=== PATIENT | male | born 1980 | race Hispanic/Latino ===

== ENCOUNTER 2018-08-16 09:54 | Inpatient (IN) | payer SELFPAY ==
[2018-08-16] MEDS ORDERED: hydrALAZINE 20 MG/ML VIAL ONE (10:30)
[2018-08-16 10:33] LABS: #Basophils 0.1 thou/uL (0.0-0.2); #Eosinphils 0.9 thou/uL (0.0-0.7); #Lymphocytes 2.4 thou/uL (1.20-3.40); #Monocytes 0.7 thou/uL (0.11-0.59); %Basophils 0.7 % (0.0-1.0); %Eosinophils 8.9 % (0.0-10.0); %Lymphocytes 23.7 % (21.0-51.0); %Neutrophils 59.7 % (42.0-75.0); Hemoglobin 15.3 g/dL (14.0-18.0); Mean Corpuscular HGB CONC 34.7 g/dL (32.0-36.0); Mean Corpuscular Hemoglobin 31.8 pg (27.0-31.0); Mean Corpuscular Volume 91.7 fL (78.0-98.0); Mean Platelet Volume 9.2 fL (7.4-10.4); Platelet Count 259 thou/uL (130-400); RBC Distribution Width 11.7 % (11.5-14.5); White Blood Cell (WBC) Count 10.1 thou/uL (4.8-10.8)
[2018-08-16 10:58] LABS: ALT (SGPT) 32 U/L (8-55); AST (SGOT) 46 U/L (5-34); Albumin 2.3 g/dL (3.5-5.0); Alkaline Phosphatase 77 U/L (40-150); Anion Gap 15 mmol/L (10-20); BUN (Urea Nitrogen) 27 mg/dL (8.9-20.6); Bilirubin, Total 0.4 mg/dL (0.2-1.2); Calc. Creatinine Clearance 0 mL/min (70-130); Calcium 8.1 mg/dL (7.8-10.44); Carbon Dioxide 22 mmol/L (22-29); Chloride 109 mmol/L (98-107); Estimated GFR-MDRD 28; Globulin 3.3 g/dL (2.4-3.5); Glucose 131 mg/dL (70-105); Potassium 4.8 mmol/L (3.5-5.1); Protein, Total 5.6 g/dL (6.0-8.3); Sodium 141 mmol/L (136-145)
--- NOTE | 2018-08-16 11:24 | RAD ---
FRONTAL RADIOGRAPH CHEST PORTABLE UPRIGHT: Date: 08-16-18 Comparison: None. History: Shortness of breath. Diaphoresis and tachycardia. FINDINGS: No pneumothorax is seen. No large volume pleural effusion is noted. There is increased linear interst itial density in the perihilar regions. There is a suggestion of subtle perihilar and right upper lob e ground glass opacity. IMPRESSION: Interstitial prominence with mild perihilar and right upper lobe ground glass opacity. Findings may b e on the basis of infectious pneumonitis or inhalational alveolitis. Clinical correlation is required . Recommend short term follow up imaging following treatment to document resolution. POS: [facility]
[2018-08-16 11:39] LABS: CKMB 6.3 ng/mL (0-6.6)
[2018-08-16 14:32] LABS: Troponin I 0.042 ng/mL (< 0.028)
[2018-08-16] MEDS ORDERED: cefTRIAXone\\ROCEPHIN 2 GM VIAL ONE (15:07)
[2018-08-16] MEDS ORDERED: Sodium Chloride 0.9% 100 ML ONE (15:07)
[2018-08-16] MEDS ORDERED: Azithromycin 500 MG VIAL ONE (15:07)
--- NOTE | 2018-08-16 16:12 | HP ---
PRIMARY CARE PHYSICIAN: [facility]. REASON FOR ADMISSION: Hypertensive urgency, acute kidney failure, dyspnea, and chest pain. HISTORY OF PRESENT ILLNESS: A 37-year-old male who reports that he does not have any medical history and he is not following any primary care physician. He was advised to go to emergency room by his sister, and that is why he came to emergency room. The patient reports that on Monday he was having dry cough and he was also having mild shortness of breath. Last night, the patient was having more shortness of breath. He was not able to lie down flat. He was feeling comfortable in sitting up position. In the right or left lateral position, he was feeling chest tightness and shortness of breath, so he remained seated up. Whenever he was keeping his both upper extremities elevated in sitting position, he was feeling better, but that was associated with shortness of breath. He was also having dry nonproductive cough. His chest pain was sharp, stabbing in nature, as if somebody stabbing in his chest. He has never had this type of problem before. He denies any fever or chills. He denies any recent upper respiratory or lower respiratory infection. He denies any flu vaccine this year. He reports that he never got sick for last 2 to 3 years. The patient reports that he is working in [employer] where exhaust fan is not working well, so he is exposed to high temperature, and he attributes everything related with that fume exposure. He denies any headache. He denies any focal motor or sensory symptoms. He denies any previous orthopnea or PND. He denies any dyspnea on exertion. When I saw this patient in the emergency room, the patient was hypertensive. Initially, in the emergency room, blood pressure was 258/132. He was tachycardic and afebrile. He denies any lower extremity edema or calf tenderness. He denies any syncope. He denies any constipation, diarrhea, melena, or hematochezia. The patient is not sure about his hypertension history or any kidney problem. REVIEW OF SYSTEMS: CONSTITUTIONAL: Negative for weight loss or gain, ability to conduct usual activities. SKIN: Negative for rash, itching. EYES: Negative for double vision, pain. ENT/MOUTH: Negative for nose bleeding, neck stiffness, pain, tenderness. CARDIOVASCULAR: Negative for palpitations, dyspnea on exertion, orthopnea. RESPIRATORY: Negative for shortness of breath, wheezing, cough, hemoptysis, fever or night sweats. GASTROINTESTINAL: Negative for poor appetite, abdominal pain, heartburn, nausea, vomiting, constipation, or diarrhea. GENITOURINARY: Negative for urgency, frequency, dysuria, nocturia. MUSCULOSKELETAL: Negative for pain, swelling. NEUROLOGIC/PSYCHIATRIC: Negative for anxiety, depression. ALLERGY/IMMUNOLOGIC: Negative for skin rash, bleeding tendency. Please see my HPI for pertinent positive and negative. All other review of systems reviewed and negative except as mentioned in the HPI. PAST MEDICAL HISTORY: The patient does not have any medical history in the past. He does not follow any doctor. PAST SURGICAL HISTORY: The patient denies any previous surgical history. PAST PSYCHIATRIC HISTORY: The patient denies any previous psychiatric history. SOCIAL HISTORY: The patient is smoking about one pack per day. He quit drinking 6 months ago, and he has a remote history of cocaine abuse which he quit 3 years ago. He is working in [employer]. FAMILY HISTORY: Grandparent is in dialysis. Father and mother both have diabetes and hypertension. ALLERGIES: NO KNOWN DRUG ALLERGIES. CURRENT HOME MEDICATIONS: The patient is not taking any prescribed or non-prescribed medication. EMERGENCY ROOM COURSE: The patient is given Rocephin, azithromycin, hydralazine 10 mg x2, NS 1 L. PHYSICAL EXAMINATION: VITAL SIGNS: On arrival, blood pressure 258/132 and currently 186/155, pulse 122 and currently 115, respiratory rate 15, temperature 98.9, and saturation 97% on room air. Weight 83.9 kg. GENERAL: The patient is currently alert, awake, in no obvious acute distress, hypertensive, tachycardic. HEENT: Head; normocephalic, atraumatic. Eyes; pupils are round, reactive to light. Extraocular muscle intact. ENT; oropharynx within normal limits. Moist mucous membranes. No oral lesion. No pharyngeal erythema. No exudate. NECK: Supple. No JVD. No thyromegaly. No carotid bruit. No lymphadenopathy. LUNGS: Clear to auscultation without any rhonchi or rales, but coarse breath sounds noted. No accessory muscles of respiration in use. CARDIAC: S1 and S2, regular, tachycardia. No murmur. No gallop. No rub. ABDOMEN: Soft. Bowel sounds present. Nontender. Nondistended. No organomegaly. No mass. No suprapubic tenderness. BACK: Unremarkable. No CVA tenderness. EXTREMITIES: Upper extremities; passive movement of all joints is normal. Lower extremities; no edema. Good distal pulsation. No calf tenderness. SKIN: No skin rash. HEMATOLOGICAL: No lymphadenopathy. PSYCHIATRIC: Normal affect. SIGNIFICANT LABORATORY DATA: EKG showing sinus tachycardia, nonspecific ST-T changes. Chest x-ray showing interstitial prominence with mild perihilar and right upper lobe ground-glass opacity. CBC: WBC 10.1, hemoglobin 15.3, platelet 259. BMP: Sodium 141, potassium 4.8, chloride 109, carbon dioxide 22, anion gap 15, BUN 27, creatinine 2.61, glucose 131, calcium 8.1. LFT: AST 46, ALT 32, alkaline phosphatase 77, albumin 2.3. CK-MB 6.3. Troponin I 0.067 and then 0.042. ASSESSMENT AND PLAN: 1. Acute hypertensive urgency. The patient has significantly elevated blood pressure. At this point, we will try to keep blood pressure systolic around 160 to 180 range. We will start nitroglycerin patch q.8 hourly. We will use hydralazine and labetalol p.r.n. basis. We will start Coreg 25 mg p.o. b.i.d., and tomorrow if blood pressure continues to remain high, then we will add calcium channel mark. During this admission, we will titrate his blood pressure medication. 2. Chest pain and dyspnea. I am suspecting diastolic dysfunction. We will obtain echocardiography. The patient also has elevated troponin, and thus I will do cardiac etiology, it needs to be ruled out. We will continue nitroglycerin patch q.8 hourly, aspirin 325 mg p.o. daily. We will check lipid profile for risk stratification. We will check BNP as well. 3. Acute kidney failure. I am suspecting from chronic hypertension related hypertensive nephrosclerosis given hypoalbuminemia. I will check urinalysis and urine protein-creatinine ratio. We will obtain renal ultrasound to rule out any medical renal disease. 4. Demand ischemia of myocardium, likely related with hypertensive urgency. We will do serial cardiac enzyme x3 and the patient is already on aspirin and nitroglycerin patch. 5. History of polysubstance abuse. We will check urine drug screen. Smoking cessation counseling given. Healthy lifestyle measure discussed with the patient. 6. Abnormal chest x-ray. I am suspecting abnormal chest x-ray from predominantly hypertension related early congestion, but underlying atypical pneumonia cannot be entirely excluded. We will continue with the empiric levofloxacin monotherapy while in the hospital, and I will also check respiratory virus panel. 7. Deep venous thrombosis prophylaxis, heparin 5000 units subcu twice daily. 8. Gastrointestinal prophylaxis, Pepcid 20 mg daily. CODE STATUS: The patient is full code. The patient does not have any surrogate decision maker. DISPOSITION PLAN: Based on clinical course, we are expecting the patient's stay in the hospital more than two midnights. Plan of care discussed with the patient in detail. Job ID: [id number]
[2018-08-16] MEDS ORDERED: Acetaminophen 325 MG TAB PO PRN ×2 (16:39→16:42)
[2018-08-16] MEDS ORDERED: Ondansetron ODT 4 MG TAB SL PRN (16:39)
[2018-08-16] MEDS ORDERED: Ondansetron PF 4 MG/2 ML Vial IVP PRN ×2 (16:39→16:42)
[2018-08-16] MEDS ORDERED: HYDROcodone/Acetaminophen 5/325 mg Tablet PO PRN (16:42)
[2018-08-16] MEDS ORDERED: Artificial Tears 18 DROP/0.9 ML EA EYE PRN (16:42)
[2018-08-16] MEDS ORDERED: Zolpidem Tartrate 5 MG TAB PO PRN (16:42)
[2018-08-16] MEDS ORDERED: Calcium Carbonate 500 MG ChewTAB PO PRN (16:42)
[2018-08-16] MEDS ORDERED: Labetalol HCl 100 MG/20 ML VIAL SLOW IVP PRN (16:42)
[2018-08-16] MEDS ORDERED: Bisacodyl 10 MG SUPP PR PRN (16:42)
[2018-08-16] MEDS ORDERED: Bisacodyl 5 MG TAB PO PRN (16:42)
[2018-08-16] MEDS ORDERED: Eucerin (Mineral Oil/Petrolatum,White) 30 gm Jar TOP PRN (16:42)
[2018-08-16] MEDS ORDERED: cloNIDine 0.1 MG TAB PO PRN (16:42)
[2018-08-16] MEDS ORDERED: hydrALAZINE 20 MG/ML VIAL SLOW IVP PRN (16:42)
[2018-08-16] MEDS ORDERED: Loratadine 10 MG TAB PO PRN (16:42)
[2018-08-16] MEDS ORDERED: Senokot S 8.6-50 MG TAB PO PRN (16:42)
[2018-08-16] MEDS ORDERED: Sodium Chloride 0.65% Nasal 44 ML BOT EA NARE PRN (16:42)
[2018-08-16] MEDS ORDERED: Cepastat Lozenges 1 LOZ PO PRN (16:42)
[2018-08-16] MEDS ORDERED: Nitroglycerin 0.4 MG TAB (25 Tab Bottle) SL PRN (16:42)
[2018-08-16] MEDS ORDERED: Diabetic Tussin 200 MG/10 ML UDCUP PO PRN (16:42)
[2018-08-16] MEDS ORDERED: Loperamide HCl 2 MG CAP PO PRN (16:42)
[2018-08-16] MEDS ORDERED: Ondansetron ODT 4 MG TAB PO PRN (16:42)
[2018-08-16] MEDS ORDERED: Azithromycin 500 MG in Sodium Chloride 0.9% 250 ML 250 ML IVPB SCH (16:45)
[2018-08-16 17:02] VITALS: BMI 27.2
[2018-08-16 17:48] LABS: Bilirubin Negative (Negative); Blood, Urine Small (Negative); Clarity CLEAR (Clear); Glucose, Urine (Dipstick) 500 mg/dL (Negative); Leukocyte Negative (Negative); Nitrite Negative (Negative); Protein, Urine (Dipstick) 300 mg/dL (Neg-Trace); Specific Gravity, Urine 1.014 (1.002-1.036); pH, Urine 6.5 (5.0-9.0)
[2018-08-16 17:49] LABS: Bacteria/HPF None Seen HPF (None Seen); Hyaline Casts/LPF 4-6 HYALINE CAST LPF (0-3 Hyaline); Pathc Cast-AUWi Flag 1.59 (0-2.49); WBC/HPF 0-3 HPF (0-3)
[2018-08-16 19:28] LABS: Amphetamine Not Detected (NotDetected); Barbiturates Screen Not Detected (NotDetected); Benzodiazepine Screen Not Detected (NotDetected); Cocaine Metabolite Screen Not Detected (NotDetected); Medtox Control Line Valid? VALID (VALID); Medtox Reader # READER 1; Methadone Not Detected (NotDetected); Methamphetamine Not Detected (NotDetected); Opiate Screen Not Detected (NotDetected); Oxycodone Screen Not Detected (NotDetected); Phencyclidine (PCP) Not Detected (NotDetected); THC/Cannabinoid Screen Not Detected (NotDetected); Tricyclic Screen Not Detected (NotDetected)
[2018-08-16] MEDS: Heparin 5,000 UNITS/ML VIAL SC SCH (20:45)
[2018-08-16] MEDS: Nitroglycerin 2% Ointment 1 INCH/1 GM Packet TOP SCH (20:45)
[2018-08-16] MEDS: guaiFENesin ER 600 MG TAB PO SCH (20:45)
[2018-08-16] MEDS: Carvedilol 25 MG TAB PO SCH (20:45)
[2018-08-17 05:35] LABS: #Basophils 0.1 thou/uL (0.0-0.2); #Eosinphils 0.8 thou/uL (0.0-0.7); #Lymphocytes 1.8 thou/uL (1.20-3.40); #Monocytes 0.7 thou/uL (0.11-0.59); #Neutrophils 5.3 thou/uL (1.40-6.50); %Basophils 0.6 % (0.0-1.0); %Eosinophils 9.2 % (0.0-10.0); %Monocytes 8.5 % (0.0-10.0); %Neutrophils 60.8 % (42.0-75.0); Hemoglobin 12.1 g/dL (14.0-18.0); Mean Corpuscular HGB CONC 34.3 g/dL (32.0-36.0); Mean Corpuscular Hemoglobin 31.7 pg (27.0-31.0); Mean Corpuscular Volume 92.3 fL (78.0-98.0); Mean Platelet Volume 9.3 fL (7.4-10.4); Platelet Count 227 thou/uL (130-400); RBC Distribution Width 11.8 % (11.5-14.5); Red Blood Cell (RBC) Count 3.81 mill/uL (4.70-6.10); White Blood Cell (WBC) Count 8.8 thou/uL (4.8-10.8)
[2018-08-17 05:38] LABS: ALT (SGPT) 23 U/L (8-55); AST (SGOT) 26 U/L (5-34); Albumin 1.9 g/dL (3.5-5.0); Alkaline Phosphatase 46 U/L (40-150); Anion Gap 8 mmol/L (10-20); BUN (Urea Nitrogen) 25 mg/dL (8.9-20.6); Bilirubin, Total 0.3 mg/dL (0.2-1.2); Calc. Creatinine Clearance 51 mL/min (70-130); Calcium 7.9 mg/dL (7.8-10.44); Carbon Dioxide 25 mmol/L (22-29); Cardiac Risk 5.9 (Less than 4.5); Chloride 111 mmol/L (98-107); Cholesterol 195 mg/dl (< 200 Desired); Estimated GFR-MDRD 30; Globulin 2.4 g/dL (2.4-3.5); Glucose 98 mg/dL (70-105); HDL Cholesterol 33 mg/dL (>60 Neg Risk); LDL Cholesterol, Calculated 143 mg/dL; Phosphorus 3.4 mg/dL (2.3-4.7); Potassium 3.6 mmol/L (3.5-5.1); Protein, Total 4.3 g/dL (6.0-8.3); Sodium 140 mmol/L (136-145); Triglycerides 96 mg/dL (Less than 150)
[2018-08-17] MEDS: Nitroglycerin 2% Ointment 1 INCH/1 GM Packet TOP SCH (05:40)
[2018-08-17 07:50] VITALS: TEMP 98.2
[2018-08-17] MEDS: Carvedilol 25 MG TAB PO SCH (07:51)
[2018-08-17] MEDS: guaiFENesin ER 600 MG TAB PO SCH (07:52)
[2018-08-17] MEDS: Heparin 5,000 UNITS/ML VIAL SC SCH (07:55)
[2018-08-17] MEDS ORDERED: Famotidine 20 MG TAB PO SCH (09:00)
[2018-08-17] MEDS ORDERED: Aspirin 325 MG TAB PO SCH (09:00)
[2018-08-17 09:19] VITALS: BP 124/76
--- NOTE | 2018-08-17 13:05 | DIS ---
DATE OF ADMISSION: 08/16/2018 DATE OF DISCHARGE: 08/17/2018 PRIMARY CARE PHYSICIAN: [facility] Call Admission. DISCHARGE DISPOSITION: Against medical advice. PRIMARY DISCHARGE DIAGNOSES: 1. Acute kidney failure. 2. Atypical pneumonia. 3. Elevated BNP. 4. Elevated troponin. 5. Hypertensive urgency. 6. Hypoalbuminemia. SECONDARY DISCHARGE DIAGNOSES: History of polysubstance abuse. PRIMARY PROCEDURE/OPERATION: None. RADIOLOGICAL INVESTIGATION: Chest x-ray showed interstitial prominence with mild perihilar and right upper lobe ground-glass opacity. LABORATORY DATA: Significant labs; WBC 8.8, hemoglobin 12.1, and platelet 227. Sodium 140, potassium 3.6, BUN 25, creatinine 2.41. LFT normal. Troponin 0.060. BNP 1522, PTH 184, LDL 143. Urinalysis showing proteinuria, glucosuria. Urine drug screen negative. Blood culture negative. Respiratory virus panel negative. DISCHARGE MEDICATION: The patient left against medical advice and without any prescription. CONTRAINDICATION: None. CODE STATUS: Full code. INPATIENT QUARRY SUPERVISOR OPEN PIT: None. TEST RESULTS PENDING ON DISCHARGE: None. ALLERGIES: NO KNOWN DRUG ALLERGIES. DISCHARGE PLAN POST HOSPITAL: The patient left hospital against medical advice. HOSPITAL COURSE: A 37-year-old male, who was admitted by me yesterday. Please see my HPI for further details. 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 He was not aware of any medical problem. He was made to go to ER by his sister. The patient was having dyspnea on exertion, chest pain, heaviness, and cough. We suspected atypical pneumonia based on chest x-ray, but on admission, he was having hypertensive urgency. His blood pressure was severely high. We also found acute kidney failure, hypoalbuminemia. We are suspecting hypertension-related nephrosclerosis from uncontrolled and untreated hypertension. He also has elevated BNP and we are suspecting diastolic dysfunction. We treated him with levofloxacin while in the hospital. We started antihypertensives medication while in the hospital. His blood pressure was not controlled upon discharge. We advised this patient to stay in the hospital for further evaluation. I spent significant amount of time to explain and pursue him to stay in the hospital for better take care of him, but he decided to leave against medical advice. I have seen and examined the patient at bedside. PHYSICAL EXAMINATION: VITAL SIGNS: Currently, temperature 98.2, pulse 94, respiratory rate 18, saturation 100% on room air, blood pressure 197/126, weight 189 pounds. GENERAL: The patient is currently alert and awake. No obvious acute distress. HEENT: Head; normocephalic and atraumatic. Eyes; pupils are round, reactive to light. Extraocular muscle intact. ENT; oropharynx within normal limits. Moist mucous membranes. No oral lesion. No pharyngeal erythema. No exudate. NECK: Supple. No JVD. No thyromegaly. No carotid bruit. LUNGS: Clear to auscultation without any rhonchi or rales. CARDIAC: S1 and S2 regular without any murmur. ABDOMEN: Soft and benign. EXTREMITIES: No edema. NEUROLOGIC: Nonfocal examination. The patient is medically not stable for discharge, but he left the hospital against medical advice. Job ID: [id number]
--- NOTE | 2018-08-18 13:48 | EKG ---
Test Reason : DIFF BREATHING Blood Pressure : / mmHG Vent. Rate : 121 BPM Atrial Rate : 121 BPM P-R Int : 142 ms QRS Dur : 100 ms QT Int : 346 ms P-R-T Axes : 044 042 063 degrees QTc Int : 491 ms Sinus tachycardia Possible Left atrial enlargement Nonspecific T wave abnormality Abnormal ECG Confirmed by ALESSANDRO REZA ([id number]), image editor RUBI SALAZAR ([id number]) on 08/18/2018 1:48:01 PM Referred By: Confirmed By:ALESSANDRO REZA
== END 2018-08-17 09:20 | disposition left against medical advice (07) | DRG 682 ==
LOC: ERS 09:54 → 2NO 13:30
PROVIDERS: ADMIT Internal Medicine; ATTEND Internal Medicine
DX: N17.9 Acute kidney failure, unspecified (principal); J18.9 Pneumonia, unspecified organism; I24.8 Other forms of acute ischemic heart disease; I16.0 Hypertensive urgency; I10 Essential (primary) hypertension; F14.11 Cocaine abuse, in remission; F17.210 Nicotine dependence, cigarettes, uncomplicated; E88.09 Other disorders of plasma-protein metabolism, not elsewhere classified
CPT/HCPCS: 36415; 71045; 80053; 80061; 80306; 81001; 82553; 83605; 83880; 83970; 84100; 84484; 85025; 87040; 87633; 93005; 96361; 96365; 96375; 96376; J0360; J0456; J0696; J1644; J1956; J7050

== ENCOUNTER 2018-11-26 18:30 | Inpatient (IN) | payer SELFPAY ==
[2018-11-26 19:17] LABS: #Basophils 0.1 thou/uL (0.0-0.2); #Eosinphils 0.9 thou/uL (0.0-0.7); #Lymphocytes 1.4 thou/uL (1.20-3.40); #Monocytes 0.8 thou/uL (0.11-0.59); #Neutrophils 8.8 thou/uL (1.40-6.50); %Basophils 0.5 % (0.0-1.0); %Eosinophils 7.3 % (0.0-10.0); %Lymphocytes 11.6 % (21.0-51.0); %Monocytes 7.1 % (0.0-10.0); %Neutrophils 73.6 % (42.0-75.0); Hemoglobin 10.5 g/dL (14.0-18.0); Mean Corpuscular HGB CONC 33.3 g/dL (32.0-36.0); Mean Corpuscular Hemoglobin 29.5 pg (27.0-31.0); Mean Corpuscular Volume 88.6 fL (78.0-98.0); Mean Platelet Volume 7.3 fL (7.4-10.4); Platelet Count 519 thou/uL (130-400); RBC Distribution Width 12.1 % (11.5-14.5); Red Blood Cell (RBC) Count 3.56 mill/uL (4.70-6.10); White Blood Cell (WBC) Count 11.9 thou/uL (4.8-10.8)
[2018-11-26 19:34] LABS: ALT (SGPT) 27 U/L (8-55); AST (SGOT) 27 U/L (5-34); Albumin 2.2 g/dL (3.5-5.0); Alkaline Phosphatase 77 U/L (40-150); Anion Gap 14 mmol/L (10-20); BUN (Urea Nitrogen) 44 mg/dL (8.9-20.6); Bilirubin, Total 0.2 mg/dL (0.2-1.2); Calc. Creatinine Clearance 0 mL/min (70-130); Calcium 8.7 mg/dL (7.8-10.44); Carbon Dioxide 18 mmol/L (22-29); Chloride 108 mmol/L (98-107); Estimated GFR-MDRD 23; Globulin 3.6 g/dL (2.4-3.5); Glucose 132 mg/dL (70-105); Potassium 4.5 mmol/L (3.5-5.1); Protein, Total 5.8 g/dL (6.0-8.3); Sodium 135 mmol/L (136-145)
[2018-11-26 19:37] LABS: Bilirubin Negative (Negative); Blood, Urine Moderate (Negative); Clarity CLOUDY (Clear); Glucose, Urine (Dipstick) 250 mg/dL (Negative); Leukocyte Negative (Negative); Nitrite Negative (Negative); Protein, Urine (Dipstick) 300 mg/dL (Neg-Trace); Specific Gravity, Urine 1.017 (1.002-1.036); Urobilinogen 0.2 mg/dL (0.2-1.0); pH, Urine 5.5 (5.0-9.0)
[2018-11-26 19:38] LABS: Squamous Epithelial 0-3 HPF (0-3)
[2018-11-26 19:39] LABS: Pathc Cast-AUWi Flag 3.67 (0-2.49)
[2018-11-26] MEDS ORDERED: Piperacillin/Tazobactam 4.5 GM VIAL ONE (19:48)
[2018-11-26 19:49] LABS: Bacteria/HPF 2+ HPF (None Seen); Hyaline Casts/LPF 0-3 HYALINE CAST LPF (0-3 Hyaline); Manual Microscopic Reviewed? No Path Casts Seen; Renal Epithelial None Seen HPF (0-3)
[2018-11-26 19:58] LABS: CKMB 6.9 ng/mL (0-6.6)
[2018-11-26] MEDS ORDERED: Vancomycin HCl 1.5 GM in Sodium Chloride 0.9% 250 ML 300 ML IVPB ONE (20:00)
--- NOTE | 2018-11-26 20:21 | RAD ---
CHEST ONE VIEW: History: Dyspnea. Comparison: 08-16-18 FINDINGS: Cardiac silhouette is magnified and upper limits of normal in size. Dense bilateral infiltrates invol ve primarily the lower lobes, obscuring the right hemidiaphragm. Pulmonary vasculature upper limits o f normal. No evidence of pneumothorax. Probable blunting of the right costophrenic angle with fluid. IMPRESSION: 1. Dense bilateral lower lobe infiltrates. Clinical correlation regarding other signs and symptoms of bilateral lower lobe pneumonia is required. 2. Probable small right pleural effusion. POS: [facility]
[2018-11-26] MEDS ORDERED: hydrALAZINE 20 MG/ML VIAL ONE ×2 (20:41→22:05)
[2018-11-26] MEDS ORDERED: Furosemide 40 MG/4 ML VIAL ONE (21:03)
[2018-11-26 22:08] LABS: Troponin I 0.048 ng/mL (< 0.028)
[2018-11-26] MEDS ORDERED: Ondansetron ODT 4 MG TAB SL PRN (23:16)
[2018-11-26] MEDS ORDERED: Ondansetron PF 4 MG/2 ML Vial IVP PRN (23:16)
[2018-11-26] MEDS ORDERED: Acetaminophen 325 MG TAB PO PRN ×2 (23:16→23:23)
[2018-11-26 23:38] VITALS: BMI 26.9
[2018-11-26] MEDS: Labetalol HCl 100 MG/20 ML VIAL SLOW IVP PRN (23:59)
--- NOTE | 2018-11-27 00:33 | HP ---
PRIMARY CARE PHYSICIAN: The patient does not have a primary care physician. CHIEF COMPLAINT: Shortness of breath, "I am having trouble breathing." HISTORY OF PRESENT ILLNESS: Mr. Lucas is a very pleasant 38-year-old gentleman. He says that he has had hypertension for at least 10 years, but has never had any medications for it. He was also recently hospitalized at our facility back in August for pneumonia and at that time, he left against medical advice. He says that he "was doing fine" until recently about 2 weeks ago he started getting pain in the center of his back when he breathes. He says it is not all the time, but it would happen off and on. He also mentions some mild dyspnea on exertion and says he has had an occasional cough, but denies any fevers or chills. No nausea, no vomiting. As a result, he came to the ER for evaluation. When he came to the ER, it was noted that his blood pressure was extremely high at 210/135. He had a chest x-ray that showed cardiomegaly and bilateral pulmonary vascular markings and he is being admitted for pneumonia and possibly CHF exacerbation. The patient also admits to some lower extremity edema over the last week, but denies any PND, no orthopnea, and he denies any chest pain. REVIEW OF SYSTEMS: All systems were reviewed and are negative except for that mentioned in the history of present illness. PAST MEDICAL HISTORY: Significant for hypertension for at least 10 years and has been untreated. PAST SURGICAL HISTORY: Negative. ALLERGIES: NO KNOWN DRUG ALLERGIES. FAMILY HISTORY: Significant for hypertension and diabetes in both parents and he had a grandfather with end-stage renal disease. SOCIAL HISTORY: He is single. No children. He says he is a former smoker. He quit this September. Prior to that, he smoked about 2 packs a day for 6 years and he also used to drink and quit a year ago. CURRENT MEDICATIONS: None. PHYSICAL EXAMINATION: VITAL SIGNS: Blood pressure was 188/123, heart rate 110, respiratory rate of 30, temperature is afebrile GENERAL: He is well developed and well nourished. He appears to be in no acute distress. HEENT: Pupils are equal, round, and reactive. Extraocular muscles are intact. Sclerae anicteric. Throat, no erythema, no exudates. NECK: No adenopathy. No bruits. LUNGS: He has coarse breath sounds bilaterally and some rales at both bases, but the left is greater than the right. CARDIOVASCULAR: He has a normal S1 and S2. It is mildly tachycardic. There was no S3 or S4. No murmurs, clicks, or rubs. ABDOMEN: Soft. It is nontender and nondistended. Positive for bowel sounds. No rebound or guarding. EXTREMITIES: He has 2+ pitting edema bilaterally. NEUROLOGIC: Cranial nerves 2 through 12 are intact. His muscle strength is 5/5. SKIN AND INTEGUMENT: He does have quite a bit of scarring and hyperpigmentation in the lower extremities. LABORATORY RESULTS: Sodium is 135, potassium 4.5, chloride is 108, CO2 is 18, BUN of 44, creatinine of 3.01, glucose is 132. He had troponin of 0.041. BNP of 2451. White blood cell count 11.9, hemoglobin of 10.5, hematocrit is 31.6, and platelet count was 519. On his EKG, it was sinus tachycardia. The heart rate is approximately 110. He had some evidence of left atrial enlargement, this is by my reading. Also had a chest x-ray showing cardiomegaly and increased pulmonary vascular markings, also by my reading. ASSESSMENT: This is a 38-year-old gentleman, who presents with progressive shortness of breath. He has uncontrolled hypertension and has had hypertension for many years untreated. He also has a chest x-ray with bilateral pulmonary vascular markings. He has an elevated BNP as well as elevated troponin. I suspect that the shortness of breath is most likely due to new onset congestive heart failure, likely systolic heart failure from uncontrolled hypertension. Pneumonia is also possibility; however, I think it is lower on the differential. His procalcitonin is negative. He does not have an elevated white count nor does he have fever. However, he has been started on antibiotics in the ER and we will go ahead and continue those for now. 1. Hypertension, uncontrolled. He will need to be started on medications for blood pressure. However, I would like to start an JEREMY inhibitor; but given his renal insufficiency, we will treat with beta mark and hydralazine and nitrates for now. 2. Probable new onset congestive heart failure. We will get an echocardiogram again, start him on a beta mark, JEREMY inhibitor. I am unable to start due to renal insufficiency and consult Cardiology should he have significantly low EF. 3. Acute on chronic kidney disease. Get a renal ultrasound and urine electrolytes and monitor his creatinine during the hospital stay. I suspect this is a progression of his chronic kidney disease from hypertension. We will also place him on DVT and GI prophylaxis. Job ID: [id number]
[2018-11-27 00:46] LABS: Creatinine, Urine 76.86 mg/dL (63-166)
[2018-11-27 01:46] LABS: Troponin I 0.051 ng/mL (< 0.028)
[2018-11-27] MEDS: cloNIDine 0.1 MG TAB PO PRN ×2 (04:25→12:49)
[2018-11-27] MEDS: Furosemide 40 MG/4 ML VIAL SLOW IVP SCH ×2 (06:16→12:49)
[2018-11-27 06:31] LABS: #Eosinphils 0.4 thou/uL (0.0-0.7); #Lymphocytes 0.8 thou/uL (1.20-3.40); #Monocytes 0.7 thou/uL (0.11-0.59); %Basophils 0.3 % (0.0-1.0); %Eosinophils 2.8 % (0.0-10.0); %Lymphocytes 6.2 % (21.0-51.0); %Monocytes 5.4 % (0.0-10.0); %Neutrophils 85.3 % (42.0-75.0); Hemoglobin 9.1 g/dL (14.0-18.0); Mean Corpuscular HGB CONC 33.4 g/dL (32.0-36.0); Mean Corpuscular Hemoglobin 29.9 pg (27.0-31.0); Mean Corpuscular Volume 89.7 fL (78.0-98.0); Mean Platelet Volume 7.2 fL (7.4-10.4); Platelet Count 388 thou/uL (130-400); RBC Distribution Width 12.1 % (11.5-14.5); Red Blood Cell (RBC) Count 3.05 mill/uL (4.70-6.10); White Blood Cell (WBC) Count 12.9 thou/uL (4.8-10.8)
[2018-11-27 06:35] LABS: Anion Gap 12 mmol/L (10-20); BUN (Urea Nitrogen) 42 mg/dL (8.9-20.6); Calc. Creatinine Clearance 41 mL/min (70-130); Calcium 8.1 mg/dL (7.8-10.44); Carbon Dioxide 19 mmol/L (22-29); Chloride 110 mmol/L (98-107); Estimated GFR-MDRD 25; Glucose 166 mg/dL (70-105); Potassium 4.1 mmol/L (3.5-5.1); Sodium 137 mmol/L (136-145)
--- NOTE | 2018-11-27 06:38 | ULT ---
RENAL SONOGRAM: HISTORY: Renal failure. FINDINGS: The right kidney is 11.2 cm. Exophytic cyst at the superior pole measures up to 1.9 cm. No hydronep hrosis. The urinary bladder is unremarkable. The left kidney is 11.8 cm, without hydronephrosis or mass. IMPRESSION: 1. No evidence of urinary tract obstruction. 2. Small right renal cyst. POS: [facility]
[2018-11-27] MEDS: Heparin 5,000 UNITS/ML VIAL SC SCH ×3 (08:55→20:37)
[2018-11-27] MEDS: Aspirin 325 MG TAB PO SCH (08:55)
[2018-11-27] MEDS: Famotidine 20 MG TAB PO SCH ×2 (08:55→20:37)
[2018-11-27] MEDS: Carvedilol 6.25 MG TAB PO SCH ×2 (08:55→16:45)
[2018-11-27] MEDS: hydrALAZINE 25 MG TAB PO SCH ×3 (08:55→20:37)
--- NOTE | 2018-11-27 19:38 | PDOC.PN ---
- Subjective Encounter Start Date: 11/27/18 Encounter Start Time: 11:00 Pt seen for followup re: hypertensive urgency. Denies chest pain. Reports SOBOE. - Objective Resuscitation Status - Order Detail: 11/26/18 21:42 Resuscitation Status Routine Resuscitation Status: FULL: Full Resuscitation MAR Reviewed: Yes Vital Signs & Weight: Vital Signs (12 hours) Temp Pulse BP 11/27/18 19:11 98.5 F 11/27/18 16:45 164/106 H 11/27/18 15:40 98.7 F 11/27/18 12:49 180/116 H 11/27/18 11:23 99.4 F 11/27/18 08:55 102 H 169/107 H Weight Weight 184 lb 5 oz Most Recent Monitor Data Heart Rate from ECG 88 NIBP 142/91 NIBP BP-Mean 108 Respiration from ECG 27 SpO2 92 I&O: 11/26/18 11/27/18 11/28/18 06:59 06:59 06:59 Intake Total 744 680 Output Total 1450 1600 Balance -706 -920 Result Diagrams: 11/27/18 05:30 11/27/18 05:30 EKG Reviewed by me: Yes (Tele: NSR) Dx/Plan (1) CHF exacerbation Code(s): I50.9 - HEART FAILURE, UNSPECIFIED Status: Acute Qualifiers: Heart failure type: systolic Qualified Code(s): I50.23 - Acute on chronic systolic (congestive) heart failure Comment: continue furosemide (2) Cardiomyopathy Code(s): I42.9 - CARDIOMYOPATHY, UNSPECIFIED Status: Chronic Comment: continue beta mark. No ACEI/ARB due to renal failure (3) Hypertensive urgency Code(s): I16.0 - HYPERTENSIVE URGENCY Status: Chronic Comment: Improving (4) CKD stage 4 secondary to hypertension Code(s): I12.9 - HYPERTENSIVE CHRONIC KIDNEY DISEASE W STG 1-4/UNSP CHR KDNY; N18.4 - CHRONIC KIDNEY DISEASE, STAGE 4 (SEVERE) Status: Chronic Comment: follow creatinine, lytes - Plan * . Review of Systems - Review of Systems Constitutional: negative: fever, chills, sweats, weakness, malaise Respiratory: SOB with Excertion. negative: Cough, Shortness of Breath, Pleuritic Pain, Wheezing Cardiovascular: negative: chest pain, palpitations, orthopnea, paroxysmal nocturnal dyspnea, edema, light headedness Gastrointestinal: negative: Nausea, Vomiting, Abdominal Pain, Diarrhea, Constipation, Melena, Hematochezia Skin: negative: Rash, Lesions, Kem, Bruising - Medications/Allergies Allergies/Adverse Reactions: Allergies Allergy/AdvReac Type Severity Reaction Status Date / Time No Known Drug Allergies Allergy Verified 08/16/18 17:14 Medications: Current Medications Acetaminophen (Tylenol) 650 mg PO Q4H PRN PRN Reason: Headache/Fever/Mild Pain (1-3) Aspirin (Aspirin) 325 mg PO DAILY [facility] Last Admin: 11/27/18 08:55 Dose: 325 mg Carvedilol (Coreg) 6.25 mg PO BID-[facility] Last Admin: 11/27/18 16:45 Dose: 6.25 mg Clonidine (Catapres) 0.1 mg PO Q4H PRN PRN Reason: SBP > 180 Last Admin: 11/27/18 12:49 Dose: 0.1 mg Famotidine (Pepcid) 20 mg PO BID [facility] Last Admin: 11/27/18 08:55 Dose: 20 mg Furosemide (Lasix) 40 mg SLOW IVP 0600,1400 [facility] Last Admin: 11/27/18 12:49 Dose: 40 mg Heparin Sodium (Porcine) (Heparin) 5,000 units SC TID [facility] Last Admin: 11/27/18 16:45 Dose: 5,000 units Hydralazine HCl (Apresoline) 25 mg PO TID [facility] Last Admin: 11/27/18 16:45 Dose: 25 mg Levofloxacin 500 mg/ Device 100 mls @ 100 mls/hr IVPB Q24HR [facility] Isosorbide Mononitrate (Imdur Er) 30 mg PO DAILY [facility] Last Admin: 11/27/18 08:55 Dose: 30 mg Labetalol HCl (Normodyne) 20 mg SLOW IVP Q4H PRN PRN Reason: SBP > 180 and HR >/= 70 Last Admin: 11/26/18 23:59 Dose: 20 mg
[2018-11-28] MEDS: Furosemide 40 MG/4 ML VIAL SLOW IVP SCH ×2 (06:02→14:02)
[2018-11-28] MEDS: cloNIDine 0.1 MG TAB PO PRN ×2 (06:07→23:37)
[2018-11-28] MEDS: hydrALAZINE 25 MG TAB PO SCH ×3 (08:37→20:02)
[2018-11-28] MEDS: Heparin 5,000 UNITS/ML VIAL SC SCH ×3 (08:37→20:03)
[2018-11-28] MEDS: Carvedilol 6.25 MG TAB PO SCH ×2 (08:37→16:32)
[2018-11-28] MEDS: Famotidine 20 MG TAB PO SCH ×2 (08:37→19:58)
[2018-11-28] MEDS: Aspirin 325 MG TAB PO SCH (08:37)
[2018-11-28 10:29] LABS: Anion Gap 12 mmol/L (10-20); BUN (Urea Nitrogen) 42 mg/dL (8.9-20.6); Calc. Creatinine Clearance 34 mL/min (70-130); Calcium 8.4 mg/dL (7.8-10.44); Carbon Dioxide 25 mmol/L (22-29); Chloride 105 mmol/L (98-107); Estimated GFR-MDRD 21; Glucose 202 mg/dL (70-105); Potassium 4.1 mmol/L (3.5-5.1); Sodium 138 mmol/L (136-145)
[2018-11-28 11:32] LABS: Band 2 % (5-11); Eosinophils 4 % (0-10); Hemoglobin 9.7 g/dL (14.0-18.0); Lymphocytes 6 % (21-51); MDiff Complete? YES; Mean Corpuscular HGB CONC 32.9 g/dL (32.0-36.0); Mean Corpuscular Hemoglobin 29.4 pg (27.0-31.0); Mean Corpuscular Volume 89.4 fL (78.0-98.0); Mean Platelet Volume 7.8 fL (7.4-10.4); Monocytes 2 % (0-10); Neutrophil 86 % (42-75); Platelet Count 445 thou/uL (130-400); Platelet Morphology Comment Appears Increased; Polychromasia SLIGHT = 2-3 cells (100X) (0-2/hpf); RBC Distribution Width 12.2 % (11.5-14.5); Red Blood Cell (RBC) Count 3.29 mill/uL (4.70-6.10); White Blood Cell (WBC) Count 12.2 thou/uL (4.8-10.8)
--- NOTE | 2018-11-28 12:56 | CON ---
DATE OF CONSULTATION: REASON FOR CONSULTATION: Elevated creatinine. HISTORY OF PRESENT ILLNESS: This is a 38-year-old gentleman, who presented to the hospital for shortness of breath, was noted to have congestive heart failure. The patient had CKD. His prior creatinine was 2.6 in August, which has now increased to 3.3, which has been progressive. PAST MEDICAL HISTORY: Significant for pneumonia, CKD, hypertension, and congestive heart failure. SOCIAL HISTORY: No alcohol or drug use. FAMILY HISTORY: Negative for ESRD. ALLERGIES: REVIEWED. HOME MEDICATIONS: List reviewed. REVIEW OF SYSTEMS: A 15-point review of system was performed, negative except for what was noted above. GENERAL: HEAD: NECK: No swelling or lumps. NOSE: No epistaxis or discharge. EYES: No diplopia or pain. 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 NEUROPSYCHIATRIC SYSTEMS: No suicidal ideation. No ideation. SKIN: Denies any rash or ulcer. CONSTITUTIONAL: No fever or chills. PHYSICAL EXAMINATION: GENERAL: The patient is awake and alert. VITAL SIGNS: Afebrile, pulse 92, breathing 16, blood pressure 162/88. GENERAL APPEARANCE AND MENTAL STATUS: Fair. HEAD/NECK: Normocephalic. Atraumatic. EYES: EOMI. No deformity. EARS: Clear. No ulcers. NOSE: Intact. No lesions. MOUTH: Clear. No discharge. THROAT: Clear. No exudate. LUNGS: Clear. No crackles. CARDIAC: S1, S2. No rub. ABDOMEN: Benign. Bowel sounds positive. GENITALIA/RECTUM: Roth absent. BACK/EXTREMITIES: Edema 0+. NEUROLOGICAL: Alert and motor intact. SKIN: LYMPHATICS: LABORATORY DATA: Labs reviewed. ASSESSMENT: 1. Stage 4, chronic kidney disease with acute kidney injury, most likely due to cardiorenal syndrome. Continue diuretics. 2. Hypertension, stable. 3. Anemia, stable. 4. We will follow renal function and order imaging if already not done. Job ID: [id number]
--- NOTE | 2018-11-28 14:13 | CON ---
DATE OF CONSULTATION: HISTORY OF PRESENT ILLNESS: The patient is an unfortunate 38-year-old gentleman, who presented with increasing dyspnea and lower extremity swelling. The patient was recently admitted to the hospital with the diagnosis of pneumonia. He was at that time markedly hypertensive. The patient states that for the past few months he has developed progressive dyspnea with minimal exertion. He also reports having PND and orthopnea. The patient also for the past week has developed lower extremity swelling. The patient denies having any chest discomfort. PAST MEDICAL HISTORY: Hypertension. PAST SURGICAL HISTORY: None. SOCIAL HISTORY: Long history of heavy alcohol use. The patient quit drinking a year ago. Former smoker. ALLERGIES: NO KNOWN DRUG ALLERGIES. MEDICATIONS: None. REVIEW OF SYSTEMS: Ten-point system otherwise unremarkable. PHYSICAL EXAMINATION: GENERAL: This is a well-developed gentleman, no acute distress. VITAL SIGNS: Blood pressure 143/94. NECK: Showed no jugular venous distention. LUNGS: Few crackles in both bases. HEART: Regular rate and rhythm. Normal S1 and S2. No murmurs. ABDOMEN: Nondistended. EXTREMITIES: Showed moderate bilateral edema. VASCULAR: Radial pulses are 2+. LABORATORY DATA: Sodium 138, potassium 4.1, chloride 105, bicarbonate 25, BUN 42, creatinine 3.3. Troponin 0.051. White blood cell count 12.2, hemoglobin 9.7, hematocrit 29.4, and platelets 445. DIAGNOSTIC DATA: EKG revealed normal sinus rhythm with left atrial enlargement. Echocardiogram revealed moderate decrease in left ventricular systolic function estimated ejection fraction of 30% to 35%. IMPRESSION: 1. Congestive heart failure. 2. Cardiomyopathy, probably secondary to alcohol abuse. 3. Poorly controlled hypertension. 4. Chronic renal insufficiency. 5. History of ethanol abuse. 6. History of tobacco abuse. This gentleman presents with a congestive heart failure and cardiomyopathy. From a cardiac standpoint, he is being diuresed with IV Lasix. He has severe chronic renal insufficiency, so would need to avoid JEREMY inhibitor therapy at this time and the patient has been started on hydralazine. We will switch the patient to Isordil. We will follow this patient with you through his hospitalization in my office. Job ID: [id number]
--- NOTE | 2018-11-28 19:20 | PDOC.PN ---
- Subjective Encounter Start Date: 11/28/18 Encounter Start Time: 10:00 Pt seen for followup re: systolic CHF exacerbation. says he feels better. - Objective Resuscitation Status - Order Detail: 11/26/18 21:42 Resuscitation Status Routine Resuscitation Status: FULL: Full Resuscitation MAR Reviewed: Yes Vital Signs & Weight: Vital Signs (12 hours) Temp Pulse Pulse BP BP BP Pulse Ox 11/28/18 16:32 147/102 H 11/28/18 15:14 98.8 F 11/28/18 14:02 162/108 H 11/28/18 10:45 99.3 F 11/28/18 09:51 99 91 175/106 H 163/106 H 90 L 11/28/18 08:37 162/108 H Weight Weight 177 lb 11.081 oz Most Recent Monitor Data Heart Rate from ECG 79 NIBP 136/86 NIBP BP-Mean 102 Respiration from ECG 39 SpO2 92 I&O: 11/27/18 11/28/18 11/29/18 06:59 06:59 06:59 Intake Total 744 1405 890 Output Total 1450 2700 1800 Balance -706 -1295 -910 Result Diagrams: 11/28/18 09:30 11/28/18 09:30 EKG Reviewed by me: Yes (Tele: NSR) Phys Exam - Physical Examination Constitutional: NAD HEENT: moist MMs, sclera anicteric, oral pharynx no lesions, 2+ tonsils Neck: no nodes, no JVD, supple, full ROM Bobby crackles Cardiovascular: RRR, no rub S1, S2 Gastrointestinal: soft, non-tender, no distention, positive bowel sounds Neurological: moves all 4 limbs Psychiatric: normal affect Dx/Plan (1) CHF exacerbation Code(s): I50.9 - HEART FAILURE, UNSPECIFIED Status: Acute Qualifiers: Heart failure type: systolic Qualified Code(s): I50.23 - Acute on chronic systolic (congestive) heart failure Comment: continue furosemide for acute systolic CHF NYHA Class 3, ACC/AHA Class C (2) Cardiomyopathy Code(s): I42.9 - CARDIOMYOPATHY, UNSPECIFIED Status: Chronic Comment: continue beta mark. (3) Hypertensive urgency Code(s): I16.0 - HYPERTENSIVE URGENCY Status: Chronic Comment: Improving (4) CKD stage 4 secondary to hypertension Code(s): I12.9 - HYPERTENSIVE CHRONIC KIDNEY DISEASE W STG 1-4/UNSP CHR KDNY; N18.4 - CHRONIC KIDNEY DISEASE, STAGE 4 (SEVERE) Status: Chronic Comment: consult nephrology - Plan * . Review of Systems - Review of Systems Constitutional: negative: fever, chills, sweats, weakness, malaise Respiratory: SOB with Excertion. negative: Cough, Shortness of Breath, Pleuritic Pain, Wheezing Cardiovascular: negative: chest pain, palpitations, orthopnea, paroxysmal nocturnal dyspnea, edema, light headedness Gastrointestinal: negative: Nausea, Vomiting, Abdominal Pain, Diarrhea, Constipation, Melena, Hematochezia Genitourinary: negative: Dysuria, Frequency, Incontinence, Hematuria, Retention - Medications/Allergies Allergies/Adverse Reactions: Allergies Allergy/AdvReac Type Severity Reaction Status Date / Time No Known Drug Allergies Allergy Verified 08/16/18 17:14 Medications: Current Medications Acetaminophen (Tylenol) 650 mg PO Q4H PRN PRN Reason: Headache/Fever/Mild Pain (1-3) Last Admin: 11/28/18 00:26 Dose: 650 mg Aspirin (Aspirin) 325 mg PO DAILY [facility] Last Admin: 11/28/18 08:37 Dose: 325 mg Carvedilol (Coreg) 6.25 mg PO BID-[facility] Last Admin: 11/28/18 16:32 Dose: 6.25 mg Clonidine (Catapres) 0.1 mg PO Q4H PRN PRN Reason: SBP > 180 Last Admin: 11/28/18 06:07 Dose: 0.1 mg Famotidine (Pepcid) 20 mg PO BID [facility] Last Admin: 11/28/18 08:37 Dose: 20 mg Furosemide (Lasix) 40 mg SLOW IVP 0600,1400 [facility] Last Admin: 11/28/18 14:02 Dose: 40 mg Heparin Sodium (Porcine) (Heparin) 5,000 units SC TID [facility] Last Admin: 11/28/18 14:02 Dose: 5,000 units Hydralazine HCl (Apresoline) 25 mg PO TID [facility] Last Admin: 11/28/18 14:02 Dose: 25 mg Levofloxacin 500 mg/ Device 100 mls @ 100 mls/hr IVPB Q24HR [facility] Last Admin: 11/27/18 20:36 Dose: 100 mls Isosorbide Mononitrate (Imdur Er) 30 mg PO DAILY [facility] Last Admin: 11/28/18 08:37 Dose: 30 mg Labetalol HCl (Normodyne) 20 mg SLOW IVP Q4H PRN PRN Reason: SBP > 180 and HR >/= 70 Last Admin: 11/26/18 23:59 Dose: 20 mg
[2018-11-29] MEDS: Labetalol HCl 100 MG/20 ML VIAL SLOW IVP PRN (02:09)
[2018-11-29 05:05] LABS: Anion Gap 12 mmol/L (10-20); BUN (Urea Nitrogen) 42 mg/dL (8.9-20.6); Calc. Creatinine Clearance 36 mL/min (70-130); Calcium 8.4 mg/dL (7.8-10.44); Carbon Dioxide 22 mmol/L (22-29); Chloride 105 mmol/L (98-107); Estimated GFR-MDRD 22; Glucose 102 mg/dL (70-105); Potassium 4.3 mmol/L (3.5-5.1); Sodium 135 mmol/L (136-145)
[2018-11-29 05:06] LABS: Band 1 % (5-11); Hemoglobin 9.2 g/dL (14.0-18.0); Hypochromia SLIGHT = 6-15 cells (100X) (0-5/hpf); Lymphocytes 5 % (21-51); MDiff Complete? YES; Mean Corpuscular HGB CONC 33.3 g/dL (32.0-36.0); Mean Corpuscular Volume 90.1 fL (78.0-98.0); Mean Platelet Volume 6.9 fL (7.4-10.4); Monocytes 3 % (0-10); Neutrophil 91 % (42-75); Platelet Count 433 thou/uL (130-400); Platelet Morphology Comment Appears Adequate; RBC Distribution Width 12.1 % (11.5-14.5); Red Blood Cell (RBC) Count 3.06 mill/uL (4.70-6.10)
[2018-11-29] MEDS: cloNIDine 0.1 MG TAB PO PRN (05:19)
[2018-11-29] MEDS: Furosemide 40 MG/4 ML VIAL SLOW IVP SCH ×2 (05:19→14:49)
[2018-11-29] MEDS: hydrALAZINE 25 MG TAB PO SCH ×3 (08:40→21:16)
[2018-11-29] MEDS: Carvedilol 6.25 MG TAB PO SCH ×2 (08:41→17:35)
[2018-11-29] MEDS: Aspirin 325 MG TAB PO SCH (08:41)
[2018-11-29] MEDS: Isosorbide Dinitrate 20 MG TAB PO SCH ×3 (08:41→21:16)
[2018-11-29] MEDS: Heparin 5,000 UNITS/ML VIAL SC SCH ×3 (08:42→21:16)
[2018-11-29] MEDS: Famotidine 20 MG TAB PO SCH ×2 (08:42→21:15)
--- NOTE | 2018-11-29 11:51 | PRG ---
DATE OF SERVICE: SUBJECTIVE: A 38-year-old gentleman, being seen for acute kidney injury. The patient denies any nausea, vomiting, or chest pain. OBJECTIVE: CONSTITUTIONAL: The patient is awake and alert. VITAL SIGNS: Pulse 75, breathing 16, and blood pressure 136/86. GENERAL APPEARANCE AND MENTAL STATUS: Fair. HEAD/NECK: Normocephalic. Atraumatic. EYES: EOMI. No deformity. EARS: Clear. No ulcers. NOSE: Intact. No lesions. MOUTH: Clear. No discharge. THROAT: Clear. No exudate. LUNGS: Clear. No crackles. CARDIAC: S1, S2. No rub. ABDOMEN: Benign. Bowel sounds positive. GENITALIA/RECTUM: Roth absent. BACK/EXTREMITIES: Edema 0+. NEUROLOGICAL: Alert and motor intact. SKIN: LYMPHATICS: LABORATORY DATA: Labs show hemoglobin of 9.2 and Creatinine 3.1. ASSESSMENT AND PLAN: 1. Acute kidney injury with chronic kidney disease, stage 4, stable. 2. Hypertension, stable. 3. Anemia, stable. No indication for dialysis. Continue diuresis as tolerated. Job ID: [id number]
--- NOTE | 2018-11-29 17:50 | PDOC.PN ---
- Subjective Encounter Start Date: 11/29/18 Encounter Start Time: 11:00 Pt seen for followup re: CHF exacerbation. Pt reports he feels better. - Objective Resuscitation Status - Order Detail: 11/26/18 21:42 Resuscitation Status Routine Resuscitation Status: FULL: Full Resuscitation MAR Reviewed: Yes Vital Signs & Weight: Vital Signs (12 hours) Temp Pulse Pulse Pulse Resp BP BP 11/29/18 15:55 98.6 F 78 20 11/29/18 14:49 76 129/84 11/29/18 10:39 98.6 F 11/29/18 10:38 82 81 127/85 11/29/18 08:40 84 136/86 11/29/18 08:00 11/29/18 07:12 98.8 F BP BP Pulse Ox Pulse Ox Pulse Ox 11/29/18 15:55 148/94 H 92 L 11/29/18 14:49 11/29/18 10:39 11/29/18 10:38 127/83 91 L 86 L 11/29/18 08:40 11/29/18 08:00 97 11/29/18 07:12 Weight Weight 173 lb 4.8 oz Most Recent Monitor Data Heart Rate from ECG 71 NIBP 129/84 NIBP BP-Mean 99 Respiration from ECG 24 SpO2 95 I&O: 11/28/18 11/29/18 11/30/18 06:59 06:59 06:59 Intake Total 1405 1390 Output Total 2700 2250 Balance -1295 -860 Result Diagrams: 11/29/18 04:36 11/29/18 04:36 EKG Reviewed by me: Yes (Tele: NSR) Phys Exam - Physical Examination Constitutional: NAD HEENT: moist MMs, sclera anicteric, oral pharynx no lesions, 2+ tonsils Neck: no nodes, supple, full ROM JVD Bobby crackles Cardiovascular: RRR, no rub S1, S2 Gastrointestinal: soft, non-tender, no distention, positive bowel sounds Musculoskeletal: edema present Neurological: moves all 4 limbs Psychiatric: normal affect, A&O x 3 Dx/Plan (1) CHF exacerbation Code(s): I50.9 - HEART FAILURE, UNSPECIFIED Status: Acute Qualifiers: Heart failure type: systolic Qualified Code(s): I50.23 - Acute on chronic systolic (congestive) heart failure Comment: Improving, continue furosemide (2) Cardiomyopathy Code(s): I42.9 - CARDIOMYOPATHY, UNSPECIFIED Status: Chronic Comment: on beta mark. (3) CKD stage 4 secondary to hypertension Code(s): I12.9 - HYPERTENSIVE CHRONIC KIDNEY DISEASE W STG 1-4/UNSP CHR KDNY; N18.4 - CHRONIC KIDNEY DISEASE, STAGE 4 (SEVERE) Status: Chronic Comment: appreciate nephrology service input (4) Hypertensive urgency Code(s): I16.0 - HYPERTENSIVE URGENCY Status: Resolved - Plan * . Review of Systems - Review of Systems Constitutional: negative: fever, chills, sweats, weakness, malaise Respiratory: SOB with Excertion. negative: Cough, Dry, Shortness of Breath, Hemoptysis, Pleuritic Pain, Sputum, Wheezing Cardiovascular: orthopnea, edema. negative: chest pain, palpitations, paroxysmal nocturnal dyspnea, light headedness Gastrointestinal: negative: Nausea, Vomiting, Abdominal Pain, Diarrhea, Constipation, Melena, Hematochezia Genitourinary: negative: Dysuria, Frequency, Incontinence, Hematuria, Retention Skin: negative: Rash, Lesions, Kem, Bruising - Medications/Allergies Allergies/Adverse Reactions: Allergies Allergy/AdvReac Type Severity Reaction Status Date / Time No Known Drug Allergies Allergy Verified 08/16/18 17:14 Medications: Current Medications Acetaminophen (Tylenol) 650 mg PO Q4H PRN PRN Reason: Headache/Fever/Mild Pain (1-3) Last Admin: 11/28/18 00:26 Dose: 650 mg Albuterol/Ipratropium (Duoneb) 3 ml NEB [id number] PRN PRN Reason: Dyspnea/Wheezing/SOB Aspirin (Aspirin) 325 mg PO DAILY [facility] Last Admin: 11/29/18 08:41 Dose: 325 mg Carvedilol (Coreg) 12.5 mg PO BID-[facility] Last Admin: 11/29/18 17:35 Dose: 12.5 mg Clonidine (Catapres) 0.1 mg PO Q4H PRN PRN Reason: SBP > 180 Last Admin: 11/29/18 05:19 Dose: 0.1 mg Famotidine (Pepcid) 20 mg PO BID [facility] Last Admin: 11/29/18 08:42 Dose: 20 mg Furosemide (Lasix) 40 mg SLOW IVP 0600,1400 [facility] Last Admin: 11/29/18 14:49 Dose: 40 mg Heparin Sodium (Porcine) (Heparin) 5,000 units SC TID [facility] Last Admin: 11/29/18 14:49 Dose: 5,000 units Hydralazine HCl (Apresoline) 50 mg PO TID [facility] Last Admin: 11/29/18 14:49 Dose: 50 mg Isosorbide Dinitrate (Isordil) 20 mg PO TID [facility] Last Admin: 11/29/18 14:49 Dose: 20 mg Labetalol HCl (Normodyne) 20 mg SLOW IVP Q4H PRN PRN Reason: SBP > 180 and HR >/= 70 Last Admin: 11/29/18 02:09 Dose: 20 mg Levofloxacin (Levaquin) 500 mg PO 1999 [facility]
[2018-11-30 05:47] LABS: Eosinophils 10 % (0-10); Hemoglobin 8.5 g/dL (14.0-18.0); Lymphocytes 11 % (21-51); MDiff Complete? YES; Mean Corpuscular HGB CONC 32.8 g/dL (32.0-36.0); Mean Corpuscular Hemoglobin 29.7 pg (27.0-31.0); Mean Corpuscular Volume 90.6 fL (78.0-98.0); Mean Platelet Volume 7.3 fL (7.4-10.4); Monocytes 9 % (0-10); Neutrophil 70 % (42-75); Platelet Count 402 thou/uL (130-400); RBC Distribution Width 12.1 % (11.5-14.5); Red Blood Cell (RBC) Count 2.85 mill/uL (4.70-6.10); White Blood Cell (WBC) Count 9.8 thou/uL (4.8-10.8)
[2018-11-30 05:49] LABS: Anion Gap 13 mmol/L (10-20); BUN (Urea Nitrogen) 46 mg/dL (8.9-20.6); Calc. Creatinine Clearance 28 mL/min (70-130); Calcium 8.1 mg/dL (7.8-10.44); Carbon Dioxide 22 mmol/L (22-29); Chloride 106 mmol/L (98-107); Estimated GFR-MDRD 17; Glucose 90 mg/dL (70-105); Potassium 4.1 mmol/L (3.5-5.1); Sodium 137 mmol/L (136-145)
[2018-11-30] MEDS: Furosemide 40 MG/4 ML VIAL SLOW IVP SCH (05:58)
[2018-11-30] MEDS: Heparin 5,000 UNITS/ML VIAL SC SCH ×3 (08:49→21:14)
[2018-11-30] MEDS: Isosorbide Dinitrate 20 MG TAB PO SCH ×3 (08:49→21:13)
[2018-11-30] MEDS ORDERED: Carvedilol 6.25 MG TAB PO SCH (08:49)
[2018-11-30] MEDS: Famotidine 20 MG TAB PO SCH ×2 (08:49→21:13)
[2018-11-30] MEDS: hydrALAZINE 25 MG TAB PO SCH ×3 (08:50→21:13)
[2018-11-30] MEDS: Aspirin 325 MG TAB PO SCH (08:50)
[2018-11-30] MEDS: Carvedilol 6.25 MG TAB PO SCH (08:50)
[2018-11-30] MEDS ORDERED: Carvedilol 25 MG TAB PO SCH (09:00)
--- NOTE | 2018-11-30 12:39 | PRG ---
DATE OF SERVICE: 11/30/2018 SUBJECTIVE: A 38-year-old gentleman being seen for acute kidney injury. The patient denies any nausea, vomiting, or chest pain. OBJECTIVE: CONSTITUTIONAL: The patient is awake and alert. VITAL SIGNS: Pulse 78, breathing 16, and blood pressure 120/74. GENERAL APPEARANCE AND MENTAL STATUS: Fair. HEAD/NECK: Normocephalic. Atraumatic. EYES: EOMI. No deformity. EARS: Clear. No ulcers. NOSE: Intact. No lesions. MOUTH: Clear. No discharge. THROAT: Clear. No exudate. LUNGS: Clear. No crackles. CARDIAC: S1, S2. No rub. ABDOMEN: Benign. Bowel sounds positive. GENITALIA/RECTUM: Roth absent. BACK/EXTREMITIES: Edema 0+. NEUROLOGICAL: Alert and motor intact. SKIN: LYMPHATICS: LABORATORY DATA: Labs showed hemoglobin 8.5, creatinine 3.87. ASSESSMENT AND PLAN: 1. Chronic kidney disease stage 4 with acute kidney injury due to cardiorenal syndrome. 2. Hypertension, stable. 3. Anemia, stable. 4. Medications based on GFR appropriate. No indication for dialysis at this time. We will follow renal function closely. Job ID: [id number]
[2018-11-30] MEDS: Carvedilol 25 MG TAB PO SCH (16:55)
--- NOTE | 2018-11-30 17:41 | PDOC.PN ---
- Subjective Encounter Start Date: 11/30/18 Encounter Start Time: 07:20 Pt seen for followup re: CHF exacerbation. Says he feels better. - Objective Resuscitation Status - Order Detail: 11/26/18 21:42 Resuscitation Status Routine Resuscitation Status: FULL: Full Resuscitation Vital Signs & Weight: Vital Signs (12 hours) Temp Pulse Pulse Pulse Resp BP BP 11/30/18 15:45 98.2 F 77 18 11/30/18 11:38 78 77 114/71 110/63 11/30/18 11:21 78 18 11/30/18 08:50 11/30/18 07:08 97.9 F 89 24 H BP BP Pulse Ox Pulse Ox Pulse Ox 11/30/18 15:45 152/95 H 99 11/30/18 11:38 95 94 L 11/30/18 11:21 120/74 94 L 11/30/18 08:50 96 11/30/18 07:08 168/98 H 96 Weight Weight 170 lb 13.732 oz Most Recent Monitor Data Heart Rate from ECG 71 NIBP 129/84 NIBP BP-Mean 99 Respiration from ECG 24 SpO2 95 I&O: 11/29/18 11/30/18 12/01/18 06:59 06:59 06:59 Intake Total 1390 610 Output Total 2250 850 Balance -860 -240 Result Diagrams: 11/30/18 04:40 11/30/18 04:40 Phys Exam - Physical Examination Constitutional: NAD HEENT: moist MMs Neck: supple Respiratory: clear to auscultation bilateral Cardiovascular: RRR Gastrointestinal: soft Neurological: moves all 4 limbs Psychiatric: normal affect Dx/Plan (1) CHF exacerbation Code(s): I50.9 - HEART FAILURE, UNSPECIFIED Status: Acute Qualifiers: Heart failure type: systolic Qualified Code(s): I50.23 - Acute on chronic systolic (congestive) heart failure Comment: Improved. Off of furosemide (2) Cardiomyopathy Code(s): I42.9 - CARDIOMYOPATHY, UNSPECIFIED Status: Chronic Comment: on beta mark. No ACEI/ARB due to renal failure. (3) CKD stage 4 secondary to hypertension Code(s): I12.9 - HYPERTENSIVE CHRONIC KIDNEY DISEASE W STG 1-4/UNSP CHR KDNY; N18.4 - CHRONIC KIDNEY DISEASE, STAGE 4 (SEVERE) Status: Chronic Comment: creatinine 3.87 today; diuretics on hold (4) Hypertensive urgency Code(s): I16.0 - HYPERTENSIVE URGENCY Status: Resolved - Plan * . Review of Systems - Review of Systems Respiratory: SOB with Excertion. negative: Cough, Shortness of Breath, Pleuritic Pain, Wheezing Cardiovascular: negative: chest pain, palpitations, orthopnea, paroxysmal nocturnal dyspnea, edema, light headedness - Medications/Allergies Allergies/Adverse Reactions: Allergies Allergy/AdvReac Type Severity Reaction Status Date / Time No Known Drug Allergies Allergy Verified 08/16/18 17:14 Medications: Current Medications Acetaminophen (Tylenol) 650 mg PO Q4H PRN PRN Reason: Headache/Fever/Mild Pain (1-3) Last Admin: 11/28/18 00:26 Dose: 650 mg Albuterol/Ipratropium (Duoneb) 3 ml NEB [id number] PRN PRN Reason: Dyspnea/Wheezing/SOB Aspirin (Aspirin) 325 mg PO DAILY [facility] Last Admin: 11/30/18 08:50 Dose: 325 mg Carvedilol (Coreg) 25 mg PO BID-[facility] Last Admin: 11/30/18 16:55 Dose: 25 mg Clonidine (Catapres) 0.1 mg PO Q4H PRN PRN Reason: SBP > 180 Last Admin: 11/29/18 05:19 Dose: 0.1 mg Famotidine (Pepcid) 20 mg PO BID [facility] Last Admin: 11/30/18 08:49 Dose: 20 mg Heparin Sodium (Porcine) (Heparin) 5,000 units SC TID [facility] Last Admin: 11/30/18 15:45 Dose: Not Given Hydralazine HCl (Apresoline) 50 mg PO TID [facility] Last Admin: 11/30/18 15:45 Dose: 50 mg Isosorbide Dinitrate (Isordil) 20 mg PO TID [facility] Last Admin: 11/30/18 15:45 Dose: 20 mg Labetalol HCl (Normodyne) 20 mg SLOW IVP Q4H PRN PRN Reason: SBP > 180 and HR >/= 70 Last Admin: 11/29/18 02:09 Dose: 20 mg Levofloxacin (Levaquin) 500 mg PO 1999 [facility] Last Admin: 11/29/18 21:15 Dose: 500 mg Sodium Chloride (Flush - Normal Saline) 10 ml IVF Q12HR [facility] Last Admin: 11/30/18 09:06 Dose: 10 ml Sodium Chloride (Flush - Normal Saline) 10 ml IVF PRN PRN PRN Reason: Saline Flush
[2018-12-01] MEDS: cloNIDine 0.1 MG TAB PO PRN ×2 (05:23→08:58)
[2018-12-01 07:13] LABS: Anion Gap 12 mmol/L (10-20); BUN (Urea Nitrogen) 48 mg/dL (8.9-20.6); Calc. Creatinine Clearance 28 mL/min (70-130); Calcium 8.1 mg/dL (7.8-10.44); Carbon Dioxide 23 mmol/L (22-29); Chloride 107 mmol/L (98-107); Estimated GFR-MDRD 18; Glucose 98 mg/dL (70-105); Sodium 138 mmol/L (136-145)
[2018-12-01] MEDS: Carvedilol 25 MG TAB PO SCH ×2 (08:57→16:16)
[2018-12-01] MEDS: hydrALAZINE 25 MG TAB PO SCH ×3 (08:57→20:32)
[2018-12-01] MEDS: Aspirin 325 MG TAB PO SCH (08:57)
[2018-12-01] MEDS: Isosorbide Dinitrate 20 MG TAB PO SCH ×3 (08:58→20:32)
[2018-12-01] MEDS: Famotidine 20 MG TAB PO SCH ×2 (08:58→20:32)
[2018-12-01] MEDS: Heparin 5,000 UNITS/ML VIAL SC SCH ×3 (09:01→20:32)
[2018-12-01 09:02] LABS: Band 3 % (5-11); Eosinophils 5 % (0-10); Hemoglobin 8.4 g/dL (14.0-18.0); Lymphocytes 16 % (21-51); MDiff Complete? YES; Mean Corpuscular HGB CONC 33.1 g/dL (32.0-36.0); Mean Corpuscular Hemoglobin 29.2 pg (27.0-31.0); Mean Corpuscular Volume 88.4 fL (78.0-98.0); Mean Platelet Volume 7.6 fL (7.4-10.4); Monocytes 6 % (0-10); Neutrophil 70 % (42-75); Platelet Count 417 thou/uL (130-400); RBC Distribution Width 11.9 % (11.5-14.5); Red Blood Cell (RBC) Count 2.88 mill/uL (4.70-6.10); White Blood Cell (WBC) Count 10.6 thou/uL (4.8-10.8)
--- NOTE | 2018-12-01 11:19 | PDOC.PN ---
- Subjective Encounter Start Date: 12/01/18 Encounter Start Time: 07:20 Pt seen for followup re: CHF exacerbation. Feels better. - Objective Resuscitation Status - Order Detail: 11/26/18 21:42 Resuscitation Status Routine Resuscitation Status: FULL: Full Resuscitation MAR Reviewed: Yes Vital Signs & Weight: Vital Signs (12 hours) Temp Pulse Resp BP BP Pulse Ox 12/01/18 08:57 79 174/103 H 12/01/18 08:55 97.8 F 16 99 12/01/18 04:00 98.3 F 94 17 174/110 H 92 L 11/30/18 23:54 98.9 F 89 20 150/89 H 93 L Weight Weight 168 lb Most Recent Monitor Data Heart Rate from ECG 71 NIBP 129/84 NIBP BP-Mean 99 Respiration from ECG 24 SpO2 95 I&O: 11/30/18 12/01/18 12/02/18 06:59 06:59 06:59 Intake Total 610 1080 Output Total 850 950 Balance -240 130 Result Diagrams: 12/01/18 05:25 12/01/18 05:25 EKG Reviewed by me: Yes (Tele: NSR) Phys Exam - Physical Examination Constitutional: NAD HEENT: moist MMs Neck: supple Respiratory: clear to auscultation bilateral Cardiovascular: RRR Gastrointestinal: positive bowel sounds Neurological: moves all 4 limbs Psychiatric: normal affect Dx/Plan (1) CHF exacerbation Code(s): I50.9 - HEART FAILURE, UNSPECIFIED Status: Acute Qualifiers: Heart failure type: systolic Qualified Code(s): I50.23 - Acute on chronic systolic (congestive) heart failure Comment: Improved. (2) Cardiomyopathy Code(s): I42.9 - CARDIOMYOPATHY, UNSPECIFIED Status: Chronic Comment: on beta mark. (3) CKD stage 4 secondary to hypertension Code(s): I12.9 - HYPERTENSIVE CHRONIC KIDNEY DISEASE W STG 1-4/UNSP CHR KDNY; N18.4 - CHRONIC KIDNEY DISEASE, STAGE 4 (SEVERE) Status: Chronic Comment: creatinine 3.77 today, improving (4) Hypertensive urgency Code(s): I16.0 - HYPERTENSIVE URGENCY Status: Resolved - Plan * . Review of Systems - Review of Systems Cardiovascular: negative: chest pain, palpitations, orthopnea, paroxysmal nocturnal dyspnea, edema, light headedness Gastrointestinal: negative: Nausea, Vomiting, Abdominal Pain, Diarrhea, Constipation, Melena, Hematochezia - Medications/Allergies Allergies/Adverse Reactions: Allergies Allergy/AdvReac Type Severity Reaction Status Date / Time No Known Drug Allergies Allergy Verified 08/16/18 17:14 Medications: Current Medications Acetaminophen (Tylenol) 650 mg PO Q4H PRN PRN Reason: Headache/Fever/Mild Pain (1-3) Last Admin: 11/28/18 00:26 Dose: 650 mg Albuterol/Ipratropium (Duoneb) 3 ml NEB [id number] PRN PRN Reason: Dyspnea/Wheezing/SOB Aspirin (Aspirin) 325 mg PO DAILY [facility] Last Admin: 12/01/18 08:57 Dose: 325 mg Carvedilol (Coreg) 25 mg PO BID-[facility] Last Admin: 12/01/18 08:57 Dose: 25 mg Clonidine (Catapres) 0.1 mg PO Q4H PRN PRN Reason: SBP > 180 Last Admin: 12/01/18 08:58 Dose: 0.1 mg Famotidine (Pepcid) 20 mg PO BID [facility] Last Admin: 12/01/18 08:58 Dose: 20 mg Heparin Sodium (Porcine) (Heparin) 5,000 units SC TID [facility] Last Admin: 12/01/18 09:01 Dose: 5,000 units Hydralazine HCl (Apresoline) 50 mg PO TID [facility] Last Admin: 12/01/18 08:57 Dose: 50 mg Isosorbide Dinitrate (Isordil) 20 mg PO TID [facility] Last Admin: 12/01/18 08:58 Dose: 20 mg Labetalol HCl (Normodyne) 20 mg SLOW IVP Q4H PRN PRN Reason: SBP > 180 and HR >/= 70 Last Admin: 11/29/18 02:09 Dose: 20 mg Levofloxacin (Levaquin) 500 mg PO 1999 [facility] Last Admin: 11/30/18 21:13 Dose: 500 mg Sodium Chloride (Flush - Normal Saline) 10 ml IVF Q12HR [facility] Last Admin: 12/01/18 08:58 Dose: 10 ml Sodium Chloride (Flush - Normal Saline) 10 ml IVF PRN PRN PRN Reason: Saline Flush
--- NOTE | 2018-12-01 11:49 | PRG ---
DATE OF SERVICE: 12/01/2018 SUBJECTIVE: A 38-year-old gentleman being seen for acute kidney injury. The patient denies any nausea, vomiting, or chest pain. OBJECTIVE: See above. CONSTITUTIONAL: Awake, alert, in no acute distress. VITAL SIGNS: Afebrile. Pulse 75, breathing 16, and blood pressure . GENERAL APPEARANCE AND MENTAL STATUS: Fair. HEAD/NECK: Normocephalic. Atraumatic. EYES: EOMI. No deformity. EARS: Clear. No ulcers. NOSE: Intact. No lesions. MOUTH: Clear. No discharge. THROAT: Clear. No exudate. LUNGS: Clear. No crackles. CARDIAC: S1, S2. No rub. ABDOMEN: Benign. Bowel sounds positive. GENITALIA/RECTUM: Roth absent. BACK/EXTREMITIES: Edema 0+. NEUROLOGICAL: Alert and motor intact. SKIN: LYMPHATICS: LABORATORY DATA: Labs reviewed. ASSESSMENT AND PLAN: 1. Stage 4 chronic kidney disease, stable. 2. Acute kidney injury, stable. 3. Hypertension, stable. 4. Anemia, stable. No indication for dialysis. 5. Edema is much better. 6. Congestive heart failure, stable. Job ID: [id number] [facility]
--- NOTE | 2018-12-01 16:05 | PDOC.CTH ---
Cardiology Progress Note - Subjective Feeling better. Breathing at baseline. - Objective Vital Signs Temp Pulse Resp BP BP Pulse Ox 12/01/18 11:38 98.7 F 80 18 109/58 L 98 12/01/18 08:57 79 174/103 H 12/01/18 08:55 97.8 F 16 99 Weight 168 lb 11/30/18 12/01/18 12/02/18 06:59 06:59 06:59 Intake Total 610 1080 Output Total 850 950 Balance -240 130 - Physical Examination General/Neuro: alert & oriented x3, NAD Neck: no JVD present Lungs: CTA, unlabored respirations Heart: RRR Abdomen: NT/ND Extremities: other: (no edema) - Telemetry Telemetry Rhythm: NSR - Labs Result Diagrams: 12/01/18 05:25 12/01/18 05:25 Troponin/CKMB CK-MB (CK-2) 6.9 ng/mL (0-6.6) H* 11/26/18 18:56 Troponin I 0.051 ng/mL (< 0.028) H 11/27/18 01:15 - Assessment/Plan 1. new onset dilated CM EF at 30-35% 2. CKD stage 4 3. Alcohool abuse 4. Tobacco abuse PLAN: - Medical therapy as cannot do [facility] due to renal function - [facility] before discharge. . - May discharge home when lifevest set up done. - Follow up with Dr. Bey in 1-2 months.
--- NOTE | 2018-12-01 21:00 | EKG ---
Test Reason : Blood Pressure : / mmHG Vent. Rate : 111 BPM Atrial Rate : 111 BPM P-R Int : 136 ms QRS Dur : 096 ms QT Int : 342 ms P-R-T Axes : 039 025 055 degrees QTc Int : 465 ms Sinus tachycardia Possible Left atrial enlargement Borderline ECG Similar to 16-AUG-2018 Confirmed by JESSENIA HAYNES DO ([id number]), editor producer GINA LANDON ([id number]) on 12/01/2018 9:00:08 PM Referred By: Confirmed By:JESSENIA HAYNES DO
[2018-12-02] MEDS: cloNIDine 0.1 MG TAB PO PRN (04:10)
[2018-12-02 09:11] LABS: #Basophils 0.1 thou/uL (0.0-0.2); #Eosinphils 0.8 thou/uL (0.0-0.7); #Lymphocytes 1.1 thou/uL (1.20-3.40); #Monocytes 0.9 thou/uL (0.11-0.59); #Neutrophils 7.6 thou/uL (1.40-6.50); %Basophils 0.5 % (0.0-1.0); %Eosinophils 7.6 % (0.0-10.0); %Lymphocytes 10.7 % (21.0-51.0); %Monocytes 8.7 % (0.0-10.0); %Neutrophils 72.5 % (42.0-75.0); Hemoglobin 8.5 g/dL (14.0-18.0); Mean Corpuscular HGB CONC 33.2 g/dL (32.0-36.0); Mean Corpuscular Hemoglobin 29.5 pg (27.0-31.0); Mean Corpuscular Volume 88.8 fL (78.0-98.0); Mean Platelet Volume 6.9 fL (7.4-10.4); Platelet Count 372 thou/uL (130-400); RBC Distribution Width 12.1 % (11.5-14.5); Red Blood Cell (RBC) Count 2.87 mill/uL (4.70-6.10); White Blood Cell (WBC) Count 10.4 thou/uL (4.8-10.8)
[2018-12-02 09:25] LABS: Anion Gap 12 mmol/L (10-20); BUN (Urea Nitrogen) 51 mg/dL (8.9-20.6); Calc. Creatinine Clearance 29 mL/min (70-130); Calcium 8.3 mg/dL (7.8-10.44); Carbon Dioxide 24 mmol/L (22-29); Chloride 108 mmol/L (98-107); Estimated GFR-MDRD 18; Glucose 115 mg/dL (70-105); Sodium 140 mmol/L (136-145)
[2018-12-02] MEDS: hydrALAZINE 25 MG TAB PO SCH ×3 (09:41→21:05)
[2018-12-02] MEDS: Carvedilol 25 MG TAB PO SCH ×2 (09:42→17:31)
[2018-12-02] MEDS: Aspirin 325 MG TAB PO SCH (09:43)
[2018-12-02] MEDS: Famotidine 20 MG TAB PO SCH ×2 (09:43→21:04)
[2018-12-02] MEDS: Isosorbide Dinitrate 20 MG TAB PO SCH ×3 (09:44→21:07)
[2018-12-02] MEDS: Heparin 5,000 UNITS/ML VIAL SC SCH ×3 (09:44→21:05)
--- NOTE | 2018-12-02 10:59 | PRG ---
DATE OF SERVICE: 12/02/2018 SUBJECTIVE: A 38-year-old gentleman being seen for acute kidney injury. The patient denies any nausea, vomiting, or chest pain. OBJECTIVE: CONSTITUTIONAL: The patient is awake and alert. VITAL SIGNS: Pulse 86, breathing 16, blood pressure 176/109. GENERAL APPEARANCE AND MENTAL STATUS: Fair. HEAD/NECK: Normocephalic. Atraumatic. EYES: EOMI. No deformity. EARS: Clear. No ulcers. NOSE: Intact. No lesions. MOUTH: Clear. No discharge. THROAT: Clear. No exudate. LUNGS: Clear. No crackles. CARDIAC: S1, S2. No rub. ABDOMEN: Benign. Bowel sounds positive. GENITALIA/RECTUM: Roth absent. BACK/EXTREMITIES: Edema 0+. NEUROLOGICAL: Alert and motor intact. SKIN: LYMPHATICS: LABORATORY DATA: Labs show hemoglobin 8.5, creatinine is 3.6. ASSESSMENT AND PLAN: 1. Chronic kidney disease, stage 4, stable. 2. Hypertension, stable. 3. Anemia, stable. 4. Hyperkalemia, stable. For hypertension, I would recommend increasing the hydralazine to 100 t.i.d. Job ID: [id number]
--- NOTE | 2018-12-02 13:03 | PDOC.PN ---
- Subjective Encounter Start Date: 12/02/18 Encounter Start Time: 07:40 P_t seen for followup re: CHF exacerbation. Feels well, no complaints. - Objective Resuscitation Status - Order Detail: 11/26/18 21:42 Resuscitation Status Routine Resuscitation Status: FULL: Full Resuscitation Vital Signs & Weight: Vital Signs (12 hours) Temp Pulse Resp BP BP BP Pulse Ox 12/02/18 09:41 86 176/109 H 12/02/18 08:00 97.5 F L 86 22 H 176/109 H 95 12/02/18 04:10 179/105 H 12/02/18 04:00 98.4 F 88 20 179/108 H 99 Weight Weight 169 lb Most Recent Monitor Data Heart Rate from ECG 71 NIBP 129/84 NIBP BP-Mean 99 Respiration from ECG 24 SpO2 95 I&O: 12/01/18 12/02/18 12/03/18 06:59 06:59 06:59 Intake Total 1080 667 Output Total 950 780 Balance 130 -113 Result Diagrams: 12/02/18 08:56 12/02/18 08:56 Phys Exam - Physical Examination Constitutional: NAD HEENT: moist MMs Neck: supple Respiratory: clear to auscultation bilateral Cardiovascular: RRR Gastrointestinal: soft Neurological: moves all 4 limbs Psychiatric: normal affect Dx/Plan (1) CHF exacerbation Code(s): I50.9 - HEART FAILURE, UNSPECIFIED Status: Acute Qualifiers: Heart failure type: systolic Qualified Code(s): I50.23 - Acute on chronic systolic (congestive) heart failure Comment: Improved. (2) Cardiomyopathy Code(s): I42.9 - CARDIOMYOPATHY, UNSPECIFIED Status: Chronic Comment: continue beta mark. (3) CKD stage 4 secondary to hypertension Code(s): I12.9 - HYPERTENSIVE CHRONIC KIDNEY DISEASE W STG 1-4/UNSP CHR KDNY; N18.4 - CHRONIC KIDNEY DISEASE, STAGE 4 (SEVERE) Status: Chronic Comment: creatinine 3.68 today, improving (4) Hypertensive urgency Code(s): I16.0 - HYPERTENSIVE URGENCY Status: Resolved - Plan * . Review of Systems - Review of Systems Respiratory: negative: Cough, Shortness of Breath, SOB with Excertion, Pleuritic Pain, Wheezing Cardiovascular: negative: chest pain, palpitations, orthopnea, paroxysmal nocturnal dyspnea, edema, light headedness - Medications/Allergies Allergies/Adverse Reactions: Allergies Allergy/AdvReac Type Severity Reaction Status Date / Time No Known Drug Allergies Allergy Verified 08/16/18 17:14 Medications: Current Medications Acetaminophen (Tylenol) 650 mg PO Q4H PRN PRN Reason: Headache/Fever/Mild Pain (1-3) Last Admin: 11/28/18 00:26 Dose: 650 mg Albuterol/Ipratropium (Duoneb) 3 ml NEB [id number] PRN PRN Reason: Dyspnea/Wheezing/SOB Aspirin (Aspirin) 325 mg PO DAILY [facility] Last Admin: 12/02/18 09:43 Dose: 325 mg Carvedilol (Coreg) 25 mg PO BID-[facility] Last Admin: 12/02/18 09:42 Dose: 25 mg Clonidine (Catapres) 0.1 mg PO Q4H PRN PRN Reason: SBP > 180 Last Admin: 12/02/18 04:10 Dose: 0.1 mg Famotidine (Pepcid) 20 mg PO BID [facility] Last Admin: 12/02/18 09:43 Dose: 20 mg Heparin Sodium (Porcine) (Heparin) 5,000 units SC TID [facility] Last Admin: 12/02/18 09:44 Dose: 5,000 units Hydralazine HCl (Apresoline) 50 mg PO TID [facility] Last Admin: 12/02/18 09:41 Dose: 50 mg Isosorbide Dinitrate (Isordil) 20 mg PO TID [facility] Last Admin: 12/02/18 09:44 Dose: 20 mg Labetalol HCl (Normodyne) 20 mg SLOW IVP Q4H PRN PRN Reason: SBP > 180 and HR >/= 70 Last Admin: 11/29/18 02:09 Dose: 20 mg Levofloxacin (Levaquin) 500 mg PO 1999 [facility] Last Admin: 12/01/18 20:32 Dose: 500 mg Sodium Chloride (Flush - Normal Saline) 10 ml IVF Q12HR [facility] Last Admin: 12/02/18 09:44 Dose: 10 ml Sodium Chloride (Flush - Normal Saline) 10 ml IVF PRN PRN PRN Reason: Saline Flush
[2018-12-03] MEDS: cloNIDine 0.1 MG TAB PO PRN (05:04)
[2018-12-03 06:14] LABS: #Basophils 0.1 thou/uL (0.0-0.2); #Eosinphils 0.7 thou/uL (0.0-0.7); #Lymphocytes 1.3 thou/uL (1.20-3.40); #Neutrophils 7.8 thou/uL (1.40-6.50); %Basophils 0.6 % (0.0-1.0); %Eosinophils 6.4 % (0.0-10.0); %Lymphocytes 11.7 % (21.0-51.0); %Monocytes 9.5 % (0.0-10.0); %Neutrophils 71.8 % (42.0-75.0); Hemoglobin 8.3 g/dL (14.0-18.0); Mean Corpuscular HGB CONC 32.7 g/dL (32.0-36.0); Mean Corpuscular Volume 88.7 fL (78.0-98.0); Mean Platelet Volume 7.1 fL (7.4-10.4); Platelet Count 387 thou/uL (130-400); RBC Distribution Width 12.2 % (11.5-14.5); Red Blood Cell (RBC) Count 2.86 mill/uL (4.70-6.10); White Blood Cell (WBC) Count 10.9 thou/uL (4.8-10.8)
[2018-12-03 06:36] LABS: Anion Gap 11 mmol/L (10-20); BUN (Urea Nitrogen) 54 mg/dL (8.9-20.6); Calc. Creatinine Clearance 30 mL/min (70-130); Calcium 8.2 mg/dL (7.8-10.44); Carbon Dioxide 24 mmol/L (22-29); Chloride 109 mmol/L (98-107); Estimated GFR-MDRD 18; Glucose 113 mg/dL (70-105); Sodium 140 mmol/L (136-145)
[2018-12-03] MEDS: Famotidine 20 MG TAB PO SCH (08:34)
[2018-12-03] MEDS: Heparin 5,000 UNITS/ML VIAL SC SCH ×2 (08:34→15:30)
[2018-12-03] MEDS: Carvedilol 25 MG TAB PO SCH (08:34)
[2018-12-03] MEDS: Aspirin 325 MG TAB PO SCH (08:34)
[2018-12-03] MEDS: Isosorbide Dinitrate 20 MG TAB PO SCH ×2 (08:35→15:09)
[2018-12-03] MEDS: hydrALAZINE 25 MG TAB PO SCH ×2 (08:35→15:09)
[2018-12-03 12:18] VITALS: TEMP 98.3
[2018-12-03 15:10] VITALS: BP 131/91
[2018-12-03] MEDS ORDERED: Carvedilol 25 MG TAB PO SCH (17:00)
--- NOTE | 2018-12-03 17:32 | PRG ---
DATE OF SERVICE: 12/03/2018 SUBJECTIVE: Patient was seen and examined at bedside and overnight events noted. Patient denies any shortness of breath or chest pain or palpitation. No history of nausea or vomiting or diarrhea or fever or chills or cramps. OBJECTIVE: GENERAL: This is a well-built male, in no apparent distress. VITAL SIGNS: Temperature 98.3, pulse 67, respiratory rate 18, blood pressure 128/79. HEENT: Atraumatic, normocephalic. Oral mucosa is moist NECK: Supple. CARDIOVASCULAR: S1, S2 heard. Rate and rhythm regular. RESPIRATORY: Clear to auscultation. GASTROINTESTINAL: Abdomen is soft. MUSCULOSKELETAL: No tenderness. No edema. DERMATOLOGIC: No skin rash. NEUROLOGIC: Alert and awake and oriented X3. No focal neurologic deficits. Moving all the extremities. PSYCHIATRIC: Mood and affect normal. LABORATORY DATA: Potassium is 4.0, BUN is 54, creatinine is ASSESSMENT AND PLAN: 1. Chronic kidney disease, stage 4, stable. 2. Hypertension. 3. Cardiorenal syndrome. 4. . 5. Anemia. No acute indication for dialysis. Follow up as an outpatient. Job ID: [id number]
--- NOTE | 2018-12-04 03:52 | DIS ---
DATE OF ADMISSION: 11/26/2018 DATE OF DISCHARGE: 12/03/2018 PRIMARY CARE PROVIDER: Mimi Schneider NP DISCHARGE DIAGNOSES: 1. Acute on chronic systolic congestive heart failure exacerbation, [place] [employer] stage III, ACC/AHA class C. 2. Cardiomyopathy. 3. Chronic kidney disease stage 4. 4. Hypertensive urgency. CONDITION OF PATIENT ON THE DAY OF DISCHARGE: Stable. I assessed Mr. Lucas on the day of discharge. He denies any chest pain or shortness of breath. Vital signs are stable. S1 and S2 are heard, regular. Lungs are clear to auscultation bilaterally. DISCHARGE MEDICATIONS: 1. Aspirin 325 mg daily. 2. Coreg 37.5 mg 2 times a day. 3. Hydralazine 50 mg 3 times a day. 4. Isosorbide dinitrate 20 mg 3 times a day. CONSULTATIONS DURING THIS HOSPITALIZATION: 1. Cardiology, Dr. Bey. 2. Nephrology, Dr. Regalado. HOSPITAL COURSE: Mr. Lucas is a pleasant 38-year-old gentleman who was admitted to [facility] on November 26, 2018, for controlled hypertension as well as congestive heart failure exacerbation and acute on chronic renal failure. Please refer to Dr. Olivares's history and physical note dated November 26, 2018, for further details. Chest x-ray was suggestive of pneumonia. However, the patient did not have any cough and was afebrile. He did have leukocytosis and received antibiotics during this hospitalization. He was seen by Nephrology and Cardiology services. Renal ultrasound on November 26, did not show any evidence of urinary tract obstruction. He has a small right renal cyst. 2D echocardiogram on November 27, showed left ventricular ejection fraction of 30% to 35%, mildly dilated left atrium, mild mitral regurgitation, mild tricuspid regurgitation, and normal pulmonary artery pressure. He was started on diuretics with improvement of his respiratory symptoms. He had worsening of his renal function with a creatinine that went from 3.01 on November 26 to 3.87 on November 30. It subsequently trended down to 3.68 after holding the diuretics. He continued to improve clinically. He was ambulating in the hallways. He is being discharged home in a stable condition. At the time of this dictation, Mr. Lucas is awaiting for LifeVest placement. Many thanks for allowing me to participate in your patient's care. Please feel free to contact me with any questions or concerns. DISCHARGE DESTINATION: Home. TIME SPENT: Total amount of time spent coordinating this discharge: 32 minutes. Job ID: [id number]
== END 2018-12-03 15:42 | disposition home or self-care (01) | DRG 291 ==
LOC: ERS 18:30 → ERHOLD 21:14 → IMCU/EMU 23:22 → 2NO 11-29 15:33
PROVIDERS: ADMIT Emergency Medicine; ATTEND Emergency Medicine
DX: I13.0 Hypertensive heart and chronic kidney disease with heart failure and stage 1 through stage 4 chronic kidney disease, or unspecified chronic kidney disease (principal); I50.23 Acute on chronic systolic (congestive) heart failure; J18.9 Pneumonia, unspecified organism; N18.4 Chronic kidney disease, stage 4 (severe); N17.9 Acute kidney failure, unspecified; E87.5 Hyperkalemia; I42.9 Cardiomyopathy, unspecified; I16.0 Hypertensive urgency; D64.9 Anemia, unspecified; F10.11 Alcohol abuse, in remission; N28.1 Cyst of kidney, acquired; I08.1 Rheumatic disorders of both mitral and tricuspid valves; Z87.891 Personal history of nicotine dependence
CPT/HCPCS: 36415; 71045; 76770; 80048; 80053; 81003; 81015; 82436; 82553; 82570; 83605; 83880; 84145; 84300; 84484; 85007; 85025; 85027; 87040; 87086; 93005; 93306; 93798; 96361; 96365; 96366; 96367; 96375; 96376; J0360; J1644; J1940; J1956; J2543; J3370; J7050

== ENCOUNTER 2019-06-07 12:13 | Inpatient (IN) | payer OTHER, SELFPAY ==
[2019-06-07 12:40] LABS: #Basophils 0.1 thou/uL (0.0-0.2); #Eosinphils 0.3 thou/uL (0.0-0.7); #Lymphocytes 1.8 thou/uL (1.20-3.40); #Monocytes 0.7 thou/uL (0.11-0.59); #Neutrophils 4.9 thou/uL (1.40-6.50); %Eosinophils 4.4 % (0.0-10.0); %Lymphocytes 22.7 % (21.0-51.0); %Monocytes 9.5 % (0.0-10.0); %Neutrophils 62.4 % (42.0-75.0); Hemoglobin 10.5 g/dL (14.0-18.0); Mean Corpuscular HGB CONC 34.4 g/dL (32.0-36.0); Mean Corpuscular Hemoglobin 31.5 pg (27.0-31.0); Mean Corpuscular Volume 91.7 fL (78.0-98.0); Platelet Count 169 thou/uL (130-400); RBC Distribution Width 13.2 % (11.5-14.5); Red Blood Cell (RBC) Count 3.34 mill/uL (4.70-6.10); White Blood Cell (WBC) Count 7.8 thou/uL (4.8-10.8)
[2019-06-07 13:24] LABS: ALT (SGPT) 24 U/L (8-55); AST (SGOT) 17 U/L (5-34); Albumin 2.7 g/dL (3.5-5.0); Alkaline Phosphatase 63 U/L (40-110); Anion Gap 18 mmol/L (10-20); BUN (Urea Nitrogen) 70 mg/dL (8.9-20.6); Bilirubin, Total 0.3 mg/dL (0.2-1.2); Calc. Creatinine Clearance 0 mL/min (70-130); Calcium 6.9 mg/dL (7.8-10.44); Carbon Dioxide 18 mmol/L (22-29); Chloride 111 mmol/L (98-107); Estimated GFR-MDRD 7; Globulin 2.5 g/dL (2.4-3.5); Glucose 115 mg/dL (70-105); Protein, Total 5.2 g/dL (6.0-8.3); Sodium 143 mmol/L (136-145)
[2019-06-07 13:31] LABS: CKMB 4.2 ng/mL (0-6.6)
[2019-06-07] MEDS ORDERED: Nitroglycerin 2% Ointment 1 INCH/1 GM Packet ONE (13:35)
--- NOTE | 2019-06-07 13:42 | RAD ---
SINGLE VIEW CHEST: Date: 06/07/19 COMPARISON: 11/26/18. HISTORY: Cough. FINDINGS: Single view of the chest shows a normal sized cardiomediastinal silhouette. There is no evidence of c onsolidation, mass, or pleural effusion. The bones are unremarkable. IMPRESSION: No evidence of acute cardiopulmonary disease. POS: CET
[2019-06-07] MEDS ORDERED: Heparin 10,000 UNITS/1 ML VIAL ONE (15:00)
--- NOTE | 2019-06-07 16:30 | OP ---
DATE OF PROCEDURE: 06/07/2019 PREOPERATIVE DIAGNOSIS: Acute renal failure. POSTOPERATIVE DIAGNOSIS: Acute renal failure. PROCEDURE PERFORMED: Placement of a triple-lumen right femoral Trialysis catheter. INDICATIONS FOR PROCEDURE: A 38-year-old man, presented with worsening acute kidney disease. I was asked to place a temporary dialysis access to facilitate hemodialysis. DESCRIPTION OF PROCEDURE: Informed consent was obtained from the patient, who was placed in supine position. The right groin was sterilely prepped and draped in usual fashion. Right femoral artery was palpated at the groin and skin medial to the palpated vessel was anesthetized with 1% lidocaine. The right femoral vein was cannulated with an 18-gauge introducer needle returning dark venous blood. Guidewire was passed through the needle and advanced into the right femoral vein without resistance. Needle was withdrawn over the guidewire. A stab incision was made adjacent to the guidewire using 11 scalpel. Dilator was passed over the guidewire dilating the subcutaneous tissues. Dilator was removed and a triple-lumen Trialysis catheter was advanced over the guidewire and placed in the right femoral vein without resistance and advanced to the hub. The guidewire was removed. Dark venous blood was aspirated from all three ports, which were individually flushed first with saline and then with heparin. Catheter was secured to right groin using 3-0 nylon suture at two points. Sterile dressings were applied. The patient tolerated the procedure without any apparent complication and remains hemodynamically stable following completion of procedure. Job ID: [id number]
[2019-06-07 16:56] VITALS: BMI 26.9
[2019-06-07] MEDS ORDERED: Senokot S 8.6-50 MG TAB PO PRN (17:06)
[2019-06-07] MEDS ORDERED: hydrALAZINE 25 MG TAB PO SCH (17:45)
[2019-06-07] MEDS: Acetaminophen 325 MG TAB PO PRN (17:47)
[2019-06-07] MEDS ORDERED: Acetaminophen ER (8hr) 650 MG TAB PO PRN (17:51)
[2019-06-07] MEDS ORDERED: hydrALAZINE 20 MG/ML VIAL SLOW IVP PRN (18:29)
[2019-06-07] MEDS: cloNIDine 0.2 MG TAB PO SCH (18:33)
--- NOTE | 2019-06-07 18:39 | HP ---
[facility] [place] DESIZING MACHINE OFFBEARER: Dr. Bey. OFFICE COPY SELECTOR: Dr. Regalado. CHIEF COMPLAINT: Abnormal labs, feeling unwell for the last week. HISTORY OF PRESENT ILLNESS: Mr. Lucas is a 38-year-old man, who has not been feeling well for the last couple of weeks. Reports that Dr. Regalado had ordered some lab work done this week in preparation for a visit he had next week. called the office today. Dr. Regalado reviewed his labs and told him that he needed to come to the emergency room. Reports that his creatinine was up more than normal, that it has been hovering around 4; today in the emergency room, it was at 8.72. The patient reports was on Tamiflu last week. The patient feels like he has some sort of viral illness over the last week and has not felt well. Reports decreased appetite, increased abdomen bloating. Reports that he is on Lasix and he has been urinating as normal, but he just does not feel any better. Does report some shortness of breath, some dyspnea on exertion and reports a cough. Denies any fever or chills. Dr. Regalado was consulted from the emergency room and stated that he would probably need dialysis and asked for either a temporary or a permanent dialysis catheter placed. Dr. Morin was consulted so that she would get to it on Monday or Monday and that if he needed emergent dialysis, then a temporary catheter needed to be placed over the weekend, and Dr. Wise was contacted from the emergency room and he put in a right femoral catheter in preparation for dialysis. He will be admitted to the hospital for further management. REVIEW OF SYSTEMS: Abnormal labs, cough, decreased appetite, and abdomen distention. PAST MEDICAL HISTORY: Congestive heart failure, hypertension. Has had pneumonia in the past, end-stage renal disease. PAST SURGICAL HISTORY: None. PSYCHIATRIC HISTORY: None. SOCIAL HISTORY: Denies any drug or smoking. He is a former smoker, quit in September 2018. Alcohol, did drink alcohol, but he did quit in November of 2017. Lives at home. KNOWN ALLERGIES: None. HOME MEDICATIONS: 1. Hydralazine 50 mg p.o. t.i.d. 2. Clonidine 0.1 mg b.i.d. 3. Coreg 25 mg p.o. b.i.d. 4. Isosorbide 60 mg p.o. b.i.d. 5. Furosemide 40 mg p.o. twice a day. 6. Lipitor 10 mg p.o. once a day. 7. Aspirin 325 mg once a day. These medications will still need to be reconciled. PHYSICAL EXAMINATION: VITAL SIGNS: Blood pressure 178/118, pulse is 69, respirations are 14, temperature is 98, and pO2 sats are 99% on room air. CONSTITUTIONAL: The patient appears nontoxic. He is alert and oriented to person, place, and time, is in no apparent distress. HEENT: Head is atraumatic and normocephalic. Eyes, eyelids are normal to inspection. Pupils are equally round and reactive to light. ENT, mouth exam is normal. Mucous membranes are moist. NECK: Normal range of motion. Trachea is midline. RESPIRATORY/CHEST: Breath sounds with faint crackles bilaterally in the bases. Chest expansion is equal. CARDIOVASCULAR: Regular heart rate and rhythm. Heart sounds are normal. ABDOMEN: Bowel sounds are heard. There is mild distention present. No peritoneal signs. BACK: Normal range of motion. No CVA tenderness. EXTREMITIES: Upper extremity, normal inspection, normal range of motion. Radial pulses normal. Lower extremity, normal range of motion. Motor strength is normal. Pedal pulses are normal. There is no edema noted. NEUROLOGIC: The patient is oriented to person, place, and time. Speech is normal. No focal sensory or motor deficits. SKIN: Warm and dry. Normal in color. PSYCH: Oriented to person, place, and time. Normal affect. LABORATORY DATA: EKG in the emergency room shows normal sinus rhythm, beats per minute 73, ST abnormality, prolonged QT. Worsening kidney function. Family reports that Dr. Regalado has been talking to them that dialysis may be needed at some point today. Creatinine is 8 yesterday, 8.72 today. The last value we had was from April 01, 2019, at that time, the creatinine was 5.72. GFR in March was 11 to 12; today it is 7. Troponin here is 0.035. BNP 670, calcium 6.9. PLAN AND ASSESSMENT: 1. End-stage renal disease with increased creatinine, decreased GFR. Dr. Regalado has been consulted. Dr. Wise has placed a temporary dialysis catheter. The patient will be admitted to the floor. We will trend troponins. Dr. Regalado has been consulted. 2. Hypertension. We will restart home medications. 3. Hyperlipidemia. Restart home medications. 4. History of congestive heart failure. Reports that his EF has been as low as 20%, but it is rebounded and the last time it was checked, it was closer to 50%. Last echo here was in November 2018 and EF at that time was 30% to 35%. The patient reports that it has been checked by Dr. Bey since then and has improved and he came off the LifeVest. Restart home medications. 5. Gastrointestinal and deep venous thrombosis prophylaxis has been started. 6. Hospital course dependent on clinical findings. Job ID: [id number]
[2019-06-07] MEDS: hydrALAZINE 25 MG TAB PO SCH (22:27)
[2019-06-07] MEDS: Famotidine 20 MG TAB PO SCH (22:27)
[2019-06-07] MEDS: Furosemide 40 MG TAB PO SCH (22:27)
[2019-06-07] MEDS: Isosorbide Dinitrate 20 MG TAB PO SCH (22:27)
[2019-06-07 22:47] LABS: HBSAB Concentration 0.98 mIU/mL; HBSAg Index 0.25 S/CO (0-0.99); Hep B Surf AB Non-Reactive (NonReactive); Hep B Surf Ag Non-Reactive S/CO (NonReactive)
[2019-06-07] MEDS ORDERED: Tuberculin PPD 0.1 ML VIAL I-DERMAL SCH (23:00)
--- NOTE | 2019-06-08 00:53 | CON ---
DATE OF CONSULTATION: 06/07/2019 CONSULTING PHYSICIAN: MENDEZ Grigsby REASON FOR CONSULT: Abnormal labs and need for dialysis. CHIEF COMPLAINT: Unwell and abnormal labs. HISTORY OF PRESENT ILLNESS: This is a 38-year-old male with history of CHF, hypertension, came to the hospital with abnormal labs and not feeling well. The patient has been having CKD stage 4 and was in need for dialysis and was sent by Dr. Regalado. No fever or chills. No nausea or vomiting. The patient was seen during dialysis, tolerating well. He had 2 hours of dialysis today. PAST MEDICAL HISTORY: Positive also CHF, hypertension, pneumonia, end-stage renal disease. PAST SURGICAL HISTORY: Dialysis access placement. HOME MEDICATIONS: 1. Hydralazine. 2. Clonidine. 3. Coreg. 4. Isosorbide. 5. Furosemide. 6. Lipitor. 7. Aspirin. ALLERGIES: NO KNOWN DRUG ALLERGIES. SOCIAL HISTORY: No smoking, alcohol, or illicit drugs. FAMILY HISTORY: No history of kidney disease. REVIEW OF SYSTEMS: CONSTITUTIONAL: Negative for weight loss or gain, ability to conduct usual activities. SKIN: Negative for rash, itching. EYES: Negative for double vision, pain. ENT/MOUTH: Negative for nose bleeding, neck stiffness, pain, tenderness. CARDIOVASCULAR: Negative for palpitations, dyspnea on exertion, orthopnea. RESPIRATORY: Negative for shortness of breath, wheezing, cough, hemoptysis, fever or night sweats. GASTROINTESTINAL: Negative for poor appetite, abdominal pain, heartburn, nausea, vomiting, constipation, or diarrhea. GENITOURINARY: Negative for urgency, frequency, dysuria, nocturia. MUSCULOSKELETAL: Negative for pain, swelling. NEUROLOGIC/PSYCHIATRIC: Negative for anxiety, depression. ALLERGY/IMMUNOLOGIC: Negative for skin rash, bleeding tendency. Rest are negative PHYSICAL EXAMINATION: GENERAL: This is a well-built male, in no apparent distress. VITAL SIGNS: Temperature 98.0, pulse respiratory rate 18, blood pressure 206/106. HEENT: Atraumatic, normocephalic. Oral mucosa is moist. NECK: Supple. CV: S1, S2. Rate and rhythm regular. RESPIRATORY: Clear. GI: Abdomen is soft. MUSCULOSKELETAL: 1+ edema. DERMATOLOGIC: No skin rash. NEUROLOGIC: Alert and awake. PSYCH: Mood and affect normal. LABORATORY DATA: Hemoglobin is 10.5, potassium is 4.0, BUN is 70, creatinine is 8.7, albumin 2.7. ASSESSMENT AND PLAN: 1. End-stage renal disease, started on hemodialysis, need access placement. Follow with Case Management. 2. Edema, controlled. 3. Hypertension. 4. Anemia. We will add Epogen. Plan is to continue dialysis. Follow with Case Management for outpatient placement. We will check PPD. Job ID: [id number]
[2019-06-08] MEDS: cloNIDine 0.1 MG TAB PO PRN (04:12)
[2019-06-08 04:38] LABS: #Eosinphils 0.3 thou/uL (0.0-0.7); #Lymphocytes 1.2 thou/uL (1.20-3.40); #Monocytes 0.5 thou/uL (0.11-0.59); #Neutrophils 3.2 thou/uL (1.40-6.50); %Basophils 0.5 % (0.0-1.0); %Eosinophils 5.3 % (0.0-10.0); %Monocytes 10.3 % (0.0-10.0); %Neutrophils 60.9 % (42.0-75.0); Hemoglobin 10.6 g/dL (14.0-18.0); Mean Corpuscular HGB CONC 34.1 g/dL (32.0-36.0); Mean Corpuscular Hemoglobin 31.2 pg (27.0-31.0); Mean Corpuscular Volume 91.7 fL (78.0-98.0); Mean Platelet Volume 8.6 fL (7.4-10.4); Platelet Count 154 thou/uL (130-400); RBC Distribution Width 12.8 % (11.5-14.5); Red Blood Cell (RBC) Count 3.39 mill/uL (4.70-6.10); White Blood Cell (WBC) Count 5.2 thou/uL (4.8-10.8)
[2019-06-08 04:58] LABS: Anion Gap 14 mmol/L (10-20); BUN (Urea Nitrogen) 55 mg/dL (8.9-20.6); Calc. Creatinine Clearance 18 mL/min (70-130); Calcium 7.2 mg/dL (7.8-10.44); Carbon Dioxide 22 mmol/L (22-29); Chloride 106 mmol/L (98-107); Estimated GFR-MDRD 10; Glucose 201 mg/dL (70-105); Potassium 3.5 mmol/L (3.5-5.1); Sodium 138 mmol/L (136-145)
[2019-06-08] MEDS: Carvedilol 25 MG TAB PO SCH ×2 (08:27→14:17)
[2019-06-08] MEDS: Aspirin 325 MG TAB PO SCH (08:28)
[2019-06-08] MEDS: Atorvastatin Calcium 10 MG TAB PO SCH (08:29)
[2019-06-08] MEDS: hydrALAZINE 25 MG TAB PO SCH ×3 (08:29→19:56)
[2019-06-08] MEDS: Furosemide 40 MG TAB PO SCH ×2 (08:30→19:56)
[2019-06-08] MEDS: cloNIDine 0.2 MG TAB PO SCH ×2 (08:30→19:57)
[2019-06-08] MEDS ORDERED: FLU VACC QS2019-20(6MOS UP)/PF 60 MCG/0.5 ML SYRINGE IM ONE (09:00)
[2019-06-08] MEDS: Isosorbide Dinitrate 20 MG TAB PO SCH ×3 (09:48→19:58)
--- NOTE | 2019-06-08 10:58 | PRG ---
DATE OF SERVICE: 06/08/2019 SUBJECTIVE: Patient was seen and examined at bedside and overnight events noted. Patient denies any shortness of breath or chest pain or palpitation. No history of nausea or vomiting or diarrhea or fever or chills or cramps. OBJECTIVE: GENERAL: This is a well-built male, in no apparent distress. VITAL SIGNS: Temperature 99, heart rate 69, respiratory rate 16, and blood pressure 188/108. HEENT: Atraumatic, normocephalic. Oral mucosa is moist NECK: Supple. CARDIOVASCULAR: S1, S2 heard. Rate and rhythm regular. RESPIRATORY: Clear to auscultation. GASTROINTESTINAL: Abdomen is soft. MUSCULOSKELETAL: No tenderness. No edema. DERMATOLOGIC: No skin rash. NEUROLOGIC: Alert and awake and oriented X3. No focal neurologic deficits. Moving all the extremities. PSYCHIATRIC: Mood and affect normal. LABORATORY DATA: Potassium 3.5, BUN is 55, and creatinine is 6.5. ASSESSMENT AND PLAN: 1. End-stage renal disease, continue on dialysis. 2. Edema, controlled. 3. Hypertension. 4. Anemia. We will continue Epogen. 5. Continue dialysis as tolerated. Job ID: [id number]
[2019-06-08] MEDS ORDERED: Heparin 1,000 UNITS/ML VIAL ONE (11:11)
--- NOTE | 2019-06-08 17:33 | PDOC.HOSPP ---
- Subjective Encounter Date: 06/08/19 Encounter Time: 14:15 Subjective: Mr. Lucas was seen today in follow-up of newly diagnosed ESRD. He does not have any new complaints. he denies any chest pain or difficulty breathing, headaches or dizziness. - Objective Vital Signs & Weight: Vital Signs (12 hours) Temp Pulse Resp BP BP BP Pulse Ox 06/08/19 16:52 99.1 F 77 16 146/85 H 97 06/08/19 14:25 66 236/131 H 06/08/19 10:00 116/66 06/08/19 08:30 188/108 H 06/08/19 08:29 69 06/08/19 07:14 99.0 F 69 16 200/110 H 98 Weight Weight 182 lb 9.6 oz Result Diagrams: 06/08/19 04:17 06/08/19 04:17 Hospitalist ROS - Medication Medications: Active Medications Generic Name Dose Route Start Last Admin Trade Name Freq PRN Reason Stop Dose Admin Acetaminophen 650 mg 06/07/19 17:06 06/07/19 17:47 Tylenol PO 650 mg Q4H PRN Administration Headache/Fever/Mild Pain (1-3) Aspirin 325 mg 06/08/19 09:00 06/08/19 08:28 Aspirin PO 325 mg DAILY [facility] Administration Atorvastatin Calcium 10 mg 06/08/19 09:00 06/08/19 08:29 Lipitor PO 10 mg DAILY [facility] Administration Carvedilol 50 mg 06/08/19 08:00 06/08/19 14:17 Coreg PO 50 mg BID-WM [facility] Administration Clonidine 0.2 mg 06/07/19 21:00 06/08/19 08:30 Catapres PO 0.2 mg BID [facility] Administration Clonidine 0.1 mg 06/07/19 18:29 06/08/19 04:12 Catapres PO 0.1 mg Q4H PRN Administration Hypertension Famotidine 20 mg 06/07/19 21:00 06/07/19 22:27 Pepcid PO 20 mg QPM [facility] Administration Furosemide 40 mg 06/07/19 21:00 06/08/19 08:30 Lasix PO 40 mg BID [facility] Administration Hydralazine HCl 50 mg 06/07/19 21:00 06/08/19 14:15 Apresoline PO 50 mg TID [facility] Administration Isosorbide Dinitrate 60 mg 06/07/19 21:00 06/08/19 14:21 Isordil PO Not Given TID [facility] - Exam Eye: PERRL, anicteric sclera Heart: RRR, no murmur, no gallops, no rubs, normal peripheral pulses Respiratory: CTAB, no wheezes, no rales, no ronchi, normal chest expansion, no tachypnea, normal percussion Gastrointestinal: soft, non-tender, non-distended, normal bowel sounds, no palpable masses, no hepatomegaly, no splenomegaly, no guarding Extremities: no cyanosis, no clubbing, no edema Psychiatric: normal affect, normal behavior, A&O x 3 Hosp A/P (1) End-stage renal disease needing dialysis Code(s): N18.6 - END STAGE RENAL DISEASE; Z99.2 - DEPENDENCE ON RENAL DIALYSIS Status: Acute (2) Hypertension Code(s): I10 - ESSENTIAL (PRIMARY) HYPERTENSION Status: Acute (3) Chronic systolic heart failure Code(s): I50.22 - CHRONIC SYSTOLIC (CONGESTIVE) HEART FAILURE Status: Chronic - Plan * End stage renal disease- the patient has been started on dialysis and he is tolerating this well * HTN- poorly controlled- blood pressure on re-check manually in the room by me was 162/90 * Will continue the current medication, anticipate his blood pressure will improve after a few dialysis sessions, continue PRN medications * Plan is for temporary and permanent dialysis access placement this coming week.
[2019-06-08] MEDS: Famotidine 20 MG TAB PO SCH (19:56)
[2019-06-08] MEDS: Acetaminophen 325 MG TAB PO PRN (20:03)
[2019-06-09] MEDS: cloNIDine 0.1 MG TAB PO PRN (05:29)
[2019-06-09] MEDS: hydrALAZINE 25 MG TAB PO SCH ×3 (08:55→20:38)
[2019-06-09] MEDS: Carvedilol 25 MG TAB PO SCH ×2 (08:56→16:20)
[2019-06-09] MEDS: cloNIDine 0.2 MG TAB PO SCH ×2 (08:56→20:38)
[2019-06-09] MEDS: Furosemide 40 MG TAB PO SCH ×2 (08:56→20:36)
[2019-06-09] MEDS: Atorvastatin Calcium 10 MG TAB PO SCH (08:57)
[2019-06-09] MEDS: Isosorbide Dinitrate 20 MG TAB PO SCH ×3 (08:57→20:39)
[2019-06-09] MEDS: Aspirin 325 MG TAB PO SCH (08:57)
[2019-06-09] MEDS: NIFEdipine XL 60 MG TAB PO SCH (08:57)
--- NOTE | 2019-06-09 11:29 | PDOC.HOSPP ---
- Subjective Encounter Date: 06/09/19 Encounter Time: 11:28 Subjective: Lance was seen today in follow-up of End stage renal disease. He says he had a mild headache this morning. He denies chest pain or shortness of breath. - Objective Vital Signs & Weight: Vital Signs (12 hours) Temp Pulse Resp BP BP Pulse Ox 06/09/19 08:57 63 215/117 H 06/09/19 08:56 217/113 H 06/09/19 08:55 63 215/117 H 06/09/19 08:00 98 06/09/19 05:29 217/113 H 06/09/19 05:00 98.7 F 64 18 217/113 H 97 06/08/19 23:39 98.6 F 64 18 167/98 H 96 Weight Weight 182 lb 9.6 oz Result Diagrams: 06/08/19 04:17 06/08/19 04:17 Hospitalist ROS - Medication Medications: Active Medications Generic Name Dose Route Start Last Admin Trade Name Freq PRN Reason Stop Dose Admin Acetaminophen 650 mg 06/07/19 17:06 06/08/19 20:03 Tylenol PO 650 mg Q4H PRN Administration Headache/Fever/Mild Pain (1-3) Aspirin 325 mg 06/08/19 09:00 06/09/19 08:57 Aspirin PO 325 mg DAILY [facility] Administration Atorvastatin Calcium 10 mg 06/08/19 09:00 06/09/19 08:57 Lipitor PO 10 mg DAILY [facility] Administration Carvedilol 50 mg 06/08/19 08:00 06/09/19 08:56 Coreg PO 50 mg BID-WM [facility] Administration Clonidine 0.2 mg 06/07/19 21:00 06/09/19 08:56 Catapres PO 0.2 mg BID [facility] Administration Clonidine 0.1 mg 06/07/19 18:29 06/09/19 05:29 Catapres PO 0.1 mg Q4H PRN Administration Hypertension Famotidine 20 mg 06/07/19 21:00 06/08/19 19:56 Pepcid PO 20 mg QPM [facility] Administration Furosemide 40 mg 06/07/19 21:00 06/09/19 08:56 Lasix PO 40 mg BID [facility] Administration Isosorbide Dinitrate 60 mg 06/07/19 21:00 06/09/19 08:57 Isordil PO 60 mg TID [facility] Administration Nifedipine 60 mg 06/09/19 09:00 06/09/19 08:57 Procardia Xl PO 60 mg DAILY [facility] Administration - Exam Eye: PERRL, anicteric sclera Heart: RRR, no murmur, no gallops, no rubs, normal peripheral pulses Respiratory: CTAB, no wheezes, no rales, no ronchi, normal chest expansion, no tachypnea, normal percussion Gastrointestinal: soft, non-tender, non-distended, normal bowel sounds, no palpable masses, no hepatomegaly, no splenomegaly, no bruit, no guarding Extremities: no cyanosis, no clubbing, no edema Hosp A/P (1) End-stage renal disease needing dialysis Code(s): N18.6 - END STAGE RENAL DISEASE; Z99.2 - DEPENDENCE ON RENAL DIALYSIS Status: Acute (2) Hypertension Code(s): I10 - ESSENTIAL (PRIMARY) HYPERTENSION Status: Acute (3) Chronic systolic heart failure Code(s): I50.22 - CHRONIC SYSTOLIC (CONGESTIVE) HEART FAILURE Status: Chronic - Plan * End stage renal disease- He is being prepared for outpatient dialysis * HTN- poorly controlled- will add Procardia XL 60 mg a day * Plan is for temporary and permanent dialysis access placement this coming week.
--- NOTE | 2019-06-09 12:13 | PRG ---
DATE OF SERVICE: 06/09/2019 SUBJECTIVE: Patient was seen and examined at bedside and overnight events noted. Patient denies any shortness of breath or chest pain or palpitation. No history of nausea or vomiting or diarrhea or fever or chills or cramps. OBJECTIVE: GENERAL: This is a well built male, in no apparent distress. VITAL SIGNS: Temperature 99.7. Heart rate 71. Respiratory rate 21. Blood pressure 143/86. HEENT: Atraumatic, normocephalic. Oral mucosa is moist NECK: Supple. CARDIOVASCULAR: S1, S2 heard. Rate and rhythm regular. RESPIRATORY: Clear to auscultation. GASTROINTESTINAL: Abdomen is soft. MUSCULOSKELETAL: No tenderness. No edema. DERMATOLOGIC: No skin rash. NEUROLOGIC: Alert and awake and oriented X3. No focal neurologic deficits. Moving all the extremities. PSYCHIATRIC: Mood and affect normal. LABORATORY DATA: Potassium is 3.5, BUN is 55. ASSESSMENT: 1. End-stage renal disease. Continue dialysis as tolerated Monday, Monday, Monday. 2. Edema, controlled. 3. Hypertension. We will increase hydralazine. 4. Anemia. Continue Epogen. PLAN: Continue dialysis as tolerated. Job ID: [id number]
[2019-06-09] MEDS: Famotidine 20 MG TAB PO SCH (20:36)
[2019-06-09] MEDS: READ PPD TEST SITE PO SCH (23:13)
[2019-06-10] MEDS: Isosorbide Dinitrate 20 MG TAB PO SCH ×4 (09:17→20:06)
[2019-06-10] MEDS: hydrALAZINE 25 MG TAB PO SCH ×3 (09:19→20:01)
[2019-06-10] MEDS: Furosemide 40 MG TAB PO SCH ×2 (09:19→20:02)
[2019-06-10] MEDS: Carvedilol 25 MG TAB PO SCH ×2 (09:20→18:22)
[2019-06-10] MEDS: Aspirin 325 MG TAB PO SCH (09:20)
[2019-06-10] MEDS: Atorvastatin Calcium 10 MG TAB PO SCH (09:20)
[2019-06-10] MEDS: NIFEdipine XL 60 MG TAB PO SCH (09:20)
[2019-06-10] MEDS: cloNIDine 0.2 MG TAB PO SCH ×3 (09:20→20:06)
--- NOTE | 2019-06-10 13:43 | PRG ---
DATE OF SERVICE: 06/10/2019 SUBJECTIVE: A 38-year-old gentleman being seen for end-stage kidney disease. The patient denied nausea, vomiting, or chest pain. OBJECTIVE: See above. The patient is awake, alert, in no acute distress. VITAL SIGNS: Pulse 74, breathing 16, blood pressure 132/81. GENERAL APPEARANCE AND MENTAL STATUS: Fair. HEAD/NECK: Normocephalic. Atraumatic. EYES: EOMI. No deformity. EARS: Clear. No ulcers. NOSE: Intact. No lesions. MOUTH: Clear. No discharge. THROAT: Clear. No exudate. LUNGS: Clear. No crackles. CARDIAC: S1, S2. No rub. ABDOMEN: Benign. Bowel sounds positive. GENITALIA/RECTUM: Roth absent. BACK/EXTREMITIES: Edema 0+. NEUROLOGICAL: Alert and motor intact. SKIN: LYMPHATICS: LABORATORY DATA: Reviewed. ASSESSMENT AND PLAN: 1. Stage chronic kidney disease. Plan dialysis. 2. Hypertension, stable. 3. Anemia, stable. Medication based on GFR appropriate. Job ID: [id number]
[2019-06-10 13:47] LABS: #Eosinphils 0.4 thou/uL (0.0-0.7); #Lymphocytes 1.5 thou/uL (1.20-3.40); #Monocytes 0.8 thou/uL (0.11-0.59); #Neutrophils 4.2 thou/uL (1.40-6.50); %Basophils 0.6 % (0.0-1.0); %Eosinophils 5.2 % (0.0-10.0); %Lymphocytes 21.6 % (21.0-51.0); %Monocytes 11.1 % (0.0-10.0); %Neutrophils 61.5 % (42.0-75.0); Hemoglobin 9.9 g/dL (14.0-18.0); Mean Corpuscular HGB CONC 34.5 g/dL (32.0-36.0); Mean Corpuscular Hemoglobin 31.6 pg (27.0-31.0); Mean Corpuscular Volume 91.4 fL (78.0-98.0); Mean Platelet Volume 9.3 fL (7.4-10.4); Platelet Count 150 thou/uL (130-400); RBC Distribution Width 12.7 % (11.5-14.5); Red Blood Cell (RBC) Count 3.15 mill/uL (4.70-6.10); White Blood Cell (WBC) Count 6.9 thou/uL (4.8-10.8)
[2019-06-10 14:17] LABS: Anion Gap 14 mmol/L (10-20); BUN (Urea Nitrogen) 53 mg/dL (8.9-20.6); Calc. Creatinine Clearance 15 mL/min (70-130); Carbon Dioxide 24 mmol/L (22-29); Chloride 104 mmol/L (98-107); Estimated GFR-MDRD 8; Glucose 137 mg/dL (70-105); Potassium 3.6 mmol/L (3.5-5.1); Sodium 138 mmol/L (136-145)
[2019-06-10] MEDS: Activase 2 MG VIAL CATH SCH ×3 (14:43→14:56)
--- NOTE | 2019-06-10 17:08 | PDOC.HOSPP ---
- Subjective Encounter Date: 06/10/19 Encounter Time: 17:03 Subjective: Mr. Lucas was seen today in follow-up of newly diagnosed ESRD. He does not have any complaints. - Objective Vital Signs & Weight: Vital Signs (12 hours) Temp Pulse Resp BP Pulse Ox 06/10/19 11:20 98.2 F 74 16 109/63 99 06/10/19 09:16 78 16 132/81 98 06/10/19 08:15 97.8 F 71 16 119/76 99 Weight Weight 182 lb 9.6 oz I&O: 06/09/19 06/10/19 06/11/19 06:59 06:59 06:59 Intake Total 720 Balance 720 Result Diagrams: 06/10/19 13:33 06/10/19 13:33 Hospitalist ROS - Medication Medications: Active Medications Generic Name Dose Route Start Last Admin Trade Name Freq PRN Reason Stop Dose Admin Acetaminophen 650 mg 06/07/19 17:06 06/08/19 20:03 Tylenol PO 650 mg Q4H PRN Administration Headache/Fever/Mild Pain (1-3) Alteplase, Recombinant 2 mg 06/10/19 14:30 06/10/19 14:56 Cathflo CATH 2 mg ASDIR ROSE Administration Aspirin 325 mg 06/08/19 09:00 06/10/19 09:20 Aspirin PO 325 mg DAILY ROSE Administration Atorvastatin Calcium 10 mg 06/08/19 09:00 06/10/19 09:20 Lipitor PO 10 mg DAILY ROSE Administration Carvedilol 50 mg 06/08/19 08:00 06/10/19 09:20 Coreg PO 50 mg BID-WM ROSE Administration Clonidine 0.2 mg 06/07/19 21:00 06/10/19 09:20 Catapres PO 0.2 mg BID ROSE Administration Clonidine 0.1 mg 06/07/19 18:29 06/09/19 05:29 Catapres PO 0.1 mg Q4H PRN Administration Hypertension Famotidine 20 mg 06/07/19 21:00 06/09/19 20:36 Pepcid PO 20 mg QPM ROSE Administration Furosemide 40 mg 06/07/19 21:00 06/10/19 09:19 Lasix PO 40 mg BID ROSE Administration Hydralazine HCl 100 mg 06/09/19 15:00 06/10/19 14:38 Apresoline PO Not Given TID ROSE Isosorbide Dinitrate 60 mg 06/07/19 21:00 06/10/19 14:38 Isordil PO Not Given TID ROSE Nifedipine 60 mg 06/09/19 09:00 06/10/19 09:20 Procardia Xl PO 60 mg DAILY ROSE Administration Read Ppd Test Site 0 each 06/09/19 23:00 06/09/19 23:13 PO 06/10/19 23:01 Not Given 2300 ROSE Sodium Chloride 10 ml 06/07/19 17:06 06/10/19 07:53 Flush - Normal Saline IVF 10 ml PRN PRN Administration Saline Flush - Exam Eye: PERRL Heart: RRR, no murmur, no gallops, no rubs, normal peripheral pulses Respiratory: CTAB, no wheezes, no rales, no ronchi, normal chest expansion, no tachypnea, normal percussion Gastrointestinal: soft, non-tender, non-distended, normal bowel sounds, no palpable masses, no hepatomegaly, no splenomegaly, no bruit Extremities: no cyanosis, no clubbing, no edema Psychiatric: normal affect, normal behavior, A&O x 3 Hosp A/P (1) End-stage renal disease needing dialysis Code(s): N18.6 - END STAGE RENAL DISEASE; Z99.2 - DEPENDENCE ON RENAL DIALYSIS Status: Acute (2) Hypertension Code(s): I10 - ESSENTIAL (PRIMARY) HYPERTENSION Status: Acute (3) Chronic systolic heart failure Code(s): I50.22 - CHRONIC SYSTOLIC (CONGESTIVE) HEART FAILURE Status: Chronic - Plan * End stage renal disease- continue dialysis- he is tolerating * HTN- blood pressure is better * Dialysis catheter placement tomorrow * Continue the current regimen
[2019-06-10] MEDS: Famotidine 20 MG TAB PO SCH (20:02)
[2019-06-10] MEDS: READ PPD TEST SITE PO SCH (22:50)
[2019-06-11] MEDS: Carvedilol 25 MG TAB PO SCH ×2 (07:36→16:58)
[2019-06-11] MEDS: cloNIDine 0.2 MG TAB PO SCH (07:36)
[2019-06-11] MEDS: Atorvastatin Calcium 10 MG TAB PO SCH (07:36)
[2019-06-11] MEDS: NIFEdipine XL 60 MG TAB PO SCH (07:36)
[2019-06-11] MEDS: Aspirin 325 MG TAB PO SCH (07:36)
[2019-06-11] MEDS: Isosorbide Dinitrate 20 MG TAB PO SCH ×2 (07:36→14:01)
[2019-06-11] MEDS: Furosemide 40 MG TAB PO SCH (07:36)
[2019-06-11] MEDS: hydrALAZINE 25 MG TAB PO SCH ×2 (07:37→14:01)
[2019-06-11] MEDS ORDERED: CEFAZOLIN 2 GM in Premix Bag 1 BAG IVPB SCH (08:45)
--- NOTE | 2019-06-11 10:32 | PRG ---
DATE OF SERVICE: 06/11/2019 SUBJECTIVE: This is a 38-year-old gentleman, being seen for end-stage renal disease. The patient denied nausea, vomiting, or chest pain. OBJECTIVE: See above. GENERAL: The patient is awake and alert, in no acute distress. VITAL SIGNS: Pulse 80, breathing 16, blood pressure 131/83. GENERAL APPEARANCE AND MENTAL STATUS: Fair. HEAD/NECK: Normocephalic. Atraumatic. EYES: EOMI. No deformity. EARS: Clear. No ulcers. NOSE: Intact. No lesions. MOUTH: Clear. No discharge. THROAT: Clear. No exudate. LUNGS: Clear. No crackles. CARDIAC: S1, S2. No rub. ABDOMEN: Benign. Bowel sounds positive. GENITALIA/RECTUM: Roth absent. BACK/EXTREMITIES: Edema 0+. NEUROLOGICAL: Alert and motor intact. SKIN: LYMPHATICS: LABORATORY DATA: Reviewed. ASSESSMENT: Stage 6 chronic kidney disease. PLAN: Dialysis. Hypertension and anemia, stable. Medication based on GFR appropriate. Discharge planning has been ordered. Job ID: [id number]
[2019-06-11] MEDS ORDERED: Bupivacaine HCl 0.5%/Epinephrine 1:200,000/PF 30 ml Vial ONE (10:55)
[2019-06-11] MEDS ORDERED: Lidocaine 1% PF 5 ML VIAL ONE (11:17)
[2019-06-11] MEDS ORDERED: Heparin 10,000 UNITS/ 10 ML VIAL ONE ×2 (11:17→18:00)
--- NOTE | 2019-06-11 11:23 | ULT ---
BILATERAL UPPER EXTREMITY VEIN MAPPING: Date: 06/11/19 HISTORY: End-stage renal disease; evaluate for dialysis access. FINDINGS: RIGHT UPPER EXTREMITY CEPHALIC VEIN Proximal Arm: 3.4 mm Mid Arm: 2.9 mm Distal Arm: 2.2 mm Antecubital Fossa: 2.0 mm Proximal Forearm: 2.7 mm Mid Forearm: 2.9 mm Distal Forearm: 2.8 mm BASILIC VEIN Proximal Arm: 5.3 mm Mid Arm: 5.3 mm Distal Arm: 4.3 mm Antecubital Fossa: 5.3 mm Proximal Forearm: 2.0 mm Mid Forearm: 1.0 mm Distal Forearm: 0.6 mm LEFT UPPER EXTREMITY CEPHALIC VEIN Proximal Arm: 3.7 mm Mid Arm: 3.5 mm Distal Arm: 3.2 mm Antecubital Fossa: 3.6 mm Proximal Forearm: 3.8 mm Mid Forearm: 2.3 mm Distal Forearm: 2.2 mm BASILIC VEIN Proximal Arm: 4.5 mm Mid Arm: 4.6 mm Distal Arm: 5.4 mm Antecubital Fossa: 5.0 mm Proximal Forearm: 1.7 mm Mid Forearm: 1.2 mm Distal Forearm: 0.8 mm RIGHT BRACHIAL ARTERY: 5.1 mm RIGHT RADIAL ARTERY: 3.1 mm RIGHT ULNAR ARTERY: 3.0 mm LEFT BRACHIAL ARTERY: 5.5 mm LEFT RADIAL ARTERY: 3.0 mm LEFT ULNAR ARTERY: 2.7 mm IMPRESSION: Dialysis vein mapping as above. POS: [facility]
--- NOTE | 2019-06-11 12:23 | CON ---
DATE OF CONSULTATION: REASON FOR CONSULT: Need for dialysis access. HISTORY OF PRESENT ILLNESS: Mr. Lucas is a 38-year-old male with heart failure and renal failure both attributed to severe hypertension. He had a sudden increase in his creatinine from and was admitted to the hospital for initiation of dialysis. He had a femoral catheter placed by Dr. Wise for this purpose and dialyzed over the weekend without problems. He states that he was feeling ill before being admitted and thought he might got the flu. He states that a cousin had the flu, went and got checked and was negative, but they put him on Tamiflu anyway as a precaution. He states that since being admitted to the hospital, he is feeling better, and the swelling in his abdomen and face has gone down. PAST MEDICAL HISTORY: Severe hypertension, heart failure with last ejection fraction around 50%, but as low as in the past. Acute on chronic renal failure also attributed to PAST SURGICAL HISTORY: None. . FAMILY HISTORY: Noncontributory. SOCIAL HISTORY: Former smoker, quit earlier this year. No alcohol, quit last year. No illicit drug use. REVIEW OF SYSTEMS: Ten-system review of systems, negative except per HPI. Had malaise, cough, decreased appetite, abdominal and facial swelling hospital. ALLERGIES: NO KNOWN DRUG ALLERGIES. OUTPATIENT MEDICATIONS: Includes, 1. Hydralazine. 2. Coreg. 3. Isosorbide. 4. Lasix. 5. Lipitor. INPATIENT MEDICATIONS: Include, 1. Aspirin. 2. Atorvastatin. 3. Coreg. 4. Pepcid. 5. Lasix. 6. Isosorbide dinitrate. 7. Procardia. 8. Senokot 2 tabs p.o. p.r.n. LABORATORY DATA: White count is normal at 6.9, hematocrit is 28.8, platelets 150,000. BUN and creatinine are 53 and 7.59. BNP is 670.8. . Troponin was mildly elevated. IMAGING STUDIES: Chest x-ray showed no changes. PHYSICAL EXAMINATION: VITAL SIGNS: The patient is afebrile during the stay. Heart rate 80, blood pressure 131/83, 99% saturated on room air, respiratory rate 18. Before he took his morning medications, his blood pressure was 180/117. GENERAL: Reveals a healthy-appearing young male in no apparent distress. He is not flushed or toxic in appearance. HEENT: Unremarkable. NECK: Supple without HEART: Regular in rate and rhythm without murmurs, rubs, or gallops. LUNGS: Clear to auscultation bilaterally. ABDOMEN: Soft, nontender EXTREMITIES: Warm and well perfused without edema. Slightly ulnar dominant filling on the right. Bilateral Large forearm and cubital veins on both sides with multiple NEURO: No focal deficits. PSYCHIATRIC: ASSESSMENT: End-stage renal failure hypertension untreated for many It was also thought to be the cause of his heart failure, which has improved since treatment. He has a femoral catheter in place required a tunneled dialysis catheter for long-term use I did discuss the option of peritoneal dialysis versus , but the patient does not think at this point I encouraged him the best option further . The plan for today is to place a dialysis catheter, most likely a left AV fistula as he is right-hand dominant. He appears to have adequate veins on both sides ordered primarily to rule out any obstruction. Inherent risks of both procedures were discussed with the patient and these risks include, but are not limited to bleeding, infection, risks of anesthesia, hemathorax, pneumothorax, tunneled dialysis catheter, failure of the fistula to mature, need for additional procedures They understand and accept these risks and wishes to proceed. He is on the schedule for this afternoon clear liquid diet ordered for breakfast. All other questions were Job ID: [id number]
[2019-06-11] MEDS ORDERED: Midazolam HCl 2 mg/2 ml Vial ONE ×2 (13:23→14:57)
[2019-06-11] MEDS ORDERED: Fentanyl 100 MCG/2 ML VIAL ONE ×2 (13:23→14:36)
[2019-06-11] MEDS ORDERED: Phenylephrine HCL 10 MG/ML VIAL ONE (14:36)
[2019-06-11] MEDS ORDERED: Heparin 10,000 UNITS/1 ML VIAL ONE (14:38)
[2019-06-11] MEDS ORDERED: Lidocaine 2% PF 5 ML VIAL ONE (14:38)
[2019-06-11] MEDS ORDERED: Bupivacaine/Epinephrine 0.25% 30 ML VIAL ONE (14:38)
[2019-06-11] MEDS ORDERED: Protamine Sulfate 50 MG/5 ML VIAL ONE (14:38)
[2019-06-11] MEDS ORDERED: Sodium Chloride 0.9% 30 ML ONE (14:38)
[2019-06-11] MEDS ORDERED: Heparin 5,000 UNITS/ML VIAL ONE (14:38)
[2019-06-11] MEDS ORDERED: Ioversol 68 % 50 ML VIAL ONE (14:38)
[2019-06-11] MEDS ORDERED: Propofol 500 MG/50 ML VIAL ONE (14:40)
[2019-06-11] MEDS ORDERED: Ketamine 50 MG/ML (10ML VIAL) ONE (14:58)
[2019-06-11] MEDS ORDERED: Morphine Sulfate 2 MG/ML SYRINGE SLOW IVP PRN (17:52)
[2019-06-11] MEDS ORDERED: Promethazine HCl 25 MG/ML VIAL IM PRN (17:52)
[2019-06-11] MEDS ORDERED: Promethazine HCl 25 MG/ML VIAL SLOW IVP PRN (17:52)
[2019-06-11] MEDS ORDERED: Ondansetron HCl/PF 4 MG/2 ML Vial IVP PRN (17:52)
--- NOTE | 2019-06-11 18:25 | RAD ---
XR Chest 1 View History: Line placement Comparison: Radiograph June 07, 2019 Findings: Dialysis catheter is in place with tip in good position at the lower SVC. No pneumothorax. Heart size is enlarged. Mild atelectatic changes. Impression: Uncomplicated placement right IJ dialysis catheter.
[2019-06-11] MEDS: Famotidine 20 MG TAB PO SCH (20:22)
[2019-06-12] MEDS: hydrALAZINE 25 MG TAB PO SCH ×4 (00:08→20:35)
[2019-06-12] MEDS: cloNIDine 0.2 MG TAB PO SCH ×3 (00:08→20:34)
[2019-06-12] MEDS: Isosorbide Dinitrate 20 MG TAB PO SCH ×4 (00:08→20:35)
[2019-06-12] MEDS: Furosemide 40 MG TAB PO SCH ×3 (00:54→22:22)
[2019-06-12] MEDS: Acetaminophen 325 MG TAB PO PRN ×3 (00:54→22:22)
[2019-06-12] MEDS: Aspirin 325 MG TAB PO SCH (09:19)
[2019-06-12] MEDS: Atorvastatin Calcium 10 MG TAB PO SCH (09:20)
[2019-06-12] MEDS: NIFEdipine XL 60 MG TAB PO SCH (09:20)
[2019-06-12] MEDS: Carvedilol 25 MG TAB PO SCH ×2 (09:29→17:24)
--- NOTE | 2019-06-12 10:20 | PRG ---
DATE OF SERVICE: 06/12/2019 SUBJECTIVE: This is a 38-year-old gentleman being seen for end-stage renal disease. The patient denied nausea, vomiting, or chest pain. OBJECTIVE: GENERAL: The patient is awake and alert. VITAL SIGNS: Pulse 75, breathing 16, blood pressure 132/92. GENERAL APPEARANCE AND MENTAL STATUS: Fair. HEAD/NECK: Normocephalic. Atraumatic. EYES: EOMI. No deformity. EARS: Clear. No ulcers. NOSE: Intact. No lesions. MOUTH: Clear. No discharge. THROAT: Clear. No exudate. LUNGS: Clear. No crackles. CARDIAC: S1, S2. No rub. ABDOMEN: Benign. Bowel sounds positive. GENITALIA/RECTUM: Roth absent. BACK/EXTREMITIES: Edema 0+. NEUROLOGICAL: Alert and motor intact. SKIN: LYMPHATICS: LABORATORY DATA: Labs reviewed. ASSESSMENT: 1. Stage 6 chronic kidney disease, had dialysis last night. 2. Hypertension, stable. 3. Anemia, stable. 4. Medication based on GFR appropriate. Job ID: [id number]
[2019-06-12 12:26] LABS: Hep B Core Total Ab Non-Reactive (NonReactive); Hep B Core Total Index 0.06 S/CO (0-0.79); Hep B Surf AB Non-Reactive (NonReactive)
--- NOTE | 2019-06-12 14:10 | PDOC.HOSPP ---
- Subjective Encounter Date: 06/12/19 Encounter Time: 14:08 Subjective: Mr. Lucas was seen today in follow-up of New End stage renal disease. He notes some soreness on the right side of his neck, and in his left arm, after surgery, otherwise no other complaints. - Objective Vital Signs & Weight: Vital Signs (12 hours) Temp Pulse Resp BP BP BP BP 06/12/19 12:00 80 108/65 06/12/19 09:20 75 166/104 H 06/12/19 09:19 75 166/104 H 06/12/19 08:22 98.7 F 75 18 166/104 H 06/12/19 08:00 06/12/19 04:00 98.3 F 75 18 152/92 H Pulse Ox 06/12/19 12:00 06/12/19 09:20 06/12/19 09:19 06/12/19 08:22 99 06/12/19 08:00 99 06/12/19 04:00 99 Weight Weight 182 lb 9.6 oz I&O: 06/11/19 06/12/19 06/13/19 06:59 06:59 06:59 Intake Total 960 790 480 Output Total 350 Balance 960 440 480 Result Diagrams: 06/10/19 13:33 06/10/19 13:33 Hospitalist ROS - Medication Medications: Active Medications Generic Name Dose Route Start Last Admin Trade Name Freq PRN Reason Stop Dose Admin Acetaminophen 650 mg 06/07/19 17:06 06/12/19 09:29 Tylenol PO 650 mg Q4H PRN Administration Headache/Fever/Mild Pain (1-3) Alteplase, Recombinant 2 mg 06/10/19 14:30 06/10/19 14:56 Cathflo CATH 2 mg ASDIR ROSE Administration Aspirin 325 mg 06/08/19 09:00 06/12/19 09:19 Aspirin PO 325 mg DAILY ROSE Administration Atorvastatin Calcium 10 mg 06/08/19 09:00 06/12/19 09:20 Lipitor PO 10 mg DAILY ROSE Administration Carvedilol 50 mg 06/08/19 08:00 06/12/19 09:29 Coreg PO 50 mg BID-WM ROSE Administration Clonidine 0.2 mg 06/07/19 21:00 06/12/19 09:19 Catapres PO 0.2 mg BID ROSE Administration Clonidine 0.1 mg 06/07/19 18:29 06/09/19 05:29 Catapres PO 0.1 mg Q4H PRN Administration Hypertension Famotidine 20 mg 06/07/19 21:00 06/11/19 20:22 Pepcid PO 20 mg QPM ROSE Administration Furosemide 40 mg 06/07/19 21:00 06/12/19 09:20 Lasix PO 40 mg BID ROSE Administration Hydralazine HCl 100 mg 06/09/19 15:00 06/12/19 09:19 Apresoline PO 100 mg TID ROSE Administration Isosorbide Dinitrate 60 mg 06/07/19 21:00 06/12/19 09:20 Isordil PO 60 mg TID ROSE Administration Nifedipine 60 mg 06/09/19 09:00 06/12/19 09:20 Procardia Xl PO 60 mg DAILY ROSE Administration Sodium Chloride 10 ml 06/07/19 17:06 06/11/19 07:37 Flush - Normal Saline IVF 10 ml PRN PRN Administration Saline Flush - Exam Eye: PERRL, anicteric sclera Heart: RRR, no murmur, no gallops, no rubs, normal peripheral pulses Respiratory: CTAB, no wheezes, no rales, no ronchi, normal chest expansion Gastrointestinal: soft, non-tender, non-distended, normal bowel sounds, no palpable masses Extremities: no cyanosis, no clubbing, no edema (in the lower extremities, but some swelling in the left hand) Hosp A/P (1) End-stage renal disease needing dialysis Code(s): N18.6 - END STAGE RENAL DISEASE; Z99.2 - DEPENDENCE ON RENAL DIALYSIS Status: Acute (2) Hypertension Code(s): I10 - ESSENTIAL (PRIMARY) HYPERTENSION Status: Acute (3) Chronic systolic heart failure Code(s): I50.22 - CHRONIC SYSTOLIC (CONGESTIVE) HEART FAILURE Status: Chronic - Plan * End stage renal disease- continue dialysis- he is tolerating * HTN- has been a bit labile, but overall improved * Dialysis catheter and AV fistula has been placed * Awaiting out patient arrangements
[2019-06-12] MEDS: Famotidine 20 MG TAB PO SCH (20:32)
[2019-06-13] MEDS: hydrALAZINE 25 MG TAB PO SCH ×3 (07:57→20:16)
[2019-06-13] MEDS: Aspirin 325 MG TAB PO SCH (07:58)
[2019-06-13] MEDS: Carvedilol 25 MG TAB PO SCH ×2 (07:58→17:08)
[2019-06-13] MEDS: NIFEdipine XL 60 MG TAB PO SCH (07:58)
[2019-06-13] MEDS: Furosemide 40 MG TAB PO SCH ×2 (07:59→20:14)
[2019-06-13] MEDS: Isosorbide Dinitrate 20 MG TAB PO SCH ×3 (07:59→20:16)
[2019-06-13] MEDS: cloNIDine 0.2 MG TAB PO SCH ×2 (07:59→20:16)
[2019-06-13] MEDS: Atorvastatin Calcium 10 MG TAB PO SCH (07:59)
--- NOTE | 2019-06-13 11:45 | PRG ---
DATE OF SERVICE: 06/13/2019 SUBJECTIVE: This is a 38-year-old gentleman being seen for end-stage renal disease. The patient denied nausea, vomiting, or chest pain. OBJECTIVE: CONSTITUTIONAL: The patient is awake and alert. VITAL SIGNS: Afebrile, pulse 70, breathing 16, and blood pressure 136/86. GENERAL APPEARANCE AND MENTAL STATUS: Fair. HEAD/NECK: Normocephalic. Atraumatic. EYES: EOMI. No deformity. EARS: Clear. No ulcers. NOSE: Intact. No lesions. MOUTH: Clear. No discharge. THROAT: Clear. No exudate. LUNGS: Clear. No crackles. CARDIAC: S1, S2. No rub. ABDOMEN: Benign. Bowel sounds positive. GENITALIA/RECTUM: Roth absent. BACK/EXTREMITIES: Edema 0+. NEUROLOGICAL: Alert and motor intact. SKIN: LYMPHATICS: LABORATORY DATA: Reviewed. ASSESSMENT: 1. Stage 6 chronic kidney disease, plan dialysis. 2. Hypertension, stable. 3. Anemia, stable. 4. Medication based on GFR appropriate. Job ID: [id number]
[2019-06-13 12:26] LABS: Anion Gap 16 mmol/L (10-20); BUN (Urea Nitrogen) 48 mg/dL (8.9-20.6); Calc. Creatinine Clearance 15 mL/min (70-130); Calcium 7.6 mg/dL (7.8-10.44); Carbon Dioxide 24 mmol/L (22-29); Chloride 102 mmol/L (98-107); Estimated GFR-MDRD 8; Glucose 149 mg/dL (70-105); Potassium 3.9 mmol/L (3.5-5.1); Sodium 138 mmol/L (136-145)
--- NOTE | 2019-06-13 14:22 | PDOC.HOSPP ---
- Subjective Encounter Date: 06/13/19 Encounter Time: 14:20 Subjective: Mr. Lucas was seen today in follow-up of new End stage renal disease. He does not have any complaints. The soreness he had in his chest and arm has gotten much better. - Objective Vital Signs & Weight: Vital Signs (12 hours) Temp Pulse Resp BP BP Pulse Ox 06/13/19 07:58 78 06/13/19 07:57 78 149/85 H 06/13/19 07:10 98.6 F 78 17 149/85 H 98 06/13/19 04:00 98.6 F 71 18 136/86 98 Weight Weight 182 lb 9.6 oz I&O: 06/12/19 06/13/19 06/14/19 06:59 06:59 06:59 Intake Total 790 720 Output Total 350 Balance 440 720 Result Diagrams: 06/10/19 13:33 06/13/19 11:30 Hospitalist ROS - Medication Medications: Active Medications Generic Name Dose Route Start Last Admin Trade Name Freq PRN Reason Stop Dose Admin Acetaminophen 650 mg 06/07/19 17:06 06/12/19 22:22 Tylenol PO 650 mg Q4H PRN Administration Headache/Fever/Mild Pain (1-3) Alteplase, Recombinant 2 mg 06/10/19 14:30 06/10/19 14:56 Cathflo CATH 2 mg ASDIR ROSE Administration Aspirin 325 mg 06/08/19 09:00 06/13/19 07:58 Aspirin PO 325 mg DAILY ROSE Administration Atorvastatin Calcium 10 mg 06/08/19 09:00 06/13/19 07:59 Lipitor PO 10 mg DAILY ROSE Administration Carvedilol 50 mg 06/08/19 08:00 06/13/19 07:58 Coreg PO 50 mg BID-WM ROSE Administration Clonidine 0.2 mg 06/07/19 21:00 06/13/19 07:59 Catapres PO 0.2 mg BID ROSE Administration Clonidine 0.1 mg 06/07/19 18:29 06/09/19 05:29 Catapres PO 0.1 mg Q4H PRN Administration Hypertension Famotidine 20 mg 06/07/19 21:00 06/12/19 20:32 Pepcid PO 20 mg QPM ROSE Administration Furosemide 40 mg 06/07/19 21:00 06/13/19 07:59 Lasix PO 40 mg BID ROSE Administration Hydralazine HCl 100 mg 06/09/19 15:00 06/13/19 07:57 Apresoline PO 100 mg TID ROSE Administration Isosorbide Dinitrate 60 mg 06/07/19 21:00 06/13/19 07:59 Isordil PO 60 mg TID ROSE Administration Nifedipine 60 mg 06/09/19 09:00 06/13/19 07:58 Procardia Xl PO 60 mg DAILY ROSE Administration Sodium Chloride 10 ml 06/07/19 17:06 06/11/19 07:37 Flush - Normal Saline IVF 10 ml PRN PRN Administration Saline Flush - Exam Eye: PERRL, anicteric sclera Heart: RRR, no murmur, no gallops, no rubs, normal peripheral pulses Respiratory: CTAB, no wheezes, no rales, no ronchi, normal chest expansion, no tachypnea, normal percussion Gastrointestinal: soft, non-tender, non-distended, normal bowel sounds, no palpable masses, no hepatomegaly, no splenomegaly Extremities: no cyanosis, no clubbing, no edema Psychiatric: normal affect, normal behavior, A&O x 3 Hosp A/P (1) End-stage renal disease needing dialysis Code(s): N18.6 - END STAGE RENAL DISEASE; Z99.2 - DEPENDENCE ON RENAL DIALYSIS Status: Acute (2) Hypertension Code(s): I10 - ESSENTIAL (PRIMARY) HYPERTENSION Status: Acute (3) Chronic systolic heart failure Code(s): I50.22 - CHRONIC SYSTOLIC (CONGESTIVE) HEART FAILURE Status: Chronic - Plan * End stage renal disease- continue dialysis- he is tolerating * HTN- improved overall * Dialysis catheter and AV fistula has been placed * Awaiting out patient arrangements
[2019-06-13] MEDS ORDERED: Heparin 10,000 UNITS/1 ML VIAL ONE (15:00)
--- NOTE | 2019-06-13 18:26 | PDOC.GSPN ---
Surgery Progress Note: Subj - Subjective Narrative: Saw patient in dialysis earlier today. He is having some incisional pain but otherwise is comfortable. Normal function in his hand a little bit of numbness between his thumb and second finger. Fistula has an excellent thrill and is dilating well. He can follow up with me in the clinic in 2-3 weeks after discharge for fistula check. Surgery Progress Note: Obj - Vital signs Vital signs: Vital Signs - Most Recent Temp Pulse Resp BP Pulse Ox 98.6 F 78 17 149/85 H 98 06/13/19 07:10 06/13/19 14:47 06/13/19 07:10 06/13/19 07:57 06/13/19 07:10 Surgery Progress Note: Results - Labs Result Diagrams: 06/10/19 13:33 06/13/19 11:30 Lab results: Laboratory Results - last 24 hr 06/13/19 11:30 Sodium 138 Potassium 3.9 Chloride 102 Carbon Dioxide 24 Anion Gap 16 BUN 48 H Creatinine 7.85 H Estimated GFR (MDRD) 8 Glucose 149 H Calcium 7.6 L
[2019-06-13] MEDS: Famotidine 20 MG TAB PO SCH (20:15)
[2019-06-13] MEDS: Acetaminophen 325 MG TAB PO PRN (20:21)
[2019-06-14] MEDS: Atorvastatin Calcium 10 MG TAB PO SCH (08:23)
[2019-06-14] MEDS: hydrALAZINE 25 MG TAB PO SCH ×3 (08:23→20:11)
[2019-06-14] MEDS: Aspirin 325 MG TAB PO SCH (08:23)
[2019-06-14] MEDS: Isosorbide Dinitrate 20 MG TAB PO SCH ×3 (08:23→20:11)
[2019-06-14] MEDS: Furosemide 40 MG TAB PO SCH ×2 (08:24→20:13)
[2019-06-14] MEDS: cloNIDine 0.2 MG TAB PO SCH ×2 (08:24→20:10)
[2019-06-14] MEDS: NIFEdipine XL 60 MG TAB PO SCH (08:24)
[2019-06-14] MEDS: Carvedilol 25 MG TAB PO SCH ×2 (08:24→16:06)
--- NOTE | 2019-06-14 12:58 | PRG ---
DATE OF SERVICE: 06/14/2019 SUBJECTIVE: This is a 38-year-old gentleman, being seen for end-stage kidney disease. The patient denies any nausea, vomiting, or chest pain. OBJECTIVE: CONSTITUTIONAL: The patient is awake and alert. VITAL SIGNS: Pulse 82, breathing 16, and blood pressure 170/106. GENERAL APPEARANCE AND MENTAL STATUS: Fair. HEAD/NECK: Normocephalic. Atraumatic. EYES: EOMI. No deformity. EARS: Clear. No ulcers. NOSE: Intact. No lesions. MOUTH: Clear. No discharge. THROAT: Clear. No exudate. LUNGS: Clear. No crackles. CARDIAC: S1, S2. No rub. ABDOMEN: Benign. Bowel sounds positive. GENITALIA/RECTUM: Roth absent. BACK/EXTREMITIES: Edema 0+. NEUROLOGICAL: Alert and motor intact. SKIN: LYMPHATICS: LABORATORY DATA: Reviewed. ASSESSMENT AND PLAN: 1. Stage hemodialysis. 2. Hypertension, stable. 3. Anemia, stable. 4. Medication based on GFR appropriate. Job ID: [id number]
--- NOTE | 2019-06-14 19:32 | PDOC.OP ---
Operative Note - Operative Note Operative Note: DATE OF PROCEDURE: 06/11/2019 PROCEDURE: Placement of right internal jugular tunneled hemodialysis catheter with ultrasound and fluoroscopic guidance, left radiocephalic Ja fistula. SURGEON: Corine Morin M.D. PREOPERATIVE DIAGNOSIS: Acute/Chronic renal failure. POSTOPERATIVE DIAGNOSIS: Acute/Chronic renal failure. HISTORY: Patient with renal failure who recently began hemodialysis with a femoral catheter. 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 PROCEDURE: After informed consent was obtained and appropriate preoperative antibiotics were administered, the patient was taken to the Operating Room, placed in the supine position and monitored anesthesia care was administered. The neck and chest were prepped and draped in a standard sterile fashion and the patient placed in Trendelenburg position. A sterile ultrasound probe was used to identify the patent compressible right IJ vein which was accessed under direct ultrasound guidance. A wire was threaded through the needle and confirmed by ultrasound to be within the patent compressible vessel with the tip in the vena cava by fluoroscopy. Local anesthesia was infused to the skin and subcutaneous tissues of the right neck and chest. An infraclavicular incision was made and a catheter tunneled from the infraclavicular to the right IJ access site. The right IJ was sequentially dilated over the wire following which a dilator and sheath were placed over the wire and the dilator and wire removed leaving the sheath in place. The catheter was tunneled through the sheath which was then split and removed leaving the catheter in place. This was confirmed by fluoroscopy to be in good position in the superior vena cava with no kinking of the course of the catheter. Both ports easily aspirated dark venous nonpulsatile blood and easily flushed without resistance. Heparin was instilled to the quantity specified on the hub, and the hub was secured to the skin with 3-0 nylon sutures. The skin incision at the neck was closed in two layers with 4-0 Monocryl suture and Dermabond dressings were placed. The skin at the exit site was snugged up around the catheter with 4-0 Monocryl suture and Dermabond was placed there as well. Once the Dermabond was dry, a Biopatch and Tegaderm dressing was placed at the exit site. Attention was then turned to placement of the Ja fistula. A preoperative block had been placed by anesthesia and adequacy confirmed. The patient's arm was prepped and draped in standard sterile fashion. The palpable cephalic vein and radial artery were marked on the skin. An incision was made between these 2 structures and dissection carried down to the cephalic vein. This was felt to be of adequate caliber and quality to support an AV fistula. The vein was ligated distally, divided and spatulated. The vein was interrogated with cardiac dilators and easily accepted up to a 4mm dilator. The vein was flushed with heparinized saline and clamped. The radial artery was identified and dissected free and was felt to be of adequate caliber and quality to support a fistula. This was dissected free. Heparin was administered systemically and allowed to circulate for 3 minutes. After the heparin had circulated for 3 minutes, the radial artery was clamped proximally and distally. An anterior arteriotomy was created with an 11 blade and extended with Camara scissors. The vein was spatulated and an end-to-side anastomosis was created with excellent technical result. Prior to tying down the anastomosis, the arterial inflow was released flushing the anastomosis. The anastomosis was then secured and hemostasis was verified. Flow was established first through the fistula following which flow was restored through the artery. The patient had a palpable thrill in the cephalic vein as well as a good Doppler signal to the level of the antecubital fossa. The wound was irrigated and examined for hemostasis was again confirmed to be excellent. The subcutaneous tissues were reapproximated with a running 3-0 Monocryl sutures and the skin was closed with running 4-0 subcuticular Monocryl suture. Dermabond dressings were placed. Prior to leaving the operating room the fistula was again examined by Doppler and a good bruit confirmed. The patient was then taken to recovery in good condition. Estimated blood loss was minimal. There were no complications. There were no specimens.
[2019-06-14] MEDS: Famotidine 20 MG TAB PO SCH (20:12)
[2019-06-15] MEDS: Acetaminophen 325 MG TAB PO PRN (00:44)
[2019-06-15] MEDS: Aspirin 325 MG TAB PO SCH (08:25)
[2019-06-15] MEDS: NIFEdipine XL 60 MG TAB PO SCH (08:25)
[2019-06-15] MEDS: Furosemide 40 MG TAB PO SCH ×2 (08:25→20:54)
[2019-06-15] MEDS: cloNIDine 0.2 MG TAB PO SCH ×2 (08:25→20:53)
[2019-06-15] MEDS: Isosorbide Dinitrate 20 MG TAB PO SCH ×3 (08:26→20:52)
[2019-06-15] MEDS: Carvedilol 25 MG TAB PO SCH ×2 (08:26→18:30)
[2019-06-15] MEDS: hydrALAZINE 25 MG TAB PO SCH ×3 (08:26→20:53)
[2019-06-15] MEDS: Atorvastatin Calcium 10 MG TAB PO SCH (08:27)
[2019-06-15] MEDS ORDERED: Heparin 1,000 UNITS/ML VIAL ONE (11:11)
--- NOTE | 2019-06-15 11:46 | PRG ---
DATE OF SERVICE: 06/15/2019 SUBJECTIVE: A 38-year-old gentleman, being seen for end-stage renal disease. The patient denied nausea, vomiting or chest pain. OBJECTIVE: CONSTITUTIONAL: The patient is awake and alert. VITAL SIGNS: Pulse 80, breathing 16, blood pressure 137/85. GENERAL APPEARANCE AND MENTAL STATUS: Fair. HEAD/NECK: Normocephalic. Atraumatic. EYES: EOMI. No deformity. EARS: Clear. No ulcers. NOSE: Intact. No lesions. MOUTH: Clear. No discharge. THROAT: Clear. No exudate. LUNGS: Clear. No crackles. CARDIAC: S1, S2. No rub. ABDOMEN: Benign. Bowel sounds positive. GENITALIA/RECTUM: Roth absent. BACK/EXTREMITIES: Edema 0+. NEUROLOGICAL: Alert and motor intact. SKIN: LYMPHATICS: LABORATORY DATA: Reviewed. ASSESSMENT AND PLAN: 1. Stage 6 chronic kidney disease, stable. 2. Hypertensive, stable. 3. Anemia, stable. 4. Medication based on GFR appropriate. Job ID: [id number]
[2019-06-15] MEDS: Famotidine 20 MG TAB PO SCH (20:54)
--- NOTE | 2019-06-15 23:56 | EKG ---
Test Reason : Blood Pressure : / mmHG Vent. Rate : 073 BPM Atrial Rate : 073 BPM P-R Int : 170 ms QRS Dur : 098 ms QT Int : 430 ms P-R-T Axes : 035 017 112 degrees QTc Int : 473 ms Normal sinus rhythm Prolonged QT Abnormal ECG Confirmed by RIMMA LYLES MD [id number]), desk editor GINA LANDON ([id number]) on 06/15/2019 11:56:17 PM Referred By: Confirmed By:RIMMA LYLES MD
[2019-06-16] MEDS: Aspirin 325 MG TAB PO SCH (08:14)
[2019-06-16] MEDS: Carvedilol 25 MG TAB PO SCH ×2 (08:14→16:52)
[2019-06-16] MEDS: NIFEdipine XL 60 MG TAB PO SCH (08:15)
[2019-06-16] MEDS: Atorvastatin Calcium 10 MG TAB PO SCH (08:16)
[2019-06-16] MEDS: Furosemide 40 MG TAB PO SCH ×2 (08:16→20:52)
[2019-06-16] MEDS: Isosorbide Dinitrate 20 MG TAB PO SCH ×3 (08:17→20:41)
[2019-06-16] MEDS: cloNIDine 0.2 MG TAB PO SCH ×2 (08:17→20:40)
[2019-06-16] MEDS: hydrALAZINE 25 MG TAB PO SCH ×3 (08:18→20:41)
--- NOTE | 2019-06-16 12:34 | PRG ---
DATE OF SERVICE: 06/16/2019 SUBJECTIVE: A 38-year-old gentleman, being seen for end-stage kidney disease. The patient denied any nausea, vomiting, or chest pain. OBJECTIVE: See above. Awake, alert, in no acute distress. VITAL SIGNS: Afebrile, pulse 75, breathing 16, and blood pressure was 130/74. GENERAL APPEARANCE AND MENTAL STATUS: Fair. HEAD/NECK: Normocephalic. Atraumatic. EYES: EOMI. No deformity. EARS: Clear. No ulcers. NOSE: Intact. No lesions. MOUTH: Clear. No discharge. THROAT: Clear. No exudate. LUNGS: Clear. No crackles. CARDIAC: S1, S2. No rub. ABDOMEN: Benign. Bowel sounds positive. GENITALIA/RECTUM: Roth absent. BACK/EXTREMITIES: Edema 0+. NEUROLOGICAL: Alert and motor intact. SKIN: LYMPHATICS: LABORATORY DATA: Reviewed. ASSESSMENT AND PLAN: 1. Stage 6 chronic kidney disease, plan dialysis. 2. Hypertension, stable. 3. Anemia, stable. 4. Medications based on GFR appropriate. Job ID: [id number]
[2019-06-16] MEDS: Famotidine 20 MG TAB PO SCH (20:52)
[2019-06-17 07:13] VITALS: TEMP 98
[2019-06-17] MEDS: Carvedilol 25 MG TAB PO SCH ×2 (08:00→16:45)
[2019-06-17] MEDS ORDERED: Heparin 10,000 UNITS/ 10 ML VIAL ONE (09:00)
[2019-06-17] MEDS: hydrALAZINE 25 MG TAB PO SCH ×2 (09:00→14:56)
[2019-06-17] MEDS: Isosorbide Dinitrate 20 MG TAB PO SCH ×2 (09:00→13:25)
[2019-06-17] MEDS: NIFEdipine XL 60 MG TAB PO SCH ×2 (09:00→13:22)
--- NOTE | 2019-06-17 11:13 | PRG ---
DATE OF SERVICE: 06/17/2019 SUBJECTIVE: Patient was seen and examined at bedside and overnight events noted. Patient denies any shortness of breath or chest pain or palpitation. No history of nausea or vomiting or diarrhea or fever or chills or cramps. OBJECTIVE: GENERAL: This is a well-built male, in no apparent distress. VITAL SIGNS: Temperature 97. Heart rate 84. Respiratory rate 16. Blood pressure 157/97. HEENT: Atraumatic, normocephalic. Oral mucosa is moist NECK: Supple. CARDIOVASCULAR: S1, S2 heard. Rate and rhythm regular. RESPIRATORY: Clear to auscultation. GASTROINTESTINAL: Abdomen is soft. MUSCULOSKELETAL: No tenderness. No edema. DERMATOLOGIC: No skin rash. NEUROLOGIC: Alert and awake and oriented X3. No focal neurologic deficits. Moving all the extremities. PSYCHIATRIC: Mood and affect normal. LABORATORY DATA: Not done today. ASSESSMENT AND PLAN: 1. End-stage renal disease. Continue on dialysis as tolerated. The patient is seen during dialysis, tolerating well. 2. Hypertension, stable. 3. Anemia. 4. Edema, controlled. Continue on dialysis. Follow with Case Management for outpatient placement. Job ID: [id number]
[2019-06-17] MEDS: cloNIDine 0.2 MG TAB PO SCH (11:14)
[2019-06-17] MEDS: Aspirin 325 MG TAB PO SCH (13:24)
[2019-06-17] MEDS: Furosemide 40 MG TAB PO SCH (13:24)
[2019-06-17] MEDS: Atorvastatin Calcium 10 MG TAB PO SCH (13:25)
--- NOTE | 2019-06-17 15:08 | PDOC.HOSPP ---
- Subjective Encounter Date: 06/15/19 Encounter Time: 10:30 Subjective: pt up in bed no complains - Objective Vital Signs & Weight: Vital Signs (12 hours) Temp Pulse Resp BP BP BP Pulse Ox 06/17/19 14:56 84 161/97 H 06/17/19 13:22 84 165/118 H 06/17/19 13:20 98.0 F 95 16 165/118 H 99 06/17/19 09:00 84 06/17/19 07:35 99 06/17/19 07:12 98.0 F 84 16 157/97 H 99 06/17/19 04:00 98.1 F 67 16 144/84 H 99 Weight Weight 182 lb 9.6 oz Result Diagrams: 06/10/19 13:33 06/13/19 11:30 Hospitalist ROS - Review of Systems Cardiovascular: denies: chest pain, palpitations, orthopnea, paroxysmal noc. dyspnea, edema, light headedness, other Genitourinary: denies: dysuria, frequency, incontinence, hematuria, retention, other - Medication Medications: Active Medications Generic Name Dose Route Start Last Admin Trade Name Freq PRN Reason Stop Dose Admin Acetaminophen 650 mg 06/07/19 17:06 06/15/19 00:44 Tylenol PO 650 mg Q4H PRN Administration Headache/Fever/Mild Pain (1-3) Alteplase, Recombinant 2 mg 06/10/19 14:30 06/10/19 14:56 Cathflo CATH 2 mg ASDIR ROSE Administration Aspirin 325 mg 06/08/19 09:00 06/17/19 13:24 Aspirin PO 325 mg DAILY ROSE Administration Atorvastatin Calcium 10 mg 06/08/19 09:00 06/17/19 13:25 Lipitor PO 10 mg DAILY ROSE Administration Carvedilol 50 mg 06/08/19 08:00 06/17/19 08:00 Coreg PO Not Given BID-WM ROSE Clonidine 0.2 mg 06/07/19 21:00 06/17/19 11:14 Catapres PO Not Given BID ROSE Clonidine 0.1 mg 06/07/19 18:29 06/09/19 05:29 Catapres PO 0.1 mg Q4H PRN Administration Hypertension Famotidine 20 mg 06/07/19 21:00 06/16/19 20:52 Pepcid PO 20 mg QPM ROSE Administration Furosemide 40 mg 06/07/19 21:00 06/17/19 13:24 Lasix PO 40 mg BID ROSE Administration Hydralazine HCl 100 mg 06/09/19 15:00 06/17/19 14:56 Apresoline PO 100 mg TID ROSE Administration Isosorbide Dinitrate 60 mg 06/07/19 21:00 06/17/19 13:25 Isordil PO 60 mg TID ROSE Administration Nifedipine 60 mg 06/09/19 09:00 06/17/19 13:22 Procardia Xl PO 60 mg DAILY ROSE Administration Sodium Chloride 10 ml 06/07/19 17:06 06/11/19 07:37 Flush - Normal Saline IVF 10 ml PRN PRN Administration Saline Flush - Exam Neck: supple, symmetric Heart: RRR, no murmur Respiratory: CTAB, no wheezes Gastrointestinal: soft, non-tender Hosp A/P (1) End-stage renal disease needing dialysis Code(s): N18.6 - END STAGE RENAL DISEASE; Z99.2 - DEPENDENCE ON RENAL DIALYSIS Status: Acute (2) Hypertension Code(s): I10 - ESSENTIAL (PRIMARY) HYPERTENSION Status: Acute - Plan pt's dialysis has not been set up. blood pressure stable will monitor. possible discharge on Monday.
[2019-06-17 16:47] VITALS: BP 129/79
== END 2019-06-17 17:00 | disposition home or self-care (01) | DRG 674 ==
LOC: ERS 12:13 → T4-A 16:51
PROVIDERS: ADMIT Internal Medicine; ATTEND Internal Medicine
PROC: 5A1D70Z Performance of Urinary Filtration, Intermittent, Less than 6 Hours Per Day (ICD-10-PCS; principal; 2019-06-07)
PROC: 06HY33Z Insertion of Infusion Device into Lower Vein, Percutaneous Approach (ICD-10-PCS; 2019-06-07)
PROC: 3E02340 Introduction of Influenza Vaccine into Muscle, Percutaneous Approach (ICD-10-PCS; 2019-06-08)
PROC: 031C3ZF Bypass Left Radial Artery to Lower Arm Vein, Percutaneous Approach (ICD-10-PCS; 2019-06-11)
PROC: 02HV33Z Insertion of Infusion Device into Superior Vena Cava, Percutaneous Approach (ICD-10-PCS; 2019-06-11)
PROC: 0JH63XZ Insertion of Tunneled Vascular Access Device into Chest Subcutaneous Tissue and Fascia, Percutaneous Approach (ICD-10-PCS; 2019-06-11)
PROC: B518YZA Fluoroscopy of Superior Vena Cava using Other Contrast, Guidance (ICD-10-PCS; 2019-06-11)
DX: N17.9 Acute kidney failure, unspecified (principal); I13.2 Hypertensive heart and chronic kidney disease with heart failure and with stage 5 chronic kidney disease, or end stage renal disease; I50.22 Chronic systolic (congestive) heart failure; N18.6 End stage renal disease; E78.5 Hyperlipidemia, unspecified; D63.1 Anemia in chronic kidney disease; R51 Headache; Z79.82 Long term (current) use of aspirin; Z79.899 Other long term (current) drug therapy; Z87.01 Personal history of pneumonia (recurrent); Z87.891 Personal history of nicotine dependence; Z23 Encounter for immunization
CPT/HCPCS: 36415; 71045; 80048; 80053; 82553; 83735; 83880; 84484; 85025; 86580; 86704; 86706; 87340; 90471; 90686; 90935; 93005; 93970; C1752; C1769; G0008; G0257; G0365; J0670; J1642; J1644; J2001; J2250; J2370; J2704; J2720; J2997; J3010; Q9967

== ENCOUNTER 2020-04-08 13:56 | Outpatient (CLI) | payer OTHER ==
--- NOTE | 2020-04-08 14:42 | ULT ---
Bilateral renal ultrasound CLINICAL INDICATION: Left flank pain in a patient on dialysis. COMPARISON: 11/26/2018 FINDINGS: Right kidney: Again noted is an exophytic anechoic cystic lesion seen at the superior pole right kidn ey measuring 2.5 cm which is slightly larger in size compared to prior study and previously measured 2 cm. However, this cystic lesion has sonographic characteristics most compatible with a cys t. No additional renal mass, hydronephrosis, or renal calculus is seen involving the right kidney.The right kidney measures 8.9 cm x 4.9 cm. These measurements are smaller in size when compare d to the prior study in 2019 with the kidney previously measuring 11.2 cm x 4.8 cm. There is no renal cortical thinning. Left kidney: Small anechoic structure is now seen in the inferior pole left kidney measuring 1.4 cm w hich demonstrating sonographic characteristics most compatible with a small cyst. No left renal hydronephrosis or renal calculus is seen.The left kidney measures 9.7 cm x 5.9 cm. Left kidney previo usly measured 11.8 cm x 6. Urinary bladder: Decompressed and not well evaluated on this exam. IMPRESSION: 1. Bilateral renal cysts. 2. No evidence of hydronephrosis. 3. Kidneys are mildly smaller in size compared to prior exam, but there is no renal cortical thinning present. 4. Urinary bladder decompressed.
== END 2020-04-08 13:57 | disposition home or self-care (01) ==
LOC: BICULT 13:56
PROVIDERS: ATTEND Internal Medicine Nephrology
DX: N28.9 Disorder of kidney and ureter, unspecified (principal); N28.1 Cyst of kidney, acquired; N27.1 Small kidney, bilateral; N32.89 Other specified disorders of bladder
CPT/HCPCS: 76770

== ENCOUNTER 2022-03-30 13:20 | Emergency (ER) | payer MEDICARE, OTHER, MEDICAID ==
[2022-03-30 14:50] LABS: #Basophils 0.1 thou/uL (0.0-0.2); #Eosinphils 0.3 thou/uL (0.0-0.7); #Lymphocytes 1.4 thou/uL (1.20-3.40); #Monocytes 0.8 thou/uL (0.11-0.59); #Neutrophils 4.5 thou/uL (1.40-6.50); %Basophils 1.1 % (0.0-1.0); %Lymphocytes 20.3 % (21.0-51.0); %Monocytes 11.2 % (0.0-10.0); %Neutrophils 63.4 % (42.0-75.0); Hemoglobin 15.1 g/dL (14.0-18.0); Mean Corpuscular HGB CONC 34.1 g/dL (32.0-36.0); Mean Corpuscular Hemoglobin 34.1 pg (27.0-31.0); Mean Platelet Volume 8.2 fL (7.4-10.4); Platelet Count 172 thou/uL (130-400); RBC Distribution Width 12.1 % (11.5-14.5); Red Blood Cell (RBC) Count 4.42 mill/uL (4.70-6.10)
[2022-03-30 15:14] LABS: ALT (SGPT) 17 U/L (8-55); AST (SGOT) 13 U/L (5-34); Albumin 4.6 g/dL (3.5-5.0); Alkaline Phosphatase 77 U/L (40-110); Anion Gap 17 mmol/L (10-20); BUN (Urea Nitrogen) 27 mg/dL (8.9-20.6); Bilirubin, Total 0.9 mg/dL (0.2-1.2); Calc. Creatinine Clearance 0 mL/min (70-130); Calcium 9.9 mg/dL (7.8-10.44); Carbon Dioxide 31 mmol/L (22-29); Chloride 93 mmol/L (98-107); Estimated GFR 8; Globulin 3.7 g/dL (2.4-3.5); Glucose 134 mg/dL (70-105); Potassium 4.2 mmol/L (3.5-5.1); Protein, Total 8.3 g/dL (6.0-8.3); Sodium 137 mmol/L (136-145)
== END 2022-03-30 17:15 | disposition home or self-care (01) ==
LOC: ERS 13:20
DX: R07.9 Chest pain, unspecified (principal); I13.2 Hypertensive heart and chronic kidney disease with heart failure and with stage 5 chronic kidney disease, or end stage renal disease; I50.9 Heart failure, unspecified; E11.22 Type 2 diabetes mellitus with diabetic chronic kidney disease; N18.6 End stage renal disease; F17.210 Nicotine dependence, cigarettes, uncomplicated; Z79.899 Other long term (current) drug therapy
CPT/HCPCS: 36415; 71045; 80053; 84484; 85025; 93005

== ENCOUNTER 2022-10-23 12:25 | Inpatient (IN) | payer MEDICARE, MEDICAID ==
[2022-10-23 13:24] LABS: #Eosinphils 0.1 thou/uL (0.0-0.7); #Lymphocytes 0.2 thou/uL (1.20-3.40); #Monocytes 0.3 thou/uL (0.11-0.59); #Neutrophils 8.4 thou/uL (1.40-6.50); %Basophils 0.4 % (0.0-1.0); %Eosinophils 0.6 % (0.0-10.0); %Lymphocytes 2.7 % (21.0-51.0); %Neutrophils 93.3 % (42.0-75.0); Hemoglobin 12.6 g/dL (14.0-18.0); Mean Corpuscular HGB CONC 32.5 g/dL (32.0-36.0); Mean Corpuscular Hemoglobin 31.8 pg (27.0-31.0); Mean Corpuscular Volume 97.9 fl (78.0-98.0); Mean Platelet Volume 8.8 fL (7.4-10.4); Platelet Count 188 10x3/uL (130-400); RBC Distribution Width 11.6 % (11.5-14.5); Red Blood Cell (RBC) Count 3.96 mill/uL (4.70-6.10); White Blood Cell (WBC) Count 8.9 10x3/uL (4.8-10.8)
[2022-10-23 13:45] LABS: ALT (SGPT) 20 U/L (8-55); AST (SGOT) 19 U/L (5-34); Albumin 3.6 g/dL (3.5-5.0); Alkaline Phosphatase 84 U/L (40-110); Anion Gap 21 mmol/L (10-20); BUN (Urea Nitrogen) 61 mg/dL (8.9-20.6); Bilirubin, Total 0.7 mg/dL (0.2-1.2); Calc. Creatinine Clearance 0 mL/min (70-130); Calcium 8.6 mg/dL (7.8-10.44); Carbon Dioxide 25 mmol/L (22-29); Chloride 99 mmol/L (98-107); Estimated GFR 4; Globulin 2.7 g/dL (2.4-3.5); Glucose 123 mg/dL (70-105); Potassium 5.4 mmol/L (3.5-5.1); Protein, Total 6.3 g/dL (6.0-8.3); Sodium 140 mmol/L (136-145)
[2022-10-23 14:09] LABS: CKMB 1.5 ng/mL (0-6.6)
[2022-10-23 15:59] LABS: Actual Bicarbonate (HCO3v) 30 mEq/L (22-28); Base Excess 4.4 mEq/L (-2.0 to +3.0); Calcium, Ionized (venous) 1.01 mmol/L (1.16-1.32); Chloride (VBG) 97 mmol/L (98-106); Hemoglobin (Hb) 12.4 g/dL (13.2-17.3); Sodium 138.6 mmol/L (133-146); pH (venous) 7.42 (7.32-7.43)
[2022-10-23] MEDS ORDERED: Nitroglycerin 2% Ointment 1 INCH/1 GM Packet ONE (15:59)
[2022-10-23] MEDS ORDERED: hydrALAZINE 20 MG/ML VIAL ONE (15:59)
[2022-10-23 16:02] LABS: Bacteria/HPF None Seen HPF (None Seen); Bilirubin Negative (Negative); Blood, Urine 3+ (Negative); Clarity Clear (Clear); Glucose, Urine (Dipstick) 150 mg/dL (Negative); Ketone, Urine Negative (Negative); Leukocyte Negative Leu/uL (Negative); Nitrite Negative (Negative); Protein, Urine (Dipstick) 200 mg/dL (Neg-Trace); Specific Gravity, Urine 1.008 (1.002-1.036); Squamous Epithelial 0-3 HPF (0-3); Urobilinogen Normal mg/dL (Less than 2); WBC/HPF 0-3 HPF (0-3); pH, Urine 8.5 (5.0-9.0)
[2022-10-23 16:15] LABS: Magnesium 2.6 mg/dL (1.6-2.6)
[2022-10-23] MEDS ORDERED: niCARdipine 25 MG/10 ML VIAL ONE (16:58)
[2022-10-23 17:09] LABS: Phosphorus 5.9 mg/dL (2.3-4.7)
[2022-10-23] MEDS ORDERED: Ondansetron PF 4 MG/2 ML Vial ONE (17:36)
[2022-10-23] MEDS ORDERED: Acetaminophen 500 MG TAB ONE (17:48)
[2022-10-23 17:55] LABS: HBSAg Index 0.25 S/CO (0-0.99); Hep B Core Total Ab Non-Reactive (NonReactive); Hep B Core Total Index 0.05 S/CO (0-0.79); Hep B Surf Ag Non-Reactive S/CO (NonReactive)
[2022-10-23 18:09] LABS: HBSAB Concentration 84.06 mIU/mL; Hep B Surf AB Reactive (NonReactive)
[2022-10-23] MEDS ORDERED: Dextrose 50% Abboject 50 ML SYRINGE SLOW IVP PRN (18:27)
[2022-10-23] MEDS ORDERED: Dextrose 5% in Water 1,000 ML IV PRN (18:27)
[2022-10-23] MEDS ORDERED: Metoclopramide HCl 10 MG/2 ML VIAL IVP PRN (18:29)
[2022-10-23] MEDS ORDERED: HumaLOG 300 UNITS/3 ML VIAL SC PRN ×2 (18:29)
[2022-10-23] MEDS ORDERED: niCARdipine 50 MG in Sodium Chloride 0.9% 250 ML 230 ML IVPB SCH (19:00)
[2022-10-23 19:44] LABS: Troponin I 0.145 ng/mL (< 0.028)
[2022-10-23] MEDS: Acetaminophen 325 MG TAB PO PRN (21:08)
[2022-10-23] MEDS: Atorvastatin Calcium 20 MG TAB PO SCH (21:09)
[2022-10-23] MEDS: Heparin 5,000 UNITS/ML VIAL SC SCH (21:09)
[2022-10-23] MEDS: Sodium Bicarbonate Tab 325 MG TAB PO SCH (21:09)
[2022-10-23] MEDS: Tacrolimus 0.5 MG CAP PO SCH (21:10)
[2022-10-23 22:56] LABS: SARS-CoV-2 NAA Rapid Test Not Detected (NotDetected)
[2022-10-24] MEDS: Acetaminophen 325 MG TAB PO PRN ×4 (02:24→17:56)
[2022-10-24 04:23] LABS: #Eosinphils 0.1 thou/uL (0.0-0.7); #Lymphocytes 0.3 thou/uL (1.20-3.40); #Monocytes 0.5 thou/uL (0.11-0.59); #Neutrophils 6.2 thou/uL (1.40-6.50); %Basophils 0.4 % (0.0-1.0); %Eosinophils 1.5 % (0.0-10.0); %Lymphocytes 4.5 % (21.0-51.0); %Monocytes 6.3 % (0.0-10.0); %Neutrophils 87.3 % (42.0-75.0); Hemoglobin 11.8 g/dL (14.0-18.0); Mean Corpuscular HGB CONC 33.2 g/dL (32.0-36.0); Mean Corpuscular Hemoglobin 32.2 pg (27.0-31.0); Mean Platelet Volume 8.4 fL (7.4-10.4); Platelet Count 197 10x3/uL (130-400); RBC Distribution Width 11.6 % (11.5-14.5); Red Blood Cell (RBC) Count 3.68 mill/uL (4.70-6.10); White Blood Cell (WBC) Count 7.2 10x3/uL (4.8-10.8)
[2022-10-24 04:44] LABS: Anion Gap 18 mmol/L (10-20); BUN (Urea Nitrogen) 34 mg/dL (8.9-20.6); Calc. Creatinine Clearance 11 mL/min (70-130); Calcium 8.9 mg/dL (7.8-10.44); Carbon Dioxide 25 mmol/L (22-29); Chloride 100 mmol/L (98-107); Estimated GFR 6; Glucose 111 mg/dL (70-105); Potassium 4.3 mmol/L (3.5-5.1); Sodium 139 mmol/L (136-145)
[2022-10-24 05:16] VITALS: BMI 23.5
[2022-10-24] MEDS: predniSONE 5 MG TAB PO SCH (07:11)
[2022-10-24] MEDS: Aspirin 81 mg Enteric Coated Tablet PO SCH (07:11)
[2022-10-24] MEDS: Lisinopril 5 MG TAB PO SCH (07:16)
[2022-10-24] MEDS: Cinacalcet HCl 30 MG TAB PO SCH (07:17)
[2022-10-24] MEDS: Amlodipine 10 MG TAB PO SCH (07:33)
[2022-10-24] MEDS: Sodium Bicarbonate Tab 325 MG TAB PO SCH ×2 (09:28→20:47)
[2022-10-24] MEDS: Sulfameth/Trimethoprim SS 400-80MG TAB PO SCH (09:28)
[2022-10-24] MEDS: Tamsulosin HCl 0.4 MG CAP PO SCH (09:28)
[2022-10-24] MEDS: Tacrolimus 0.5 MG CAP PO SCH ×2 (09:28→20:48)
[2022-10-24] MEDS: Clopidogrel Bisulfate 75 MG TAB PO SCH (09:29)
[2022-10-24] MEDS: Heparin 5,000 UNITS/ML VIAL SC SCH ×3 (09:29→22:36)
[2022-10-24] MEDS: Atorvastatin Calcium 20 MG TAB PO SCH (20:47)
[2022-10-25] MEDS ORDERED: valGANciclovir 50 MG/ML ORAL SOLN PO SCH (08:00)
[2022-10-25] MEDS: Tacrolimus 0.5 MG CAP PO SCH (08:16)
[2022-10-25] MEDS: Lisinopril 5 MG TAB PO SCH (08:16)
[2022-10-25] MEDS: Sulfameth/Trimethoprim SS 400-80MG TAB PO SCH (08:16)
[2022-10-25] MEDS: Aspirin 81 mg Enteric Coated Tablet PO SCH (08:16)
[2022-10-25] MEDS: Clopidogrel Bisulfate 75 MG TAB PO SCH (08:16)
[2022-10-25] MEDS: Sodium Bicarbonate Tab 325 MG TAB PO SCH (08:16)
[2022-10-25] MEDS: Tamsulosin HCl 0.4 MG CAP PO SCH (08:17)
[2022-10-25] MEDS: Cinacalcet HCl 30 MG TAB PO SCH (08:17)
[2022-10-25] MEDS: predniSONE 5 MG TAB PO SCH (08:17)
[2022-10-25] MEDS: Heparin 5,000 UNITS/ML VIAL SC SCH (08:17)
[2022-10-25] MEDS: Amlodipine 10 MG TAB PO SCH (08:17)
[2022-10-25 12:34] VITALS: BP 144/85; TEMP 97.8
[2022-10-25] MEDS ORDERED: hydrALAZINE 25 MG TAB PO SCH (15:00)
[2022-10-25] MEDS ORDERED: Carvedilol 25 MG TAB PO SCH (17:00)
[2022-10-26] MEDS ORDERED: FLU VACC QS2022-23(6MOS UP)/PF 60 MCG/0.5 ML SYRINGE IM ONE (09:00)
== END 2022-10-25 13:16 | disposition home or self-care (01) | DRG 280 ==
LOC: ERS 12:25 → CCU 17:17 → T4-B 10-24 18:28
PROVIDERS: ADMIT Family Medicine; ATTEND Hospitalist
PROC: 5A1D70Z Performance of Urinary Filtration, Intermittent, Less than 6 Hours Per Day (ICD-10-PCS; principal; 2022-10-23)
DX: I16.1 Hypertensive emergency (principal); N18.6 End stage renal disease; I21.4 Non-ST elevation (NSTEMI) myocardial infarction; T86.12 Kidney transplant failure; I13.2 Hypertensive heart and chronic kidney disease with heart failure and with stage 5 chronic kidney disease, or end stage renal disease; E87.5 Hyperkalemia; N40.0 Benign prostatic hyperplasia without lower urinary tract symptoms; E78.5 Hyperlipidemia, unspecified; D63.1 Anemia in chronic kidney disease; R94.31 Abnormal electrocardiogram [ECG] [EKG]; E87.70 Fluid overload, unspecified; I50.9 Heart failure, unspecified; Z99.2 Dependence on renal dialysis; Z87.891 Personal history of nicotine dependence; Z79.82 Long term (current) use of aspirin; Z79.899 Other long term (current) drug therapy; Z79.52 Long term (current) use of systemic steroids
CPT/HCPCS: 36415; 36416; 71045; 80048; 80053; 81003; 81015; 82553; 82805; 83605; 83735; 83880; 84100; 84484; 85025; 86704; 86706; 87340; 90935; 93005; 93306; 96365; 96375; G0257; J0360; J1644; J2405; J7050; J7507; J7512; J8499; U0002

== ENCOUNTER 2023-07-29 19:56 | Emergency (ER) | payer MEDICARE, MEDICAID ==
[2023-07-29 21:10] LABS: Hematocrit 29.2 % (42.0-52.0); Manual Diff?? YES; Mean Corpuscular HGB CONC 34.2 g/dL (32.0-36.0); Mean Corpuscular Hemoglobin 32.9 pg (27.0-31.0); Mean Corpuscular Volume 96.1 fl (78.0-98.0); Mean Platelet Volume 11.5 fL (7.4-10.4); Platelet Count 110 10x3/uL (130-400); RBC Distribution Width 12.1 % (11.5-14.5); Red Blood Cell (RBC) Count 3.04 mill/uL (4.70-6.10); White Blood Cell (WBC) Count 4.7 10x3/uL (4.8-10.8)
[2023-07-29 21:12] LABS: Delete Auto Diff?? YES
[2023-07-29 21:33] LABS: CellaVision Operator ID lab.sh2; Lymphocytes 8 % (21-51); Monocytes 13 % (0-10); Neutrophil 77 % (42-75); Ovalocytes SLIGHT = 2-5 cells HPF (0-1); Platelet Adequacy Comment Platelets Decreased; Smudge Cells 5.9 %; Total Cell Count 101; Vacuoles SLIGHT
[2023-07-29 21:36] LABS: ALT (SGPT) 7 U/L (8-55); AST (SGOT) 13 U/L (5-34); Albumin 4.1 g/dL (3.5-5.0); Alkaline Phosphatase 48 U/L (40-110); Anion Gap 17 mmol/L (10-20); BUN (Urea Nitrogen) 40 mg/dL (8.9-20.6); Bilirubin, Total 0.7 mg/dL (0.2-1.2); Calc. Creatinine Clearance 0 mL/min (70-130); Calcium 8.5 mg/dL (7.8-10.44); Carbon Dioxide 30 mmol/L (22-29); Chloride 93 mmol/L (98-107); Estimated GFR 4; Globulin 2.3 g/dL (2.4-3.5); Glucose 81 mg/dL (70-105); Potassium 5.1 mmol/L (3.5-5.1); Protein, Total 6.4 g/dL (6.0-8.3); Sodium 135 mmol/L (136-145)
== END 2023-07-29 22:10 | disposition home or self-care (01) ==
LOC: ERS 19:56
DX: U07.1 COVID-19 (principal); I13.2 Hypertensive heart and chronic kidney disease with heart failure and with stage 5 chronic kidney disease, or end stage renal disease; N18.6 End stage renal disease; I50.9 Heart failure, unspecified; Z99.2 Dependence on renal dialysis; Z87.891 Personal history of nicotine dependence
CPT/HCPCS: 36415; 71045; 80053; 85025; 87081; 87430; 87635; 87804; 93005

== ENCOUNTER 2023-10-06 07:47 | Inpatient (IN) | payer MEDICAID, MEDICARE, OTHER ==
[2023-10-06] MEDS ORDERED: hydrALAZINE 20 MG/ML VIAL ONE (08:45)
[2023-10-06 08:48] LABS: #Eosinphils 0.2 thou/uL (0.0-0.7); #Monocytes 0.6 thou/uL (0.11-0.59); #Neutrophils 4.7 thou/uL (1.40-6.50); %Basophils 0.3 % (0.0-1.0); %Eosinophils 2.8 % (0.0-10.0); %Lymphocytes 7.8 % (21.0-51.0); %Monocytes 10.3 % (0.0-10.0); %Neutrophils 78.5 % (42.0-75.0); Hematocrit 30.3 % (42.0-52.0); Hemoglobin 10.4 g/dL (14.0-18.0); Mean Corpuscular HGB CONC 34.3 g/dL (32.0-36.0); Mean Corpuscular Hemoglobin 32.1 pg (27.0-31.0); Mean Corpuscular Volume 93.5 fl (78.0-98.0); Platelet Count 126 10x3/uL (130-400); RBC Distribution Width 12.3 % (11.5-14.5); Red Blood Cell (RBC) Count 3.24 mill/uL (4.70-6.10)
[2023-10-06 09:12] LABS: ALT (SGPT) 7 U/L (8-55); AST (SGOT) 12 U/L (5-34); Albumin 4.5 g/dL (3.5-5.0); Alkaline Phosphatase 51 U/L (40-110); Anion Gap 15 mmol/L (10-20); BUN (Urea Nitrogen) 22 mg/dL (8.9-20.6); Bilirubin, Total 0.7 mg/dL (0.2-1.2); Calc. Creatinine Clearance 0 mL/min (70-130); Carbon Dioxide 30 mmol/L (22-29); Chloride 97 mmol/L (98-107); Estimated GFR 8; Globulin 2.5 g/dL (2.4-3.5); Glucose 79 mg/dL (70-105); Potassium 3.9 mmol/L (3.5-5.1); Sodium 138 mmol/L (136-145)
[2023-10-06 09:15] LABS: Troponin I 0.044 ng/mL (< 0.028)
[2023-10-06] MEDS ORDERED: Aspirin Chewable 81 MG TAB ONE (09:56)
[2023-10-06] MEDS ORDERED: Nitroglycerin 2% Ointment 1 INCH/1 GM Packet ONE (09:56)
[2023-10-06] MEDS ORDERED: Calcium Carbonate 500 MG ChewTAB PO PRN (10:12)
[2023-10-06] MEDS ORDERED: Senokot S 8.6-50 MG TAB PO PRN (10:12)
[2023-10-06] MEDS ORDERED: Ondansetron PF 4 MG/2 ML Vial IVP PRN (10:12)
[2023-10-06] MEDS ORDERED: Guaifenesin DM 100-10/5 ML UDCUP PO PRN (10:12)
[2023-10-06] MEDS ORDERED: HYDROcodone/Acetaminophen 5/325 mg Tablet PO PRN (10:12)
[2023-10-06] MEDS ORDERED: Aspirin Chewable 81 MG TAB PO SCH (10:15)
[2023-10-06] MEDS ORDERED: Nitroglycerin 2% Ointment 1 INCH/1 GM Packet TOP SCH (10:15)
[2023-10-06] MEDS ORDERED: NIFEdipine 10 MG CAP PO SCH (10:15)
[2023-10-06 11:48] VITALS: BMI 29.0
[2023-10-06 13:29] LABS: Troponin I 0.032 ng/mL (< 0.028)
[2023-10-06] MEDS: hydrALAZINE 25 MG TAB PO SCH ×3 (13:35→20:09)
[2023-10-06] MEDS: Nitroglycerin 2% Ointment 1 INCH/1 GM Packet TOP SCH ×2 (13:35→21:10)
[2023-10-06] MEDS ORDERED: Iopamidol-370 76% 500 ML MDV (1 ML CHARGE) ONE (15:09)
[2023-10-06] MEDS: Carvedilol 25 MG TAB PO SCH (16:02)
[2023-10-06] MEDS: Heparin 5,000 UNITS/ML VIAL SC SCH (20:09)
[2023-10-06] MEDS ORDERED: hydrALAZINE 20 MG/ML VIAL SLOW IVP SCH (23:45)
[2023-10-07 05:04] LABS: #Eosinphils 0.2 thou/uL (0.0-0.7); #Monocytes 0.6 thou/uL (0.11-0.59); #Neutrophils 3.2 thou/uL (1.40-6.50); %Basophils 0.7 % (0.0-1.0); %Eosinophils 4.4 % (0.0-10.0); %Lymphocytes 10.9 % (21.0-51.0); %Monocytes 13.3 % (0.0-10.0); %Neutrophils 70.5 % (42.0-75.0); Hematocrit 30.4 % (42.0-52.0); Hemoglobin 10.3 g/dL (14.0-18.0); Mean Corpuscular HGB CONC 33.9 g/dL (32.0-36.0); Mean Corpuscular Hemoglobin 32.1 pg (27.0-31.0); Mean Corpuscular Volume 94.7 fl (78.0-98.0); Mean Platelet Volume 11.7 fL (7.4-10.4); Platelet Count 121 10x3/uL (130-400); RBC Distribution Width 12.3 % (11.5-14.5); Red Blood Cell (RBC) Count 3.21 mill/uL (4.70-6.10); White Blood Cell (WBC) Count 4.5 10x3/uL (4.8-10.8)
[2023-10-07] MEDS: Acetaminophen 325 MG TAB PO PRN ×2 (05:08→09:06)
[2023-10-07] MEDS: Nitroglycerin 2% Ointment 1 INCH/1 GM Packet TOP SCH ×2 (05:09→14:28)
[2023-10-07 05:32] LABS: Albumin 3.7 g/dL (3.5-5.0); Anion Gap 12 mmol/L (10-20); BUN (Urea Nitrogen) 27 mg/dL (8.9-20.6); BUN/Creatinine Ratio 2.99; Calc. Creatinine Clearance 13 mL/min (70-130); Calcium 9.1 mg/dL (7.8-10.44); Carbon Dioxide 31 mmol/L (22-29); Cardiac Risk 2.6 (Less than 4.5); Chloride 99 mmol/L (98-107); Cholesterol 80 mg/dl (< 200 Desired); Estimated GFR 7; Glucose 95 mg/dL (70-105); HDL Cholesterol 31 mg/dL (>60 Neg Risk); LDL Cholesterol, Calculated 36 mg/dL; Phosphorus 4.7 mg/dL (2.3-4.7); Potassium 4.4 mmol/L (3.5-5.1); Sodium 138 mmol/L (136-145); Triglycerides 64 mg/dL (Less than 150)
[2023-10-07] MEDS ORDERED: NIFEdipine XL 30 MG ER.TAB PO SCH (09:00)
[2023-10-07] MEDS: Atorvastatin Calcium 10 MG TAB PO SCH (09:06)
[2023-10-07] MEDS: hydrALAZINE 25 MG TAB PO SCH ×3 (09:06→20:35)
[2023-10-07] MEDS: Aspirin Chewable 81 MG TAB PO SCH (09:06)
[2023-10-07] MEDS: Heparin 5,000 UNITS/ML VIAL SC SCH ×2 (09:07→20:37)
[2023-10-07] MEDS: Carvedilol 25 MG TAB PO SCH ×2 (09:10→17:22)
[2023-10-07] MEDS: Tacrolimus 1 MG CAP PO SCH (20:36)
[2023-10-07] MEDS ORDERED: NIFEdipine XL 90 MG ER.TAB PO SCH (21:00)
[2023-10-08 08:11] VITALS: BP 139/78; TEMP 97.8
[2023-10-08] MEDS ORDERED: Tacrolimus 0.5 MG CAP PO SCH (09:00)
[2023-10-08] MEDS ORDERED: Alogliptin 6.25 MG TAB PO SCH (09:00)
[2023-10-08] MEDS ORDERED: Losartan 25 MG TAB PO SCH (09:00)
[2023-10-08] MEDS ORDERED: Tamsulosin HCl 0.4 MG CAP PO SCH (09:00)
[2023-10-08] MEDS ORDERED: Cinacalcet HCl 30 MG TAB PO SCH (09:00)
[2023-10-08] MEDS: Carvedilol 25 MG TAB PO SCH (09:15)
[2023-10-08] MEDS: hydrALAZINE 25 MG TAB PO SCH (09:15)
[2023-10-08] MEDS: Atorvastatin Calcium 10 MG TAB PO SCH (09:16)
[2023-10-08] MEDS: Nitroglycerin 2% Ointment 1 INCH/1 GM Packet TOP SCH (09:16)
[2023-10-08] MEDS: Aspirin Chewable 81 MG TAB PO SCH (09:16)
[2023-10-08] MEDS: Tacrolimus 1 MG CAP PO SCH (09:16)
[2023-10-08] MEDS: Heparin 5,000 UNITS/ML VIAL SC SCH (09:24)
== END 2023-10-08 12:18 | disposition home or self-care (01) | DRG 640 ==
LOC: ERS 07:47 → 2SW 09:55 → OBSVTOIN 10-07 12:59
PROVIDERS: ADMIT Internal Medicine; ATTEND Internal Medicine
PROC: 5A1D70Z Performance of Urinary Filtration, Intermittent, Less than 6 Hours Per Day (ICD-10-PCS; principal; 2023-10-07)
DX: E87.70 Fluid overload, unspecified (principal); N18.6 End stage renal disease; T86.12 Kidney transplant failure; I13.2 Hypertensive heart and chronic kidney disease with heart failure and with stage 5 chronic kidney disease, or end stage renal disease; I16.0 Hypertensive urgency; Z99.2 Dependence on renal dialysis; D63.1 Anemia in chronic kidney disease; E11.22 Type 2 diabetes mellitus with diabetic chronic kidney disease; I50.9 Heart failure, unspecified; Y83.0 Surgical operation with transplant of whole organ as the cause of abnormal reaction of the patient, or of later complication, without mention of misadventure at the time of the procedure
CPT/HCPCS: 36415; 36416; 71045; 71275; 74174; 80053; 80061; 80069; 83880; 84484; 85025; 90935; 93005; 94760; 96372; 96374; 96376; G0257; G0378; J0360; J1644; J7507; Q9967

== ENCOUNTER 2024-02-25 19:32 | Inpatient (IN) | payer MEDICARE, OTHER ==
[2024-02-25] MEDS ORDERED: niCARdipine 25 MG/10 ML SDV ONE (20:11)
[2024-02-25] MEDS ORDERED: Nitroglycerin 2% Ointment 1 INCH/1 GM Packet ONE (20:11)
[2024-02-25 20:16] LABS: #Basophils Less than 0.03 10x3/uL (0.0-0.2); %Basophils 0.4 % (0.0-1.0); %Eosinophils 3.9 % (0.0-10.0); %Lymphocytes 13.5 % (21.0-51.0); %Monocytes 8.6 % (0.0-10.0); %Neutrophils 73.4 % (42.0-75.0); Hematocrit 28.6 % (42.0-52.0); Hemoglobin 9.8 g/dL (14.0-18.0); Mean Corpuscular HGB CONC 34.3 g/dL (32.0-36.0); Mean Corpuscular Hemoglobin 32.9 pg (27.0-31.0); Mean Platelet Volume 11.5 fL (7.4-10.4); Platelet Count 119 10x3/uL (130-400); RBC Distribution Width 13.2 % (11.5-14.5); Red Blood Cell (RBC) Count 2.98 mill/uL (4.70-6.10)
[2024-02-25 20:21] LABS: ALT (SGPT) 12 U/L (8-55); AST (SGOT) 14 U/L (5-34); Albumin 4.1 g/dL (3.5-5.0); Alkaline Phosphatase 77 U/L (40-110); Anion Gap 22 mmol/L (10-20); BUN (Urea Nitrogen) 65 mg/dL (8.9-20.6); Bilirubin, Total 0.7 mg/dL (0.2-1.2); Calc. Creatinine Clearance 0 mL/min (70-130); Calcium 9.7 mg/dL (7.8-10.44); Carbon Dioxide 24 mmol/L (22-29); Chloride 104 mmol/L (98-107); Estimated GFR 4; Globulin 3.1 g/dL (2.4-3.5); Glucose 85 mg/dL (70-105); Lipase 32 U/L (8-78); Potassium 5.8 mmol/L (3.5-5.1); Protein, Total 7.2 g/dL (6.0-8.3); Sodium 144 mmol/L (136-145)
[2024-02-25 20:26] LABS: Troponin I 0.044 ng/mL (< 0.028)
[2024-02-25 20:34] LABS: Platelet Adequacy Comment Platelets Decreased
[2024-02-25] MEDS ORDERED: cloNIDine 0.1 MG TAB ONE (21:28)
[2024-02-25] MEDS ORDERED: Aspirin Chewable 81 MG TAB ONE (21:28)
[2024-02-25] MEDS ORDERED: Ondansetron PF 4 MG/2 ML Vial IVP PRN (21:30)
[2024-02-25] MEDS ORDERED: Ondansetron ODT 4 MG TAB SL PRN (21:30)
[2024-02-25] MEDS ORDERED: Acetaminophen 650 MG Suppository PR PRN (21:53)
[2024-02-25] MEDS ORDERED: Dextrose 50% Abboject 50 ML SYRINGE SLOW IVP PRN (21:53)
[2024-02-25] MEDS ORDERED: Dextrose 5% in Water 1,000 ML IV PRN (21:53)
[2024-02-25] MEDS ORDERED: HumaLOG 300 UNITS/3 ML VIAL SC PRN ×2 (21:53)
[2024-02-25] MEDS ORDERED: Glucagon 1 MG/ML KIT IM PRN (21:53)
[2024-02-25] MEDS: Tacrolimus 1 MG CAP PO SCH (23:46)
[2024-02-26] MEDS: Carvedilol 6.25 MG TAB PO SCH ×2 (00:28→00:40)
[2024-02-26 00:46] LABS: HBSAB Concentration 33.69 mIU/mL; HBsAg Index 0.33 S/CO (0-0.99); Hep B Core Total Ab NONREACTIVE (NonReactive); Hep B Core Total Index 0.07 S/CO (0-0.79); Hep B Surf AB REACTIVE (NonReactive); Hep B Surf Ag NONREACTIVE S/CO (NonReactive); Hep C IgG Ab Reflex HepC Qnt S/CO (NonReactive)
[2024-02-26 01:12] VITALS: BMI 29.0
[2024-02-26] MEDS: niCARdipine 25 MG in Sodium Chloride 0.9% 250 ML 250 ML IVPB SCH ×2 (06:46→17:47)
[2024-02-26 06:50] LABS: #Basophils Less than 0.03 10x3/uL (0.0-0.2); %Basophils 0.2 % (0.0-1.0); %Eosinophils 2.5 % (0.0-10.0); %Lymphocytes 6.2 % (21.0-51.0); %Neutrophils 83.8 % (42.0-75.0); Hemoglobin 8.6 g/dL (14.0-18.0); Mean Corpuscular HGB CONC 34.4 g/dL (32.0-36.0); Mean Corpuscular Hemoglobin 33.1 pg (27.0-31.0); Mean Corpuscular Volume 96.2 fL (78.0-98.0); Mean Platelet Volume 11.3 fL (7.4-10.4); Platelet Count 106 10x3/uL (130-400)
[2024-02-26 06:59] LABS: Anion Gap 19 mmol/L (10-20); BUN (Urea Nitrogen) 50 mg/dL (8.9-20.6); Calc. Creatinine Clearance 13 mL/min (70-130); Calcium 8.7 mg/dL (7.8-10.44); Carbon Dioxide 26 mmol/L (22-29); Chloride 101 mmol/L (98-107); Estimated GFR 7; Glucose 84 mg/dL (70-105); Potassium 4.8 mmol/L (3.5-5.1); Sodium 141 mmol/L (136-145)
[2024-02-26] MEDS: Atorvastatin Calcium 20 MG TAB PO SCH (08:03)
[2024-02-26] MEDS: Cinacalcet HCl 30 MG TAB PO SCH (08:03)
[2024-02-26] MEDS: Carvedilol 25 MG TAB PO SCH (08:03)
[2024-02-26] MEDS: Tacrolimus 0.5 MG CAP PO SCH (08:03)
[2024-02-26] MEDS: Losartan 25 MG TAB PO SCH (08:03)
[2024-02-26] MEDS: Heparin 5,000 UNITS/ML VIAL SC SCH (08:03)
[2024-02-26] MEDS: Aspirin 325 MG TAB PO SCH (08:03)
[2024-02-26] MEDS: Aspirin Chewable 81 MG TAB PO SCH (08:10)
[2024-02-26] MEDS: hydrALAZINE 25 MG TAB PO PRN (11:23)
[2024-02-26] MEDS: Acetaminophen 325 MG TAB PO PRN (11:26)
[2024-02-26] MEDS ORDERED: Labetalol HCl 100 MG/20 ML VIAL SLOW IVP PRN (13:35)
[2024-02-26] MEDS ORDERED: hydrALAZINE 20 MG/ML VIAL SLOW IVP PRN ×2 (13:35→13:38)
[2024-02-26] MEDS: Labetalol HCl 100 MG/20 ML VIAL SLOW IVP PRN (13:54)
[2024-02-26 13:55] VITALS: BP 177/93
[2024-02-26] MEDS: Tamsulosin HCl 0.4 MG CAP PO SCH (21:17)
[2024-02-26] MEDS: NIFEdipine XL 90 MG ER.TAB PO SCH (21:18)
[2024-02-27 04:34] LABS: #Basophils Less than 0.03 10x3/uL (0.0-0.2); %Basophils 0.5 % (0.0-1.0); %Eosinophils 3.8 % (0.0-10.0); %Monocytes 13.2 % (0.0-10.0); %Neutrophils 72.3 % (42.0-75.0); Hematocrit 24.2 % (42.0-52.0); Hemoglobin 8.3 g/dL (14.0-18.0); Mean Corpuscular HGB CONC 34.3 g/dL (32.0-36.0); Mean Corpuscular Hemoglobin 31.8 pg (27.0-31.0); Mean Corpuscular Volume 92.7 fL (78.0-98.0); Mean Platelet Volume 12.2 fL (7.4-10.4); Platelet Count 95 10x3/uL (130-400); RBC Distribution Width 12.4 % (11.5-14.5); Red Blood Cell (RBC) Count 2.61 mill/uL (4.70-6.10)
[2024-02-27 04:41] LABS: Anion Gap 19 mmol/L (10-20); BUN (Urea Nitrogen) 42 mg/dL (8.9-20.6); Calc. Creatinine Clearance 12 mL/min (70-130); Calcium 8.8 mg/dL (7.8-10.44); Carbon Dioxide 25 mmol/L (22-29); Chloride 99 mmol/L (98-107); Estimated GFR 6; Glucose 96 mg/dL (70-105); Potassium 4.3 mmol/L (3.5-5.1); Sodium 139 mmol/L (136-145)
[2024-02-27 05:20] VITALS: TEMP 98.2
[2024-02-28 00:37] LABS: Hep C PCR-Quant HCV Not Detected IU/mL (.)
== END 2024-02-27 11:45 | disposition home or self-care (01) | DRG 304 ==
LOC: ERS 19:32 → CCU 21:29 → T4-B 02-27 09:42
PROVIDERS: ADMIT Student in an Organized Health Care Education/Training Program; ATTEND Hospitalist
DX: I16.1 Hypertensive emergency (principal); J96.01 Acute respiratory failure with hypoxia; N18.6 End stage renal disease; Z94.0 Kidney transplant status; E87.20 Acidosis, unspecified; I16.0 Hypertensive urgency; I13.2 Hypertensive heart and chronic kidney disease with heart failure and with stage 5 chronic kidney disease, or end stage renal disease; Z79.899 Other long term (current) drug therapy; Z79.82 Long term (current) use of aspirin; I50.9 Heart failure, unspecified; E11.22 Type 2 diabetes mellitus with diabetic chronic kidney disease; Z87.891 Personal history of nicotine dependence; Z99.2 Dependence on renal dialysis; E87.5 Hyperkalemia; D63.1 Anemia in chronic kidney disease; D69.6 Thrombocytopenia, unspecified
CPT/HCPCS: 36415; 36416; 71045; 80048; 80053; 83690; 83880; 84484; 85025; 86704; 86706; 86803; 87340; 87522; 93005; 94660; 94760; 96365; 96366; J1644; J7050; J7507

== ENCOUNTER 2024-08-20 22:59 | Inpatient (IN) | payer MEDICARE, OTHER ==
[2024-08-20] MEDS ORDERED: Cefepime 2 GM VIAL ONE (23:32)
[2024-08-20] MEDS ORDERED: Sodium Chloride 0.9% 100 ML ONE (23:32)
[2024-08-20] MEDS ORDERED: Nitroglycerin 2% Ointment 1 INCH/1 GM Packet ONE (23:32)
[2024-08-20] MEDS ORDERED: Ipratropium/Albuterol 3 ML NEB ONE (23:46)
[2024-08-21] LABS: #Basophils 0.04 10x3/uL (0.0-0.2); %Basophils 0.8 % (0.0-1.0); %Eosinophils 6.5 % (0.0-10.0); %Lymphocytes 10.6 % (21.0-51.0); %Monocytes 9.4 % (0.0-10.0); %Neutrophils 72.5 % (42.0-75.0); Hematocrit 30.3 % (42.0-52.0); Hemoglobin 10.3 g/dL (14.0-18.0); Mean Corpuscular Hemoglobin 32.3 pg (27.0-31.0); Mean Platelet Volume 11.8 fL (7.4-10.4); Platelet Count 115 10x3/uL (130-400); RBC Distribution Width 13.1 % (11.5-14.5); Red Blood Cell (RBC) Count 3.19 mill/uL (4.70-6.10)
[2024-08-21 00:24] LABS: Platelet Adequacy Comment Platelets Decreased; RBC Morphology Within Normal Limits
[2024-08-21 00:34] LABS: ALT (SGPT) 11 U/L (8-55); AST (SGOT) 13 U/L (5-34); Alkaline Phosphatase 66 U/L (40-110); Anion Gap 22 mmol/L (10-20); BUN (Urea Nitrogen) 55 mg/dL (8.9-20.6); Bilirubin, Total 0.6 mg/dL (0.2-1.2); Calc. Creatinine Clearance 0 mL/min (70-130); Calcium 9.1 mg/dL (7.8-10.44); Carbon Dioxide 24 mmol/L (22-29); Chloride 95 mmol/L (98-107); Estimated GFR 5; Globulin 2.9 g/dL (2.4-3.5); Glucose 86 mg/dL (70-105); Potassium 5.4 mmol/L (3.5-5.1); Protein, Total 6.9 g/dL (6.0-8.3); Sodium 136 mmol/L (136-145)
[2024-08-21 00:37] LABS: Troponin I 0.037 ng/mL (< 0.028)
[2024-08-21] MEDS ORDERED: Labetalol HCl 100 MG/20 ML VIAL ONE (01:59)
[2024-08-21] MEDS ORDERED: Ondansetron PF 4 MG/2 ML Vial IVP PRN (03:42)
[2024-08-21] MEDS ORDERED: Dextrose 50% Abboject 50 ML SYRINGE SLOW IVP PRN (03:44)
[2024-08-21] MEDS ORDERED: Glucagon 1 MG/ML KIT IM PRN (03:44)
[2024-08-21] MEDS ORDERED: Insulin Lispro 100 UNIT/ML 10 ML VIAL SC PRN (03:44)
[2024-08-21] MEDS ORDERED: Dextrose 5% in Water 1,000 ML IV PRN (03:44)
[2024-08-21] MEDS ORDERED: niCARdipine 25 MG/10 ML SDV ONE (03:55)
[2024-08-21] MEDS ORDERED: Ipratropium/Albuterol 3 ML NEB EZPAP PRN (04:04)
[2024-08-21 04:07] VITALS: BMI 26.8
[2024-08-21 06:54] LABS: Troponin I 0.039 ng/mL (< 0.028)
[2024-08-21 07:56] LABS: Troponin I 0.036 ng/mL (< 0.028)
[2024-08-21 08:53] LABS: HBSAB Concentration 35.88 mIU/mL; HBsAg Index 0.37 S/CO (0-0.99); Hep B Core Total Ab NONREACTIVE (NonReactive); Hep B Core Total Index 0.07 S/CO (0-0.79); Hep B Surf AB REACTIVE (NonReactive); Hep B Surf Ag NONREACTIVE S/CO (NonReactive); Hep C IgG Ab Reflex HepC Qnt S/CO (NonReactive); Hep C Index 12.23 S/CO (0-0.79)
[2024-08-21] MEDS: Carvedilol 25 MG TAB PO SCH (08:59)
[2024-08-21] MEDS ORDERED: Heparin 5,000 UNITS/ML VIAL SC SCH (09:00)
[2024-08-21] MEDS ORDERED: Carvedilol 25 MG TAB PO SCH (09:00)
[2024-08-21] MEDS: NIFEdipine XL 90 MG ER.TAB PO SCH (09:01)
[2024-08-21] MEDS: Labetalol HCl 100 MG/20 ML VIAL SLOW IVP PRN (09:26)
[2024-08-21] MEDS: Tacrolimus 0.5 MG CAP PO SCH ×2 (10:36→10:37)
[2024-08-21] MEDS: Tacrolimus 1 MG CAP PO SCH ×2 (10:39→22:17)
[2024-08-21] MEDS: Aspirin 81 mg Enteric Coated Tablet PO SCH (10:41)
[2024-08-21] MEDS: Heparin 5,000 UNITS/ML VIAL SC SCH (10:41)
[2024-08-21] MEDS: Losartan 25 MG TAB PO SCH (10:47)
[2024-08-21] MEDS: Pantoprazole 40 MG VIAL IVP SCH (10:51)
[2024-08-21] MEDS: Saxagliptin 2.5 MG TAB PO SCH ×2 (11:02→11:03)
[2024-08-21] MEDS: niCARdipine 25 MG in Sodium Chloride 0.9% 250 ML 250 ML IVPB SCH (12:32)
[2024-08-21] MEDS: hydrALAZINE 25 MG TAB PO PRN (13:38)
[2024-08-21] MEDS: hydrALAZINE 20 MG/ML VIAL ONE (13:39)
[2024-08-21] MEDS: Acetaminophen 325 MG TAB PO PRN (13:43)
[2024-08-21] MEDS: cloNIDine 0.1 MG TAB PO SCH (20:51)
[2024-08-21] MEDS: Atorvastatin Calcium 20 MG TAB PO SCH (20:52)
[2024-08-21] MEDS: hydrALAZINE 25 MG TAB PO SCH (20:53)
[2024-08-21] MEDS: Tamsulosin HCl 0.4 MG CAP PO SCH (20:53)
[2024-08-21] MEDS: hydrALAZINE 20 MG/ML VIAL SLOW IVP SCH (23:30)
[2024-08-22 06:40] LABS: Anion Gap 17 mmol/L (10-20); BUN (Urea Nitrogen) 34 mg/dL (8.9-20.6); Calc. Creatinine Clearance 13 mL/min (70-130); Calcium 8.8 mg/dL (7.8-10.44); Carbon Dioxide 24 mmol/L (22-29); Chloride 100 mmol/L (98-107); Estimated GFR 7; Glucose 84 mg/dL (70-105); Potassium 4.8 mmol/L (3.5-5.1); Sodium 136 mmol/L (136-145)
[2024-08-22 06:49] LABS: #Basophils Less than 0.03 10x3/uL (0.0-0.2); %Basophils 0.5 % (0.0-1.0); %Eosinophils 5.5 % (0.0-10.0); %Lymphocytes 7.4 % (21.0-51.0); %Monocytes 11.5 % (0.0-10.0); %Neutrophils 74.9 % (42.0-75.0); Hemoglobin 8.7 g/dL (14.0-18.0); Mean Corpuscular HGB CONC 33.5 g/dL (32.0-36.0); Mean Corpuscular Hemoglobin 31.4 pg (27.0-31.0); Mean Corpuscular Volume 93.9 fL (78.0-98.0); Mean Platelet Volume 12.3 fL (7.4-10.4); Platelet Count 96 10x3/uL (130-400); RBC Distribution Width 12.9 % (11.5-14.5); Red Blood Cell (RBC) Count 2.77 mill/uL (4.70-6.10)
[2024-08-22] MEDS: Alogliptin 6.25 MG TAB PO SCH (07:57)
[2024-08-22] MEDS ORDERED: Losartan 25 MG TAB PO SCH ×2 (09:00)
[2024-08-22] MEDS: Losartan 25 MG TAB PO SCH (09:39)
[2024-08-22] MEDS: Minoxidil 10 MG TAB PO SCH (09:40)
[2024-08-22] MEDS: hydrALAZINE 25 MG TAB PO SCH (09:40)
[2024-08-22] MEDS: Pantoprazole DR 40 MG TAB PO SCH (09:41)
[2024-08-22] MEDS: Saxagliptin 2.5 MG TAB PO SCH (09:42)
[2024-08-22] MEDS: Tacrolimus 0.5 MG CAP PO SCH (09:43)
[2024-08-22 13:12] LABS: Campy jejuni + coli by PCR Negative (Negative); STEC Shiga Toxin 1+2 Negative (Negative); Salmonella spp. by PCR Negative (Negative); Shigella spp + EIEC by PCR Negative (Negative)
[2024-08-22] MEDS ORDERED: Albumin 25% 25 GM (100 mL) BOT IVPB PRN (14:11)
[2024-08-22 14:38] VITALS: BMI 26.8
[2024-08-22] MEDS: NIFEdipine XL 90 MG ER.TAB PO SCH (20:38)
[2024-08-22] MEDS: Insulin Lispro 100 UNIT/ML 10 ML VIAL SC PRN (20:39)
[2024-08-23 05:21] LABS: #Basophils Less than 0.03 10x3/uL (0.0-0.2); %Basophils 0.5 % (0.0-1.0); %Eosinophils 6.6 % (0.0-10.0); %Monocytes 11.7 % (0.0-10.0); %Neutrophils 72.9 % (42.0-75.0); Hemoglobin 9.2 g/dL (14.0-18.0); Mean Corpuscular HGB CONC 34.1 g/dL (32.0-36.0); Mean Corpuscular Hemoglobin 32.1 pg (27.0-31.0); Mean Corpuscular Volume 94.1 fL (78.0-98.0); Platelet Count 112 10x3/uL (130-400); RBC Distribution Width 12.9 % (11.5-14.5); Red Blood Cell (RBC) Count 2.87 mill/uL (4.70-6.10)
[2024-08-23 06:03] LABS: Anion Gap 18 mmol/L (10-20); BUN (Urea Nitrogen) 49 mg/dL (8.9-20.6); Calc. Creatinine Clearance 9 mL/min (70-130); Calcium 9.2 mg/dL (7.8-10.44); Carbon Dioxide 23 mmol/L (22-29); Chloride 102 mmol/L (98-107); Estimated GFR 5; Glucose 105 mg/dL (70-105); Potassium 4.9 mmol/L (3.5-5.1); Sodium 138 mmol/L (136-145)
[2024-08-23 13:57] VITALS: BP 108/63; TEMP 98.5
[2024-08-25 00:07] LABS: Tacrolimus 1.6 ng/mL (2.0-20.0)
== END 2024-08-23 13:57 | disposition home or self-care (01) | DRG 640 ==
LOC: ERS 22:59 → ERHOLD 08-21 02:49 → CCU 08-21 04:43 → T4-B 08-21 18:10
PROVIDERS: ADMIT Internal Medicine; ATTEND Internal Medicine
DX: E87.70 Fluid overload, unspecified (principal); J96.01 Acute respiratory failure with hypoxia; N18.6 End stage renal disease; I13.0 Hypertensive heart and chronic kidney disease with heart failure and stage 1 through stage 4 chronic kidney disease, or unspecified chronic kidney disease; I16.1 Hypertensive emergency; I50.32 Chronic diastolic (congestive) heart failure; E87.5 Hyperkalemia; E11.22 Type 2 diabetes mellitus with diabetic chronic kidney disease; D63.1 Anemia in chronic kidney disease; Z79.899 Other long term (current) drug therapy
CPT/HCPCS: 36415; 36416; 71045; 80048; 80053; 80197; 83605; 83880; 84484; 85025; 86704; 86706; 86803; 87040; 87324; 87340; 87428; 87449; 87505; 93005; 94640; 94660; 96374; 96375; J0360; J0692; J1644; J2470; J7050; J7507; J7620